=== PATIENT | female | born 1945 | race Caucasian/White ===

== ENCOUNTER 2017-12-29 15:57 | Inpatient (IN) | payer MEDICARE, BC ==
[2017-12-29] MEDS ORDERED: IPRATROPIUM-ALBUTEROL 3 ML NEB INHALATION STA (16:37)
--- NOTE | 2017-12-29 16:37 | ED ---
Skin/Abscess/FB HPI - General Chief complaint: Skin/Abscess/Foreign Body Stated complaint: Cellulitis Time Seen by Provider: 12/29/17 16:04 Source: EMS Mode of arrival: EMS Limitations: no limitations - History of Present Illness Initial comments: This is a 72-year-old female who presents to the ED with a chief complaint of sepsis with cellulitis of the left lower extremity which has been worsening over the last 3 weeks. The patient was transferred here from [facility] where she was given IV Vancomycin and Clindamycin. Chest x-rays, CBC, Troponin, BNP, BMP, and Lactic Acid were ordered during her stay at [facility]. Chest x-ray was unable to distinguish between a 5cm mass versus pneumonia. CBC revealed leukocytosis with elevated neutrophils. BNP was elevated at 189. BMP showed mild hyponatremeia. Lactic acid was elevated at 2.3. She had an albuterol nebulizer treatment. She has a significant history of congestive heart failure and COPD and reports having chronic lower extremity pitting edema. The patient is here for admission. - Related Data Home Medications Medication Instructions Recorded Confirmed Ipratropium-Albuterol Nebulize 3 ml IH RT-TID 12/29/17 12/29/17 [Duoneb 0.5 mg-3 mg/3 ml Soln] Previous Rx's Medication Instructions Recorded Furosemide [Lasix] 40 mg PO DAILY #30 tablet 06/11/15 Allergies Allergy/AdvReac Type Severity Reaction Status Date / Time Penicillins Allergy Unknown Verified 06/06/15 18:40 strawberry Allergy Unknown Verified 06/06/15 22:32 Review of Systems ROS Statement: Those systems with pertinent positive or pertinent negative responses have been documented in the HPI. ROS Other: All systems not noted in ROS Statement are negative. Past Medical History Past Medical History: Heart Failure, COPD Additional Past Medical History / Comment(s): 06-06-15 ADMITTED TO [facility] WITH COPD /CHF, OTHER HX HAND TREMORS(OCC). 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) Past Anesthesia/Blood Transfusion Reactions: No Reported Reaction Past Psychological History: No Psychological Hx Reported Smoking Status: Former smoker Past Alcohol Use History: Daily Past Drug Use History: None Reported - Past Family History Mother Family Medical History: Congestive Heart Failure (CHF), Coronary Artery Disease (CAD), Hyperlipidemia, Hypertension Additional Family Medical History / Comment(s): CABG Father Family Medical History: Cancer, Myocardial Infarction ([place]) General Exam Limitations: no limitations General appearance: alert, in no apparent distress Head exam: Present: atraumatic, normocephalic, normal inspection Eye exam: Present: normal appearance, PERRL, EOMI. Absent: scleral icterus, conjunctival injection, periorbital swelling Neck exam: Present: normal inspection. Absent: tenderness, meningismus, lymphadenopathy Respiratory exam: Present: respiratory distress, wheezes, accessory muscle use, other (labored breathing). Absent: normal lung sounds bilaterally Cardiovascular Exam: Present: normal rhythm, tachycardia, other (diminished heart sounds) GI/Abdominal exam: Present: normal bowel sounds Extremities exam: Present: other (Significant lower extremity pitting edema bilaterally. The left lower extremity is erythematous and significantly more edematous than the right and is indurated. Pedal pulses equal bilaterally) Back exam: Present: normal inspection Neurological exam: Present: alert, oriented X3, CN II-XII intact Psychiatric exam: Present: normal affect, normal mood Skin exam: Present: warm, dry, intact, normal color. Absent: rash Course Vital Signs 12/29/17 16:05 Temperature 98 F Pulse Rate 107 H Respiratory 16 Rate Blood Pressure 133/64 O2 Sat by Pulse 96 Oximetry Disposition Clinical Impression: COPD (chronic obstructive pulmonary disease), Lung mass, Left leg cellulitis, Sepsis Disposition: ADMITTED IP TO THIS HOSP Condition: Fair Referrals: Gabriel Rodriguez MD [Primary Care Provider] - 1-2 days
[2017-12-29] MEDS ORDERED: ACETAMINOPHEN TAB 325 MG TAB PO PRN (16:50)
[2017-12-29] MEDS ORDERED: NALOXONE 0.4 MG/ML 1 ML VIAL IV PRN (16:50)
[2017-12-29] MEDS ORDERED: VANCOMYCIN IV PER PHARMACY 1 EACH MISC MISCELLANE PRN (16:52)
[2017-12-29] MEDS ORDERED: TEMAZEPAM 15 MG CAP PO PRN (17:25)
[2017-12-29] MEDS ORDERED: HYDROmorphone 4 MG/ML 1 ML SYRINGE IVP PRN (17:25)
--- NOTE | 2017-12-29 17:33 | US ---
EXAMINATION TYPE: US venous doppler duplex LE LT DATE OF EXAM: 12/29/2017 5:12 PM COMPARISON: NONE CLINICAL HISTORY: Pain. Cellulitis left lower leg SIDE PERFORMED: Left TECHNIQUE: The lower extremity deep venous system is examined utilizing real time linear array sonog anabelle with graded compression, doppler sonography and color-flow sonography. VESSELS IMAGED: External Iliac Vein (EIV) Common Femoral Vein Deep Femoral Vein Greater Saphenous Vein * Femoral Vein Popliteal Vein Small Saphenous Vein * Proximal Calf Veins (* superficial vessels) Grayscale, color doppler, spectral doppler imaging performed of the deep veins of the lower extremity . There is normal flow, compressibility, vascular waveforms. IMPRESSION: Left Leg: No evidence of DVT
[2017-12-29] MEDS: INSULIN ASPART 100 UNIT/ML 1 ML 10 ML VIAL SQ SCH ×2 (17:48→20:07)
[2017-12-29] MEDS ORDERED: LEVOFLOXACIN 750MG-D5W PMX 750 MG in DEXTROSE/WATER 1 150ML.BAG IVPB ONE (18:00)
[2017-12-29] MEDS: methylPREDNISolone SOD SUCCI 125 MG/2 ML VIAL IV SCH ×2 (19:42→23:07)
[2017-12-29] MEDS ORDERED: IPRATROPIUM-ALBUTEROL 3 ML NEB INHALATION SCH (20:00)
[2017-12-29] MEDS: HYDROcodone/APAP 5-325MG 1 EACH TAB PO PRN (20:03)
[2017-12-29] MEDS: ALPRAZolam 0.25 MG TAB PO PRN (20:04)
[2017-12-29] MEDS: HEPARIN SODIUM,PORCINE 5,000 UNIT/ML 1 ML VIAL SQ SCH (20:04)
[2017-12-29 20:15] LABS: Glucose,Whole Blood 100 mg/dL (75-99)
[2017-12-29] MEDS: BUDESONIDE 1 MG/2 ML NEBU INHALATION SCH (20:52)
[2017-12-29] MEDS: FORMOTEROL FUMARATE 20 MCG/2 ML NEBU INHALATION SCH (20:53)
--- NOTE | 2017-12-29 21:38 | HP ---
HISTORY AND PHYSICAL DATE OF SERVICE: 12/29/17 CHIEF COMPLAINT: Shortness of breath and bilateral leg swelling. HISTORY: 72-year-old woman with past medical history of COPD, CHF, history of dermatitis, eczema, being followed by Dr. Mendiola in the outpatient setting, was complaining of shortness of breath for the last several years actually. The patient did not report any increase in the shortness of breath. The patient is extremely short of breath. The patient is a smoker and quit about 3 years ago. The patient is now complaining of redness and erythema of both legs and swelling also. The patient went to [facility] and subsequently was given antibiotics and transferred to [facility] Emergency Room as a direct admission at this time. There is no history of fever, rigors or chills. No headache, loss of consciousness or seizures at this time. PAST MEDICAL HISTORY: CHF, COPD, history of hand tremors, eczema, history of chronic respiratory failure. MEDICATIONS: Prior to admission include home medications are: 1. Prednisone 10 mg daily. 2. Pulmicort 0.5 mg b.i.d. 3. DuoNeb p.r.n. t.i.d. 4. Lasix 40 mg p.o. daily. ALLERGIES: PENICILLIN AND STRAWBERRIES. FAMILY HISTORY: History of CHF and CAD. Hypertension. Diabetes in the family. SOCIAL HISTORY: Previous history of smoking. Occasional alcohol intake. REVIEW OF SYSTEMS: ENT: No diminished vision, no diminished hearing. Cardiovascular System as mentioned earlier. RESPIRATORY: As mentioned earlier. GI no nausea or vomiting. no dysuria. Nervous system: No numbness, weakness. Allergy/Immunology: No asthma or hayfever. Musculoskeletal as mentioned earlier. Hematology/oncology: No history of anemia. Endocrine no history of diabetes or hypothyroidism. Constitutional: As mentioned earlier. Dermatology: Negative. Rheumatology: Negative. Psychiatric: As mentioned earlier. PHYSICAL EXAMINATION: The patient is alert and oriented x3. Pulse is 107. Blood pressure 130/84. Respirations 18. Temperature 98 degrees, pulse ox 98% on 2 L. HEENT: Conjunctivae normal. Oral mucosa moist. Neck is no jugular venous distention. No carotid bruit. No lymph node enlargement. Cardiovascular system: S1, S2 muffled. No S3, no S4. Respirations: Breath sounds diminished in the bases. A few scattered rhonchi and crackles. ABDOMEN: Soft, nontender. No mass palpable. Legs bilateral leg swelling and edema. Tenderness with some minimal discharge also present. NERVOUS SYSTEM: Higher functions as mentioned earlier, moves all 4 limbs, no focal motor or sensory deficits. Lymphatics: No lymph nodes palpable in the neck, axillae or groin. Skin no ulcer, rash or bleeding. LABS: At this time awaited. ASSESSMENT: 1. Chronic obstructive pulmonary disease acute exacerbation with acute purulent tracheobronchitis. 2. Acute bilateral leg cellulitis. 3. Chronic cor pulmonale. 4. Chronic hypoxic respiratory failure. 5. History of nicotine dependence. 6. History of eczema. 7. History of asthma. RECOMMENDATIONS AND DISCUSSION: In this 72-year-old woman who presented with multiple complex medical issues, we will monitor the patient closely. Continue the symptomatic treatment. Current management. We will initiate bronchodilators. Pulmonary consultation for infectious disease evaluation. Local treatment. Otherwise guarded prognosis because of multiple complex medical issues. Further recommendations to follow. Copy of dictation being forwarded to Dr. Mendiola who is the primary care physician. Home medications will be resumed. Prognosis guarded. MMODL / IJN: [id number] /
[2017-12-29] MEDS ORDERED: IPRATROPIUM-ALBUTEROL 3 ML NEB INHALATION PRN (22:44)
[2017-12-30] MEDS: methylPREDNISolone SOD SUCCI 125 MG/2 ML VIAL IV SCH ×3 (05:27→17:48)
[2017-12-30 06:55] LABS: Glucose,Whole Blood 186 mg/dL (75-99)
[2017-12-30] MEDS: INSULIN ASPART 100 UNIT/ML 1 ML 10 ML VIAL SQ SCH ×4 (07:40→21:55)
[2017-12-30] MEDS: PANTOPRAZOLE 40 MG TABLET PO SCH (08:28)
[2017-12-30] MEDS: HEPARIN SODIUM,PORCINE 5,000 UNIT/ML 1 ML VIAL SQ SCH ×2 (08:28→17:49)
[2017-12-30] MEDS ORDERED: VANCOMYCIN 1,750 MG in SODIUM CHLORIDE 0.9% 250 ML IVPB SCH (09:00)
[2017-12-30] MEDS: FORMOTEROL FUMARATE 20 MCG/2 ML NEBU INHALATION SCH ×2 (09:01→20:25)
[2017-12-30] MEDS: IPRATROPIUM-ALBUTEROL 3 ML NEB INHALATION SCH ×4 (09:01→20:25)
[2017-12-30] MEDS: BUDESONIDE 1 MG/2 ML NEBU INHALATION SCH ×2 (09:01→20:25)
[2017-12-30] MEDS ORDERED: HYDROmorphone 2 MG TAB PO PRN (10:07)
--- NOTE | 2017-12-30 10:28 | XR ---
EXAMINATION TYPE: XR chest 1V portable DATE OF EXAM: 12/30/2017 COMPARISON: 12/29/2017 HISTORY: Abnormal x-ray TECHNIQUE: Single frontal view of the chest is obtained. FINDINGS: Large mass within the right lung lower lobe. Atherosclerotic change aorta. Arthropathy of the shoulders. No overt failure or pneumothorax. Underlying COPD suggested. Evaluation left lung base limited due to technique. IMPRESSION: Large right-sided lung mass measuring 4.2 cm.
[2017-12-30 10:54] LABS: Basophils % (A) 0 %; Eosinophils % (A) 0 %; HCT 37.6 % (34.0-46.0); HGB 11.3 gm/dL (11.4-16.0); Hypochromasia Moderate; Lymphocytes # (A) 0.3 k/uL (1.0-4.8); Lymphocytes % (A) 2 %; MCH 27.4 pg (25.0-35.0); MCHC 30.1 g/dL (31.0-37.0); MCV 91.2 fL (80.0-100.0); Mean Platelet Volume 7.1; Monocytes # (A) 0.3 k/uL (0-1.0); Monocytes % (A) 2 %; Neutrophils # (A) 14.8 k/uL (1.3-7.7); Neutrophils % (A) 96 %; Platelet Count 235 k/uL (150-450); RBC 4.12 m/uL (3.80-5.40); WBC 15.4 k/uL (3.8-10.6)
[2017-12-30 11:10] LABS: Albumin 3.5 g/dL (3.5-5.0); Calcium 9.1 mg/dL (8.4-10.2); Potassium 3.9 mmol/L (3.5-5.1); Total Bilirubin 0.4 mg/dL (0.2-1.3); Total Protein 6.4 g/dL (6.3-8.2)
[2017-12-30] MEDS ORDERED: DRY MOUTH SPRAY 44.3 SPRAY/44.3 ML SPRAY MUCOUS MEM PRN (11:20)
[2017-12-30 11:48] LABS: Glucose,Whole Blood 156 mg/dL (75-99)
[2017-12-30 12:00] LABS: Hemoglobin A1C 5.7 % (4.0-6.0)
[2017-12-30] MEDS: MULTIVITAMINS, THERA 1 EACH TAB PO SCH (12:39)
--- NOTE | 2017-12-30 14:55 | CDI ---
Last Revision, October 2017 Documentation Clarification Form Date: 12/30/2017 2:46:00 PM From: Glendy Bowden RN Admit Date: 12/29/2017 4:54:00 PM Patient Name: Milagro Amaro Visit Number: [id number] ATTENTION: The Clinical Documentation Specialists (CDI) and [facility] Coding Staff appreciate your assistance in clarifying documentation. Please respond to the clarification below the line at the bottom and electronically sign. The CDI & [facility] Coding staff will review the response and follow-up if needed. Please note: Queries are made part of the Legal Health Record. If you have any questions, please contact the author of this message via ITS. Dr. Bean Arellano, History/Risk Factors: CHF, COPD, eczema, chronic respiratory failure Clinical Indicators: Patients labs on admission BUN/CR/GFR: 25/. Treatment: Monitor labs In order to capture the severity of condition, please clarify if the condition signifies: Acute kidney injury Acute on chronic renal failure CKD Stage 3 GFR 30-59 CKD Stage 4 GFR 15-29 Chronic renal failure/Chronic Kidney disease (CKD) please stage if known CKD Stage 2 GFR 60-89 CKD Stage 3 GFR 30-59 Other, please specify Unable to determine Please continue to document in your progress notes and discharge summary in order to capture severity of illness and risk of mortality. Include clinical findings that support your diagnosis. CKD Stage 3 GFR 30-59 MTDD
[2017-12-30] MEDS ORDERED: RX INFO: IV CONTRAST WAS GIVEN 1 EACH MISC MISCELLANE PRN (15:50)
--- NOTE | 2017-12-30 15:53 | P.CNPUL ---
History of Present Illness Consult date: 12/30/17 Reason for consult: dyspnea, cough Chief complaint: Shortness of breath History of present illness: This is a 72-year-old female who presented to the emergency department complaining of shortness of breath and leg swelling. The patient was seen by Dr. SOPHIA Samayoa in the office on 12/23/2017 with shortness of breath. The patient was advised admission to the hospital and further work up at that time, but refused and left the office against medical advice. She also refused Prednisone and further medications at the time. The patient's last PFT was 07.18 and showed very severe COPD with an FEV1 26% of predicted. The patient states she quit smoking about 3 years ago. She states she has lost some weight recently. She used to weigh 212 pounds and now she is down 288 pounds. She is complaining of bilateral leg swelling. She also complains of a cough with occasional phlegm. She denies fevers and chills. She takes Pulmicort twice a day and duo nebs 3-4 times a day at home. She states she has been on steroids for the last 3 years consistently. Review of Systems All systems: negative Past Medical History Past Medical History: Heart Failure, COPD Additional Past Medical History / Comment(s): 06-06-15 ADMITTED TO [facility] WITH COPD /CHF, OTHER HX HAND TREMORS(OCC). 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 Smoking Status: Former smoker Past Alcohol Use History: Daily Additional Past Alcohol Use History / Comment(s): pt states she hasnt smoked in 3 years. Past Drug Use History: None Reported - Past Family History Mother Family Medical History: Congestive Heart Failure (CHF), Coronary Artery Disease (CAD), Hyperlipidemia, Hypertension Additional Family Medical History / Comment(s): CABG Father Family Medical History: Cancer, Myocardial Infarction ([place]) Medications and Allergies Home Medications Medication Instructions Recorded Confirmed Type Furosemide [Lasix] 40 mg PO DAILY #30 tablet 06/11/15 12/29/17 Rx Budesonide [Pulmicort] 0.5 mg INHALATION RT-BID 12/29/17 12/29/17 History Ipratropium-Albuterol Nebulize 3 ml IH RT-TID 12/29/17 12/29/17 History [Duoneb 0.5 mg-3 mg/3 ml Soln] predniSONE 10 mg PO DAILY 12/29/17 12/29/17 History Allergies Allergy/AdvReac Type Severity Reaction Status Date / Time Penicillins Allergy Unknown Verified 12/29/17 16:51 strawberry Allergy Unknown Verified 12/29/17 16:51 Physical Exam Osteopathic Statement: *. No significant issues noted on an osteopathic structural exam other than those noted in the History and Physical/Consult. Vitals: Vital Signs Temp Pulse Pulse Resp BP BP Pulse Ox 12/30/17 14:57 98.3 F 107 H 18 129/60 90 L 12/30/17 11:35 104 H 12/30/17 11:25 104 H 12/30/17 09:20 102 H 12/30/17 09:12 98 12/30/17 09:03 98 12/30/17 08:00 98 16 12/30/17 07:00 97.7 F 98 16 122/65 91 L 12/29/17 21:46 97.5 F L 104 H 28 H 133/59 96 12/29/17 21:22 90 12/29/17 21:11 92 12/29/17 21:10 90 12/29/17 21:00 92 12/29/17 19:00 97.7 F 12/29/17 18:58 101 H 16 137/68 98 12/29/17 18:33 96 12/29/17 17:58 96 12/29/17 17:53 96 12/29/17 16:05 98 F 107 H 16 133/64 96 Intake and Output 12/30/17 12/30/17 12/30/17 06:59 14:59 22:59 Intake Total 490 Balance 490 Intake: Intake, IV Titration 250 Amount Vancomycin 1,750 mg In 250 Sodium Chloride 0.9% 250 ml @ 125 mls/hr IVPB Q24H [facility] Rx#:[id number] Oral 240 Other: Voiding Method Bedside Commode # Voids 3 1 # Bowel Movements 1 Weight 90.718 kg Patient Weight 12/31/17 06:59 Weight 90.718 kg Gen.: Patient is alert and oriented 3, conversational dyspnea Cardiac vascular: Regular rate and rhythm, S1/S2 Lungs: Diminished breath sounds bilaterally with scattered expiratory wheezing Abdomen: Soft nontender nondistended positive bowel sounds Extremities: 1+ pitting edema Results - Laboratory Findings CBC and BMP: 12/30/17 10:41 12/30/17 10:41 Abnormal lab findings: Abnormal Labs 12/29/17 12/30/17 12/30/17 20:06 06:53 10:41 WBC 15.4 H Hgb 11.3 L MCHC 30.1 L Neutrophils # 14.8 H Lymphocytes # 0.3 L Sodium Chloride BUN Creatinine Glucose POC Glucose (mg/dL) 100 H 186 H AST 12/30/17 12/30/17 10:41 11:32 WBC Hgb MCHC Neutrophils # Lymphocytes # Sodium 136 L Chloride 97 L BUN 25 H Creatinine 1.10 H Glucose 162 H POC Glucose (mg/dL) 156 H AST 49 H - Diagnostic Findings Chest x-ray: report reviewed, image reviewed Assessment and Plan Assessment: Acute on chronic hypoxic respiratory failure Acute exacerbation of COPD Acute exacerbation of severe persistent asthma Right lung mass Tracheobronchitis Bilateral lower extremity cellulitis Chronic cor pulmonale History of tobacco abuse Obstructive sleep apnea Obesity O2 to maintain saturation greater than or equal to 90% Bronchodilators Pulmicort, Perforomist Singulair CT of the chest to further assess lung mass Echocardiogram Antibiotics: Levaquin Solu-Medrol taper Sputum culture and cytology CPAP from home Incentive spirometry and pulmonary hygiene GI and DVT prophylaxis Thank you for this consultation. We will continue to follow along.
--- NOTE | 2017-12-30 16:42 | PN ---
PROGRESS NOTE DATE OF SERVICE: 12/30/2017 This 72-year-old woman who was admitted with COPD, acute exacerbation, acute purulent tracheobronchitis, also had bilateral leg cellulitis. The patient is on IV antibiotics. Patient is being closely monitored at this time. Infectious disease consultation is also being sought at this time. Past medical history reviewed. REVIEW OF SYSTEMS: CARDIOVASCULAR SYSTEM: No angina, palpitations. RESPIRATORY SYSTEM: As mentioned earlier. GI: As mentioned earlier. : No dysuria or retention. NERVOUS SYSTEM: No focal deficit. MUSCULOSKELETAL: As mentioned earlier. CURRENT MEDICATIONS: Current medications are reviewed and include: 1. Tylenol 650 q.6 p.r.n. 2. Shallowater 5 mg p.r.n. 3. DuoNeb q.i.d. and p.r.n. 4. Xanax 0.25 t.i.d. 5. Pulmicort 1 mg b.i.d. 6. Perforomist. 7. Heparin 5000 units subcutaneously b.i.d. 9. Levaquin 750 q.48 hours. 10.Solu-Medrol 60 IV q.6. 11.Singulair. 12.Narcan. 13.Protonix. 14.Restoril. 15.Vancomycin. PHYSICAL EXAMINATION: Patient is alert, oriented x3. Pulse is 107, blood pressure 128/60, respiration 18, temperature 98.3, pulse ox 92% on 3 L. The patient is extremely short of breath still. CARDIOVASCULAR SYSTEM: S1, S2 muffled. No S3. No S4. RESPIRATORY SYSTEM: Breath sounds diminished at the bases. Bilateral scattered rhonchi and focal crackles. CHEST: Emphysematous breathing efforts are markedly increased. ABDOMEN: Soft, obese, nontender. No mass palpable. LEGS: Bilateral leg edema and swelling and erythema. Tenderness also present. NERVOUS SYSTEM: No focal deficit. LABS: WBC 15.4, hemoglobin 11.3, sodium 136, potassium 3.9, glucose 162. ASSESSMENT: 1. Chronic obstructive pulmonary disease, acute exacerbation, with acute purulent tracheobronchitis. 2. Acute bilateral leg cellulitis. 3. Chronic cor pulmonale. 4. Chronic hypoxic respiratory failure. 5. History of nicotine dependence. 6. History of eczema. 7. Possible chronic kidney disease, stage II. 8. History of asthma. RECOMMENDATIONS AND DISCUSSION: In this 72-year-old woman who presented with multiple complex medical issues, at this time I recommend to continue the current medications, continue with symptomatic treatment, continue the antibiotics. I would recommend infectious disease and pulmonary consultations. Continue steroids. Continue the rest of the medications. Prognosis guarded because of multiple complex medical issues. See orders for further details. Patient still has significant COPD as well. Monitor fluid/electrolyte balance. Further recommendations to follow. JC / AGUSTINN: [id number] / MTDFlora
--- NOTE | 2017-12-30 16:50 | CT ---
"EXAMINATION TYPE: CT chest w con DATE OF EXAM: 12/30/2017 COMPARISON: 06/07/2015 HISTORY: SOB. CT DLP: 532.3 mGycm, Automated exposure control for dose reduction was used. CONTRAST: Performed injected with 80ml mL of Visipaque 320. TECHNIQUE: Axial images were obtained at 5 mm thick sections. Reconstructed images are reviewed on [employer] computer in the coronal plane. FINDINGS: Portion of the thyroid visualized is normal. There is a 0.4 cm nodular density within the right middle lobe. Series 4 image 28. There is a mass within the superior segment right lower lobe measuring 4.0 x 4.5 cm. This is new from 06/07/2015 comparison. This is microspiculated margins suspicious for neoplasm. There is an area of increased density within the lingula at the base. This could be atelectasis. Unde rlying mass is not excluded. There is a nodular density with additional increased density adjacent in the posterior lateral right lung base measuring 1.1 x 0.6 cm. Series 4 image 43. Underlying mass could be present at this level. This just inferior to the right lower lobe mass. There is a hypodense area within the subcarinal region measuring 2.2 x 2.9 cm in size suspicious for metastatic lymph node. Some mild increased density is adjacent to the right infrahilar region measur ing 1.3 cm suspicious for metastatic lymph node. The ascending aorta diameter at the level of the main pulmonary artery is 3.1 cm. The main pulmonary artery diameter at the bifurcation is 3.1 cm. Coronary artery calcification is present. Limited CT sections are obtained through the upper abdomen. Multiple gallstones are present. The righ t adrenal gland is enlarged 2.8 cm. This could be a metastatic lesion. IMPRESSIONS: 1. Spiculated mass right lower lobe. 2. Enlarged hypodense lymph node subcarinal region with smaller right infrahilar lymph nodes. Finding s are suspicious for metastatic lymph node nodes. 3. Enlarged right adrenal gland could be a metastatic lesion. A Webb message has been communicated to Bean Arellano MD via the [employer] | Critical Result s ystem on 12/30/2017 4:47 PM, Message ID [id number]."
[2017-12-30 16:58] LABS: Glucose,Whole Blood 133 mg/dL (75-99)
[2017-12-30] MEDS: ceFAZolin IN SWFI 2 GM/20 ML SYRINGE IVP SCH (17:49)
[2017-12-30] MEDS ORDERED: diphenhydrAMINE 50 MG/ML 1 ML VIAL ONE (17:50)
[2017-12-30] MEDS ORDERED: LEVOFLOXACIN 750MG-D5W PMX 750 MG in DEXTROSE/WATER 1 150ML.BAG IVPB SCH (18:00)
--- NOTE | 2017-12-30 20:51 | CONS ---
CONSULTATION DATE OF SERVICE: 12/30/2017. REASON FOR CONSULTATION: Left lower extremity cellulitis. HISTORY OF PRESENT ILLNESS: The patient is a 72-year-old female with past medical history significant for a known COPD and heart failure, presenting to the ER at [facility] yesterday with the chief complaints of increased swelling and redness to the left leg that has been going on for about 3 weeks, however, getting worse in the last 2 days. The patient has been complaining of pain in the left leg which is mostly likely dull aching pain for the last 3 days. Intensity about 4 to 5/10, and no radiation. Worse when she will bears any weight on it or walks on it. Some improvement when she keeps her legs elevated. The patient has been evaluated at [facility] where the patient was given dose of vancomycin, clindamycin. She did have elevated white count of 2.3, subsequently transferred to the [facility]. The patient did have lower extremity Dopplers that was negative for DVT. The patient did have a chest x- ray that shows right-sided lung mass 0.4 x 0.2 cm. However, the patient did not have significant cough or sputum production. Did have some difficulty in breathing, but no worsening and no high-grade fever. The patient has been started on Solu-Medrol and vancomycin. ID was consulted for further recommendations regarding antibiotic therapy. REVIEW OF SYSTEMS: Constitutional: Positive for weakness. No high-grade fever. Eyes no complaint. ENT no complaint. Respiratory as per HPI. Cardiovascular: No complaint. Genitourinary no complaint. Gastrointestinal: No complaint. Musculoskeletal no complaint. INTEGUMENTARY: As per HPI. PSYCHOLOGICAL: No complaint. Endocrine no complaint. Neurologic no complaint. PAST MEDICAL HISTORY: Significant for COPD, heart failure, Previous history of a tumor right eye, benign. PAST SURGICAL HISTORY: Tumor resection as a child. SOCIAL HISTORY: The patient did have significant smoking, quit about 3 days ago. No drinking or drug use. FAMILY HISTORY: Mother with history of congestive heart failure, coronary artery disease. Father with history of cancer and CT. ALLERGIES: PENICILLIN with a rash. No history of anaphylaxis. MEDICATIONS: Include the patient is currently on vancomycin, Restoril, Protonix, Narcan, Theragran, Singulair, Solu-Medrol, Levofloxacin, NovoLog, Dilaudid, Pulmicort, Tylenol. EXAMINATION: Her blood pressure is 129/60 with a pulse of 107, temperature is 98.3, she is 90 % on 3 L nasal cannula. General description is an elderly female up in the bed, up in no distress. No tachypnea or accessory muscles of respiration use. HEENT: Shows slight pallor. No scleral icterus. Oral mucosa membranes are dry. Neck trachea central. No thyromegaly. Lungs unlabored breathing, decreased breath sounds in the bases. No wheeze. Heart S1, S2. Regular rate and rhythm. ABDOMEN: Soft. No tenderness. Left leg with swelling and redness, slightly warm to touch. Some superficial ulceration. No drainage. Neurological: Patient is awake, alert, oriented x3. Mood and affect normal. LABS: Hemoglobin is 11, white count 15.4, with a BUN of 25, creatinine is 1.10. Sputum is currently pending. DIAGNOSTIC IMPRESSION AND PLAN: Patient with acute left lower extremity cellulitis with diffuse cellulitis likely streptococcal disease currently with no evidence of any purulence. This likely is an MRSA infection. The patient did have underlying congestive heart failure that is responsible for the swelling in the legs and subsequent cellulitis, the patient' s risk of cellulitis. She did have a history of PENICILLIN ALLERGY that will limit the number of antibiotics that could be safely used. However, there was no history of anaphylaxis. Cefazolin may be safe to use. The patient did have evidence of a mass of the lung could be related to possible malignancy. Clinically doubt pneumonia. PLAN: 1. We will go ahead and discontinue the vancomycin to prevent any nephrotoxicity and less risk of MRSA infection. 2. Will start p.o. cefazolin 2 g q.8 hours. 3. David the area of redness of the left leg. 4. Arun wrap was just above to below the knee. 5. We will follow up on the clinical condition and culture to further adjust medication if needed. Thank you for this consultation. Will follow this patient along with you. MMODL / IJN: [id number] / MTDFlora
[2017-12-30 20:59] LABS: Glucose,Whole Blood 175 mg/dL (75-99)
[2017-12-30] MEDS: MONTELUKAST 10 MG TAB PO SCH (21:58)
[2017-12-30] MEDS: LEVOFLOXACIN 750 MG TAB PO SCH (21:58)
[2017-12-31] MEDS: methylPREDNISolone SOD SUCCI 125 MG/2 ML VIAL IV SCH ×4 (00:07→17:43)
[2017-12-31] MEDS: HEPARIN SODIUM,PORCINE 5,000 UNIT/ML 1 ML VIAL SQ SCH ×3 (00:07→16:33)
[2017-12-31] MEDS: ceFAZolin IN SWFI 2 GM/20 ML SYRINGE IVP SCH ×3 (00:08→16:36)
[2017-12-31] MEDS: IPRATROPIUM-ALBUTEROL 3 ML NEB INHALATION SCH ×7 (00:38→23:38)
[2017-12-31 07:34] LABS: Glucose,Whole Blood 162 mg/dL (75-99)
[2017-12-31 07:46] LABS: Basophils % (A) 0 %; Eosinophils % (A) 0 %; HCT 37.8 % (34.0-46.0); HGB 11.6 gm/dL (11.4-16.0); Hypochromasia Moderate; Lymphocytes # (A) 0.4 k/uL (1.0-4.8); Lymphocytes % (A) 3 %; MCH 28.1 pg (25.0-35.0); MCHC 30.5 g/dL (31.0-37.0); Mean Platelet Volume 7.3; Monocytes # (A) 0.3 k/uL (0-1.0); Monocytes % (A) 2 %; Neutrophils # (A) 13.9 k/uL (1.3-7.7); Neutrophils % (A) 94 %; Platelet Count 213 k/uL (150-450); RBC 4.11 m/uL (3.80-5.40); RDW 15.3 % (11.5-15.5); WBC 14.7 k/uL (3.8-10.6)
[2017-12-31 08:09] LABS: Calcium 10.3 mg/dL (8.4-10.2); Potassium 4.3 mmol/L (3.5-5.1)
[2017-12-31] MEDS: PANTOPRAZOLE 40 MG TABLET PO SCH (08:09)
[2017-12-31] MEDS: INSULIN ASPART 100 UNIT/ML 1 ML 10 ML VIAL SQ SCH ×4 (08:09→22:06)
[2017-12-31] MEDS: BUDESONIDE 1 MG/2 ML NEBU INHALATION SCH ×2 (08:17→20:55)
[2017-12-31] MEDS: FORMOTEROL FUMARATE 20 MCG/2 ML NEBU INHALATION SCH ×2 (08:17→20:55)
--- NOTE | 2017-12-31 10:39 | P.PN ---
Subjective Progress Note Date: 12/31/17 Principal diagnosis: Acute exacerbation of COPD Patient seen and examined. Patient states her breathing is a little bit better today but she is still very short of breath with any exertion. She is complaining of cough productive of green sputum. The patient denies fevers and chills. She is made aware of her computed tomography scan results which shows a right lung mass. The patient states she is unsure if she wants a biopsy or any treatment. She states her and sister recently of cancer and she does not want to put this burden on her family. The patient is aware that if she doesn't have a biopsy with tissue diagnosis that she will not be able to undergo treatment. Objective - Vital Signs Vital signs: Vital Signs Temp 97.2 F L 12/31/17 07:00 Pulse 94 12/31/17 08:38 Resp 16 12/31/17 07:00 BP 125/78 12/31/17 07:00 Pulse Ox 96 12/31/17 07:00 Intake & Output 12/30/17 12/31/17 12/31/17 18:59 06:59 18:59 Intake Total 490 50 Balance 490 50 Weight 90.718 kg 90.718 kg Intake: Intake, IV Titration 250 50 Amount Vancomycin 1,750 mg In 250 Sodium Chloride 0.9% 250 ml @ 125 mls/hr IVPB Q24H SUNG Rx#:[id number] ceFAZolin 2 gm In Sodium 50 Chloride 0.9% 50 ml @ 100 mls/hr IVPB Q8HR SUNG Rx# :[id number] Oral 240 Other: Voiding Method Bedside Commode Bedside Commode # Voids 1 2 # Bowel Movements 1 1 - Exam Gen.: Patient is alert and oriented 3, conversational dyspnea Cardiac vascular: Regular rate and rhythm, S1/S2 Lungs: Diminished breath sounds bilaterally with scattered expiratory wheezing Abdomen: Soft nontender nondistended positive bowel sounds Extremities: 1+ pitting edema RLE, 3+ edema LLE - Labs CBC & Chem 7: 12/31/17 07:07 12/31/17 07:07 Labs: Abnormal Lab Results - Last 24 Hours (Table) 12/30/17 12/30/17 12/30/17 Range/Units 10:41 10:41 11:32 WBC 15.4 H (3.8-10.6) k/uL Hgb 11.3 L (11.4-16.0) gm/dL MCHC 30.1 L (31.0-37.0) g/dL Neutrophils # 14.8 H (1.3-7.7) k/uL Lymphocytes # 0.3 L (1.0-4.8) k/uL Sodium 136 L (137-145) mmol/L Chloride 97 L (98-107) mmol/L BUN 25 H (7-17) mg/dL Creatinine 1.10 H (0.52-1.04) mg/dL Glucose 162 H (74-99) mg/dL POC Glucose (mg/dL) 156 H (75-99) mg/dL Calcium (8.4-10.2) mg/dL AST 49 H (14-36) U/L 12/30/17 12/30/17 12/31/17 Range/Units 16:56 20:55 07:07 WBC (3.8-10.6) k/uL Hgb (11.4-16.0) gm/dL MCHC (31.0-37.0) g/dL Neutrophils # (1.3-7.7) k/uL Lymphocytes # (1.0-4.8) k/uL Sodium 136 L (137-145) mmol/L Chloride 97 L (98-107) mmol/L BUN 28 H (7-17) mg/dL Creatinine 1.11 H (0.52-1.04) mg/dL Glucose 161 H (74-99) mg/dL POC Glucose (mg/dL) 133 H 175 H (75-99) mg/dL Calcium 10.3 H (8.4-10.2) mg/dL AST (14-36) U/L 18 12/31/17 Range/Units 07:07 07:32 WBC 14.7 H (3.8-10.6) k/uL Hgb (11.4-16.0) gm/dL MCHC 30.5 L (31.0-37.0) g/dL Neutrophils # 13.9 H (1.3-7.7) k/uL Lymphocytes # 0.4 L (1.0-4.8) k/uL Sodium (137-145) mmol/L Chloride (98-107) mmol/L BUN (7-17) mg/dL Creatinine (0.52-1.04) mg/dL Glucose (74-99) mg/dL POC Glucose (mg/dL) 162 H (75-99) mg/dL Calcium (8.4-10.2) mg/dL AST (14-36) U/L Microbiology - Last 24 Hours (Table) 12/29/17 22:02 Blood Culture - Preliminary Blood No Growth after 24 hours 12/29/17 19:02 Gram Stain - Preliminary Leg - Left Wound Culture - Preliminary Beta Hemolytic Strep Group G 12/29/17 23:00 Gram Stain - Preliminary Sputum 12/29/17 20:05 Urine Culture - Preliminary Urine,Voided Assessment and Plan Assessment: Acute on chronic hypoxic respiratory failure Acute exacerbation of COPD Acute exacerbation of severe persistent asthma Right lung mass 4.0 x 4.5 cm Mediastinal lymphadenopathy concerning for metastatic disease Tracheobronchitis Bilateral lower extremity cellulitis Chronic cor pulmonale History of tobacco abuse Obstructive sleep apnea Obesity O2 to maintain saturation greater than or equal to 90% Bronchodilators Pulmicort, Perforomist Singulair CT of the chest to further assess lung mass Echocardiogram Antibiotics: Levaquin Solu-Medrol taper Sputum culture and cytology CPAP from home Incentive spirometry and pulmonary hygiene GI and DVT prophylaxis Patient is going to talk to her family and decide if she wants a biopsy. She is unsure she wants a biopsy or treatment at this time. She states she thinks she just wants to go on with her life and not have treatment. If she decides to have a biopsy, CT guided needle biopsy would be advised, can discuss with IR once the decision is made.
[2017-12-31] MEDS ORDERED: FUROSEMIDE 10 MG/ML 2 ML VIAL IV ONE (11:30)
[2017-12-31 12:44] LABS: Glucose,Whole Blood 154 mg/dL (75-99)
[2017-12-31] MEDS: MULTIVITAMINS, THERA 1 EACH TAB PO SCH (13:16)
--- NOTE | 2017-12-31 13:17 | ECHOF ---
Referral Reason:shortness of breath, pulmonary hypertension MEASUREMENTS -------- HEIGHT: 157.5 cm WEIGHT: 90.7 kg BP: 129/60 RVIDd: 2.8 cm (< 3.3) IVSd: 1.0 cm (0.6 - 1.1) LVIDd: 4.6 cm (3.9 - 5.3) LVPWd: 1.1 cm (0.6 - 1.1) IVSs: 1.7 cm LVIDs: 3.0 cm LVPWs: 1.4 cm LA Diam: 3.6 cm (2.7 - 3.8) LAESV Index (A-L): 26.65 ml/m Ao Diam: 2.9 cm (2.0 - 3.7) AV Cusp: 1.7 cm (1.5 - 2.6) EPSS: 0.4 cm MV E Ruy: 0.86 m/s MV DecT: 199 ms MV A Ruy: 1.44 m/s MV E/A Ratio: 0.60 AV maxP.14 mmHg AV meanP.53 mmHg MV EF SLOPE: 62.01 mm/s (70 - 150) MV EXCURSION: 1.29 cm (> 18.000) FINDINGS -------- Sinus rhythm. This was a technically adequate study. The left ventricular size is normal. There is borderline concentric left ventricular hypertrophy. Overall left ventricular systolic function is normal with, an EF between 55 - 60 %. The right ventricle is normal in size. Normal LA size by volume 22+/-6 ml/m2. The right atrium is normal in size. There is mild aortic valve sclerosis. Mild mitral annular calcification present. Mild mitral regurgitation is present. The tricuspid valve appears structurally normal. Mild tricuspid regurgitation present. The pulmonic valve was not well visualized. There is no pulmonic regurgitation present. The aortic root size is normal. Normal inferior vena cava with normal inspiratory collapse consistent with estimated right atrial pre ssure of 5 mmHg. There is a trivial pericardial effusion present. CONCLUSIONS -------- 1. Sinus rhythm. 2. This was a technically adequate study. 3. The left ventricular size is normal. 4. There is borderline concentric left ventricular hypertrophy. 5. Overall left ventricular systolic function is normal with, an EF between 55 - 60 %. 6. Normal LA size by volume 22+/-6 ml/m2. 7. There is mild aortic valve sclerosis. 8. Mild mitral annular calcification present. 9. Mild mitral regurgitation is present. 10. The tricuspid valve appears structurally normal. 11. Mild tricuspid regurgitation present. 12. The pulmonic valve was not well visualized. 13. There is no pulmonic regurgitation present. 14. The aortic root size is normal. 15. Normal inferior vena cava with normal inspiratory collapse consistent with estimated right atrial pressure of 5 mmHg. 16. There is a trivial pericardial effusion present. WASHER HAND: MARGRET Bynum
--- NOTE | 2017-12-31 14:40 | PN ---
PROGRESS NOTE DATE OF SERVICE: 12/31/2017 REASON FOR FOLLOWUP: Left leg cellulitis. INTERVAL HISTORY: The patient is afebrile. She is breathing comfortably. Denies having any chest pain. Did have some cough, no worsening though. No abdominal pain. Did have slight oozing from the left leg. PHYSICAL EXAMINATION: On examination, blood pressure 125/78 with a pulse of 92, temperature 97.2. She is 96% on 4 L nasal cannula. General description is an elderly female up in the chair in no distress. RESPIRATORY SYSTEM: Unlabored breathing with decreased breath sounds at the bases, no wheeze. HEART: S1, S2. Regular rate and rhythm. ABDOMEN: Soft, no tenderness. Left leg swelling . Redness slightly decreased in intensity. Some serous drainage. No foul smelling. LABS: Hemoglobin 11.6, white count 14.7 with a BUN of 28, creatinine is 1.11. Wound culture with group G strep. Blood culture has been negative. DIAGNOSTIC IMPRESSION AND PLAN: Patient with left leg cellulitis with diffuse swelling and redness likely streptococcal disease with culture showed the same organism. Plan at this time is to give the patient cefazolin 2 grams q.8. Arun wrap tot he leg to keep the swelling down. Continue with supportive care. MMODL / IJN: [id number] /
[2017-12-31 17:19] LABS: Glucose,Whole Blood 198 mg/dL (75-99)
--- NOTE | 2017-12-31 18:40 | PN ---
PROGRESS NOTE DATE OF SERVICE: 12/31/2017 This 72-year-old woman who was admitted with COPD, acute exacerbation, as well as bilateral leg swelling also had a lung tumor. CT scan showed a significant lesion on the right side. The patient has been closely monitored. The patient is not quite sure how to proceed. Dr. Rosa and Dr. Maldonado are following the patient closely. The patient is still complaining of cough and productive sputum. Past medical history reviewed. REVIEW OF SYSTEMS: CARDIOVASCULAR SYSTEM: As mentioned earlier. RESPIRATORY SYSTEM: As mentioned earlier. GI: No nausea, vomiting. : No dysuria or retention. NERVOUS SYSTEM: No numbness, weakness. CURRENT MEDICATIONS: 1. Tylenol 650 q.6 p.r.n. 2. [place]. 3. Xanax 0.25 t.i.d. 4. Pulmicort 1 b.i.d. 5. Kefzol 2 grams IV q.8. 6. Perforomist. 7. Heparin 5000 units subcutaneously q.8. 9. Levaquin. 10.Solu-Medrol 60 IV q.6. 11.Multivitamins. 12.Narcan. 13.Protonix. 14.Singulair. 15.Restoril. PHYSICAL EXAMINATION: Patient is alert, oriented x3. Pulse 94, blood pressure 142/60, respiration 16, temperature 97.8, pulse ox 96% on 4 L. HEENT: Conjunctivae normal. Oral mucosa moist. NECK: No jugular venous distention. No carotid bruit. No lymph node enlargement. CARDIOVASCULAR SYSTEM: S1, S2 muffled. No S3. No S4. RESPIRATORY SYSTEM: Breath sounds diminished at the bases. A few scattered rhonchi and crackles. Expiratory wheezing also. ABDOMEN: Soft, nontender. No mass palpable. LEGS: Bilateral leg cellulitis, left worse than right. NERVOUS SYSTEM: Higher functions as mentioned earlier. Moves all 4 limbs. No focal motor or sensory deficit. LYMPHATICS: No lymph node palpable in neck, axillae or groin. SKIN: No ulcer, rash, bleeding. LABS: WBC 14.7. Hemoglobin is 11.6. INR is 1.1. ASSESSMENT: 1. Chronic obstructive pulmonary disease, acute exacerbation, with acute hypoxic respiratory failure, acute on chronic. 2. Right lung cancer possibly. 3. Acute bilateral leg cellulitis, left more than the right. 4. Left leg swelling with no evidence of deep venous thrombosis. 5. Chronic cor pulmonale. 6. Chronic hypoxic respiratory failure. 7. History of nicotine dependence. 8. History of eczema. 9. Possible chronic kidney disease, stage III. 10.History of asthma. RECOMMENDATIONS AND DISCUSSION: I recommend to continue current medication, continue with continue with symptomatic treatment. Continue with steroids. Continue with bronchodilators. Closely follow with Dr. Maldonado. Guarded prognosis because of multiple complex medical issues. Further recommendations to follow. Otherwise, influenza is negative. Biopsy will be discussed with the patient. The patient is not very keen on pursuing it, but she will discuss it with the family and decide. Overall prognosis guarded. Continue with antibiotics. Further recommendations to follow. MMODL / IJN: [id number] / DILLON
[2017-12-31 20:46] LABS: Glucose,Whole Blood 260 mg/dL (75-99)
[2017-12-31] MEDS: MONTELUKAST 10 MG TAB PO SCH (22:06)
[2018-01-01] MEDS: HEPARIN SODIUM,PORCINE 5,000 UNIT/ML 1 ML VIAL SQ SCH ×4 (00:05→23:45)
[2018-01-01] MEDS: methylPREDNISolone SOD SUCCI 125 MG/2 ML VIAL IV SCH ×5 (00:06→23:45)
[2018-01-01] MEDS: ceFAZolin IN SWFI 2 GM/20 ML SYRINGE IVP SCH ×4 (00:12→23:45)
[2018-01-01] MEDS: IPRATROPIUM-ALBUTEROL 3 ML NEB INHALATION SCH ×6 (03:15→23:29)
[2018-01-01 07:14] LABS: Glucose,Whole Blood 193 mg/dL (75-99)
[2018-01-01 07:49] LABS: Basophils % (A) 0 %; Eosinophils % (A) 0 %; HCT 34.5 % (34.0-46.0); HGB 10.5 gm/dL (11.4-16.0); Hypochromasia Slight; Lymphocytes # (A) 0.4 k/uL (1.0-4.8); Lymphocytes % (A) 3 %; MCH 27.4 pg (25.0-35.0); MCHC 30.4 g/dL (31.0-37.0); MCV 90.1 fL (80.0-100.0); Monocytes # (A) 0.4 k/uL (0-1.0); Monocytes % (A) 3 %; Neutrophils % (A) 92 %; Platelet Count 221 k/uL (150-450); RBC 3.83 m/uL (3.80-5.40); WBC 10.8 k/uL (3.8-10.6)
[2018-01-01 07:52] LABS: Anion Gap 9 mmol/L; Blood Urea Nitrogen 30 mg/dL (7-17); Calcium 10.1 mg/dL (8.4-10.2); Carbon Dioxide 32 mmol/L (22-30); Chloride 100 mmol/L (98-107); Glucose 174 mg/dL (74-99); Potassium 4.2 mmol/L (3.5-5.1); Sodium 141 mmol/L (137-145)
[2018-01-01] MEDS: FORMOTEROL FUMARATE 20 MCG/2 ML NEBU INHALATION SCH ×2 (08:26→20:32)
[2018-01-01] MEDS: BUDESONIDE 1 MG/2 ML NEBU INHALATION SCH ×2 (08:26→20:31)
[2018-01-01] MEDS: INSULIN ASPART 100 UNIT/ML 1 ML 10 ML VIAL SQ SCH ×4 (09:04→20:13)
[2018-01-01] MEDS: PANTOPRAZOLE 40 MG TABLET PO SCH (09:04)
[2018-01-01 11:39] LABS: Glucose,Whole Blood 216 mg/dL (75-99)
[2018-01-01] MEDS: MULTIVITAMINS, THERA 1 EACH TAB PO SCH (12:44)
--- NOTE | 2018-01-01 15:20 | PN ---
PROGRESS NOTE DATE OF SERVICE: January 01, 2018. She is less short of breath and doing significantly better overall from a pulmonary perspective. On physical examination, her respiratory rate is 18, pulse rate 90, temperature is normal, O2 saturation on 2 L by nasal cannula is 92%. HEENT is unremarkable. Chest reveals prolonged expiration. No wheeze today. Cardiovascular system revealed an S1, S2. Abdomen is soft. There is trace edema. IMPRESSION: At this time is: 1. Cellulitis. 2. Chronic obstructive pulmonary disease with acute exacerbation. 3. Lung mass consistent with lung cancer in the right lower lobe for which the patient is unclear whether she would want further workup. She is a poor candidate for treatment because of her lung function which is extremely poor. In 2015, her FEV1 was 0.83 L post-bronchodilator. Continue on the current medications which were reviewed. MMODL / IJN: [id number] /
[2018-01-01 16:27] LABS: Glucose,Whole Blood 227 mg/dL (75-99)
--- NOTE | 2018-01-01 18:53 | PN ---
PROGRESS NOTE DATE OF SERVICE: 01/01/2018 This 72 -year-old woman was admitted to the hospital with COPD exacerbation also had possible lung cancer in the right lung. Patient also with cellulitis, left more than the right. No chest pain. No palpitations. Broad-spectrum IV antibiotics. No fever and no cough. EXAM: On exam alert, oriented, times three. Pulse 101, blood pressure 129/60, respiration 18, temperature 97.4, pulse ox 94% on 4 L. HEENT: Conjunctivae normal. Neck is no jugular venous distention. Cardiovascular: S1, S2 muffled. Respirations: Breath sounds diminished in the bases. A few scattered rhonchi and crackles. ABDOMEN: Soft, nontender. Legs, left more than right. Central nervous system : No focal deficits. LAB STUDIES: WBC 10.8, Accu-Cheks are noted. ASSESSMENT: 1. Chronic obstructive pulmonary disease acute exacerbation with acute hypoxic respiratory failure, acute on chronic. 2. Right lung cancer possibly. 3. Acute bilateral leg cellulitis, left more than the right. 4. Left leg swelling with no evidence of DVT. 5. Chronic cor pulmonale. 6. History of chronic hypoxic respiratory failure. 7. History of nicotine dependence. 9. Possible chronic kidney stage 3. 10.History of asthma. RECOMMENDATIONS AND DISCUSSION: I recommend to continue current medications, management and symptomatic treatment. Otherwise, at this time, we will monitor the patient closely. Continue with current medications. Continue with symptomatic treatment. I would follow the patient closely with pulmonary. The patient is still contemplating the need for biopsy for the lung mass. The prognosis is extremely guarded because of the severe significant COPD. MMODL / IJN: [id number] / DILLON
[2018-01-01] MEDS: LEVOFLOXACIN 750 MG TAB PO SCH (20:10)
[2018-01-01 20:11] LABS: Glucose,Whole Blood 306 mg/dL (75-99)
[2018-01-01] MEDS: MONTELUKAST 10 MG TAB PO SCH (20:11)
[2018-01-02] MEDS: ALPRAZolam 0.25 MG TAB PO PRN ×2 (01:38→21:33)
[2018-01-02] MEDS: IPRATROPIUM-ALBUTEROL 3 ML NEB INHALATION SCH ×5 (03:14→21:05)
[2018-01-02] MEDS: methylPREDNISolone SOD SUCCI 125 MG/2 ML VIAL IV SCH (06:02)
[2018-01-02 07:21] LABS: Glucose,Whole Blood 164 mg/dL (75-99)
[2018-01-02 07:28] LABS: Basophils % (A) 0 %; Eosinophils % (A) 0 %; HCT 34.2 % (34.0-46.0); HGB 10.3 gm/dL (11.4-16.0); Hypochromasia Moderate; Lymphocytes # (A) 0.4 k/uL (1.0-4.8); Lymphocytes % (A) 4 %; MCH 27.3 pg (25.0-35.0); MCHC 30.1 g/dL (31.0-37.0); MCV 90.8 fL (80.0-100.0); Mean Platelet Volume 7.4; Monocytes # (A) 0.3 k/uL (0-1.0); Monocytes % (A) 4 %; Neutrophils # (A) 7.5 k/uL (1.3-7.7); Neutrophils % (A) 91 %; Platelet Count 227 k/uL (150-450); RBC 3.76 m/uL (3.80-5.40); WBC 8.2 k/uL (3.8-10.6)
[2018-01-02] MEDS: BUDESONIDE 1 MG/2 ML NEBU INHALATION SCH ×2 (07:29→21:06)
[2018-01-02] MEDS: FORMOTEROL FUMARATE 20 MCG/2 ML NEBU INHALATION SCH ×2 (07:29→21:05)
[2018-01-02 07:38] LABS: Anion Gap 7 mmol/L; Blood Urea Nitrogen 30 mg/dL (7-17); Calcium 10.1 mg/dL (8.4-10.2); Carbon Dioxide 33 mmol/L (22-30); Chloride 102 mmol/L (98-107); Glucose 149 mg/dL (74-99); Potassium 4.6 mmol/L (3.5-5.1); Sodium 142 mmol/L (137-145)
[2018-01-02] MEDS: PANTOPRAZOLE 40 MG TABLET PO SCH (08:07)
[2018-01-02] MEDS: HEPARIN SODIUM,PORCINE 5,000 UNIT/ML 1 ML VIAL SQ SCH ×3 (08:07→23:36)
[2018-01-02] MEDS: ceFAZolin IN SWFI 2 GM/20 ML SYRINGE IVP SCH ×3 (08:08→23:45)
[2018-01-02] MEDS: INSULIN ASPART 100 UNIT/ML 1 ML 10 ML VIAL SQ SCH ×4 (08:08→21:33)
[2018-01-02 11:57] LABS: Glucose,Whole Blood 238 mg/dL (75-99)
[2018-01-02] MEDS: MULTIVITAMINS, THERA 1 EACH TAB PO SCH (13:02)
--- NOTE | 2018-01-02 15:36 | PN ---
PROGRESS NOTE DATE OF SERVICE: 01/02/2018. She has been hemodynamically stable. She is less short of breath. PHYSICAL EXAMINATION: Respiratory rate is 18, pulse rate 84. She is afebrile, O2 saturation on 3 L by nasal cannula is 93%. Blood pressure 138/70. HEENT is unremarkable. Chest reveals decreased breath sounds with prolonged expiration. No clear wheeze. Cardiovascular system reveals an S1, S2. Abdomen is soft. There is no edema. LABS AND MEDICATIONS: Reviewed. IMPRESSION: At this time, 1. Cellulitis. 2. Lung mass in the right lower lobe for which the patient is unsure on what she would want as far as treatment goes. She was enquiring regarding modalities of treatment versus observation. For this reason, we will have Radiation Oncology as well as Medical Oncology further evaluate the patient. 3. Chronic obstructive pulmonary disease with exacerbation. Continue on the current medications which were reviewed. She will require a steroid taper that can be done as an outpatient. Previously, patient has been noncompliant in the past and actually had refused being hospitalized a week ago when I saw her in the office. For this reason, it is also prudent that she have an oncologic evaluation prior to her discharge, as it is unclear whether she will follow up in the future. Depending on how she does we shall make further changes to her care. MMODL / IJN: [id number] /
[2018-01-02] MEDS ORDERED: IOHEXOL 350 MG/ML 25 ML BOTTLE (ORAL USE) PO PRN (16:26)
[2018-01-02 17:11] LABS: Glucose,Whole Blood 123 mg/dL (75-99)
--- NOTE | 2018-01-02 18:06 | PN ---
PROGRESS NOTE DATE OF SERVICE: 01/02/2018 This 72-year-old woman is admitted with COPD exacerbation, also had right-sided lung malignancy also. The patient is contemplating about the biopsy report at this time. Patient also has significant leg cellulitis. Also as mentioned by pulmonology doctor, Dr. Norman Samayoa, the patient has history of noncompliance as well. No chest pain. No palpitations. No fever. PHYSICAL EXAMINATION: On exam, the pulse is 92, blood pressure 130/77, respiration 16, temperature 97.4, pulse ox 97% on 4 L. HEENT is conjunctivae normal. Neck is no jugular venous distention. Cardiovascular: S1, S2 muffled. Respiratory: Breath sounds diminished in the bases. A few scattered rhonchi and crackles. Abdomen is soft, nontender. Legs are no edema. No swelling. Central nervous system: No focal deficits. LABS: WBC 8.1, hemoglobin 10.3. ASSESSMENT: 1. Chronic obstructive pulmonary disease exacerbation with acute hypoxic respiratory failure, acute on chronic, present on admission. 2. Right lung cancer possibly. 3. Acute bilateral leg cellulitis, left more than the right. 4. Left leg swelling. No evidence of DVT. 5. Chronic cor pulmonale. 6. History of chronic hypoxic respiratory failure. 7. History of nicotine dependence. 8. Possible chronic kidney disease stage 3. 9. History of asthma. RECOMMENDATIONS AND DISCUSSION: Recommend to continue current medications. Monitoring. Symptomatic treatment. also recommend abdominal and pelvis CAT scan, also complete workup. Otherwise we will follow the patient closely and see orders for details. MMODL / IJN: [id number] /
[2018-01-02] MEDS: methylPREDNISolone SOD SUCCI 40 MG/ML 1 ML VIAL IV SCH ×2 (18:07→23:37)
[2018-01-02] MEDS: HYDROcodone/APAP 5-325MG 1 EACH TAB PO PRN (19:30)
[2018-01-02 21:09] LABS: Glucose,Whole Blood 224 mg/dL (75-99)
[2018-01-02] MEDS: MONTELUKAST 10 MG TAB PO SCH (21:33)
--- NOTE | 2018-01-02 23:33 | PN ---
PROGRESS NOTE DATE OF SERVICE: 01/02/18 REASON FOR FOLLOWUP: Left leg cellulitis. INTERVAL HISTORY: The patient is afebrile. She is breathing more comfortably. Denies having any chest pain. Occasional cough. No abdominal pain and no pain in her left leg area. PHYSICAL EXAMINATION: Blood pressure is 116/72 with a pulse of 108 temperature 97.3. She is 94% on 3 L nasal cannula. General description is an elderly female up in the chair in no distress. Respiratory system: Unlabored breathing with decreased breath sounds at the bases. No wheeze. Heart S1, S2. Regular rate and rhythm. Abdomen soft, no tenderness. Left flank wall swelling and redness improved. O drainage. LABS: BUN 8. Hemoglobin is 12.8, white count 8.2 with a BUN of 30, creatinine 0.88. DIAGNOSTIC IMPRESSION AND PLAN: Patient with left leg cellulitis. Culture positive with Group B strep MSSA. The patient is currently on cefazolin 2 g. Will continue along with Arun wrap to keep the swelling down. Hopefully finish therapy with oral antibiotics. Continue supportive care. MMODL / IJN: [id number] /
[2018-01-03] MEDS: IPRATROPIUM-ALBUTEROL 3 ML NEB INHALATION SCH ×6 (00:28→19:44)
[2018-01-03 07:26] LABS: Basophils % (A) 0 %; Eosinophils % (A) 0 %; HCT 37.9 % (34.0-46.0); HGB 11.2 gm/dL (11.4-16.0); Hypochromasia Marked; Lymphocytes # (A) 0.4 k/uL (1.0-4.8); Lymphocytes % (A) 4 %; MCH 28.1 pg (25.0-35.0); MCHC 29.7 g/dL (31.0-37.0); MCV 94.8 fL (80.0-100.0); Mean Platelet Volume 7.1; Monocytes # (A) 0.4 k/uL (0-1.0); Monocytes % (A) 4 %; Neutrophils # (A) 8.6 k/uL (1.3-7.7); Neutrophils % (A) 91 %; Platelet Count 231 k/uL (150-450); RDW 15.2 % (11.5-15.5); WBC 9.5 k/uL (3.8-10.6)
[2018-01-03 07:30] LABS: Glucose,Whole Blood 149 mg/dL (75-99)
[2018-01-03 07:52] LABS: Anion Gap 6 mmol/L; Blood Urea Nitrogen 30 mg/dL (7-17); Calcium 10.4 mg/dL (8.4-10.2); Carbon Dioxide 35 mmol/L (22-30); Chloride 103 mmol/L (98-107); Glucose 160 mg/dL (74-99); Potassium 5.6 mmol/L (3.5-5.1); Sodium 144 mmol/L (137-145)
[2018-01-03] MEDS: INSULIN ASPART 100 UNIT/ML 1 ML 10 ML VIAL SQ SCH ×4 (08:08→21:12)
[2018-01-03] MEDS: ceFAZolin IN SWFI 2 GM/20 ML SYRINGE IVP SCH ×3 (08:09→23:28)
[2018-01-03] MEDS: PANTOPRAZOLE 40 MG TABLET PO SCH (08:11)
[2018-01-03] MEDS: MULTIVITAMINS, THERA 1 EACH TAB PO SCH (08:12)
[2018-01-03] MEDS: methylPREDNISolone SOD SUCCI 40 MG/ML 1 ML VIAL IV SCH (08:12)
[2018-01-03] MEDS: HEPARIN SODIUM,PORCINE 5,000 UNIT/ML 1 ML VIAL SQ SCH ×3 (08:12→23:28)
[2018-01-03] MEDS: BUDESONIDE 1 MG/2 ML NEBU INHALATION SCH ×2 (08:14→19:42)
[2018-01-03] MEDS: FORMOTEROL FUMARATE 20 MCG/2 ML NEBU INHALATION SCH ×2 (08:14→19:42)
--- NOTE | 2018-01-03 10:51 | P.PN ---
Subjective Progress Note Date: 01/03/18 Principal diagnosis: Acute exacerbation of COPD Patient seen and examined. Patient states she does not want a tissue biopsy. She states she does not want any chemotherapy or radiation therapy. She states "we all have a wish." She states she knows that she will eventually from this. She states "we all have to from something." Objective - Vital Signs Vital signs: Vital Signs Temp 97.5 F L 01/03/18 07:00 Pulse 92 01/03/18 08:39 Resp 18 01/03/18 08:00 BP 156/75 01/03/18 07:00 Pulse Ox 93 L 01/03/18 08:18 Intake & Output 01/02/18 01/03/18 01/03/18 18:59 06:59 18:59 Intake Total 1480 Balance 1480 Intake: Oral 1480 Other: Voiding Method Bedside Commode Bedside Commode Bedside Commode # Voids 3 1 # Bowel Movements 1 - Exam Gen.: Patient is alert and oriented 3, conversational dyspnea Cardiac vascular: Regular rate and rhythm, S1/S2 Lungs: Diminished breath sounds bilaterally with scattered expiratory wheezing Abdomen: Soft nontender nondistended positive bowel sounds Extremities: 1+ pitting edema RLE, 3+ edema LLE - Labs CBC & Chem 7: 01/03/18 06:46 01/03/18 06:46 Labs: Abnormal Lab Results - Last 24 Hours (Table) 01/02/18 01/02/18 01/02/18 Range/Units 11:52 17:05 21:07 Hgb (11.4-16.0) gm/dL MCHC (31.0-37.0) g/dL Neutrophils # (1.3-7.7) k/uL Lymphocytes # (1.0-4.8) k/uL Potassium (3.5-5.1) mmol/L Carbon Dioxide (22-30) mmol/L BUN (7-17) mg/dL Glucose (74-99) mg/dL POC Glucose (mg/dL) 238 H 123 H 224 H (75-99) mg/dL Calcium (8.4-10.2) mg/dL 01/03/18 01/03/18 01/03/18 Range/Units 06:46 06:46 06:56 Hgb 11.2 L (11.4-16.0) gm/dL MCHC 29.7 L (31.0-37.0) g/dL Neutrophils # 8.6 H (1.3-7.7) k/uL Lymphocytes # 0.4 L (1.0-4.8) k/uL Potassium 5.6 H (3.5-5.1) mmol/L Carbon Dioxide 35 H (22-30) mmol/L BUN 30 H (7-17) mg/dL Glucose 160 H (74-99) mg/dL POC Glucose (mg/dL) 149 H (75-99) mg/dL Calcium 10.4 H (8.4-10.2) mg/dL Microbiology - Last 24 Hours (Table) 12/29/17 22:02 Blood Culture - Preliminary Blood No Growth after 96 hours 12/29/17 23:00 Gram Stain - Preliminary Sputum Sputum Culture - Preliminary Staphylococcus aureus Mariah albicans Assessment and Plan Assessment: Acute on chronic hypoxic respiratory failure Acute exacerbation of COPD Acute exacerbation of severe persistent asthma Right lung mass 4.0 x 4.5 cm Mediastinal lymphadenopathy concerning for metastatic disease Tracheobronchitis Bilateral lower extremity cellulitis Chronic cor pulmonale History of tobacco abuse Obstructive sleep apnea Obesity O2 to maintain saturation greater than or equal to 90% Bronchodilators Pulmicort, Perforomist Singulair CT of the chest to further assess lung mass Echocardiogram Antibiotics: Levaquin Solu-Medrol - change to PO Prednisone today Sputum culture and cytology CPAP from home Incentive spirometry and pulmonary hygiene GI and DVT prophylaxis Patient is refusing biposy and treatment for cancer. Consult psychiatry to ensure that depression isn't the underlying reason for these decisions.
[2018-01-03 11:42] LABS: Glucose,Whole Blood 170 mg/dL (75-99)
--- NOTE | 2018-01-03 17:00 | P.CONS ---
History of Present Illness - Reason for Consult Consult date: 01/03/18 lung mass Requesting physician: Faraz Samayoa - Chief Complaint lung mass - History of Present Illness Ms. Amaro is a very pleasant female with a history of COPD who became O2 dependent about 3 years ago. She came to the hospital for progressive LLE cellulitis and on work up for her complex conditions she was found to have a RLL mass, medistinal lymphadenopathy and an enlarged adrenal gland. She was offered a biopsy but, is adamant that she does not want a biopsy. She also has a left breast mass that she states has been there for nearly "20 years", it was caused by a horse bite, she denies any changes in the area. Pt denied night sweats, fevers, frequent illness/URI, unintentional wt. loss, changes in appetite, difficulty swallowing, she has a cough that is productive in the AM for a small amount of thick yellowish sputum, never had hemoptysis, no pleuritic chest pain or pain with inspiration, progressive activity intolerance, nausea, vomiting, changes in bowel or bladder habits, no new pain to report, her LLE is feeling a bit better with treatment. Review of Systems 10 point ROS as stated in HPI Past Medical History Past Medical History: Heart Failure, COPD Additional Past Medical History / Comment(s): 06-06-15 ADMITTED TO [facility] WITH COPD /CHF, OTHER HX HAND TREMORS(OCC). 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 Smoking Status: Former smoker Past Alcohol Use History: Daily Additional Past Alcohol Use History / Comment(s): pt states she hasnt smoked in 3 years. Past Drug Use History: None Reported - Past Family History Mother Family Medical History: Congestive Heart Failure (CHF), Coronary Artery Disease (CAD), Hyperlipidemia, Hypertension Additional Family Medical History / Comment(s): CABG Father Family Medical History: Cancer, Myocardial Infarction (NH) Medications and Allergies Home Medications Medication Instructions Recorded Confirmed Type Furosemide [Lasix] 40 mg PO DAILY #30 tablet 06/11/15 12/29/17 Rx Budesonide [Pulmicort] 0.5 mg INHALATION RT-BID 12/29/17 12/29/17 History Ipratropium-Albuterol Nebulize 3 ml IH RT-TID 12/29/17 12/29/17 History [Duoneb 0.5 mg-3 mg/3 ml Soln] predniSONE 10 mg PO DIRECTED #30 tab 01/03/18 Rx predniSONE 10 mg PO DAILY #0 01/03/18 12/29/17 Rx Allergies Allergy/AdvReac Type Severity Reaction Status Date / Time Penicillins Allergy Unknown Verified 12/29/17 16:51 strawberry Allergy Unknown Verified 12/29/17 16:51 Physical Exam Vitals: Vital Signs Temp Pulse Pulse Resp BP Pulse Ox 01/03/18 15:12 94 18 01/03/18 15:05 88 01/03/18 15:00 97 F L 91 18 146/71 93 L 01/03/18 14:55 92 01/03/18 11:50 88 01/03/18 11:34 88 01/03/18 08:39 92 01/03/18 08:27 88 01/03/18 08:26 88 01/03/18 08:18 88 93 L 01/03/18 08:00 94 18 01/03/18 07:00 97.5 F L 94 18 156/75 93 L 01/02/18 21:57 97.3 F L 108 H 20 116/72 94 L 01/02/18 21:29 88 01/02/18 21:19 88 01/02/18 21:17 84 01/02/18 21:08 80 01/02/18 16:56 82 01/02/18 16:40 82 Intake and Output 01/03/18 01/03/18 01/03/18 06:59 14:59 22:59 Intake Total 520 Balance 520 Intake: Oral 520 Other: Voiding Method Bedside Commode Bedside Commode Bedside Commode # Voids 1 Weight 78.5 kg Patient Weight 01/04/18 06:59 Weight 78.5 kg - Constitutional General appearance: cooperative, mild distress, obese - EENT scant thrush on tongue Eyes: EOMI, PERRLA, normal appearance - Neck Neck: no lymphadenopathy - Respiratory Respiratory: bilateral: diminished, rhonchi (scattered), prolonged inspiration - Cardiovascular Rhythm: regular Heart sounds: normal: S1, S2 leg Peripheral Edema: right: 1+, bilateral: 2+ (wrapped in marilynn bandage) - Gastrointestinal General gastrointestinal: no absent bowel sounds, no decreased bowel sounds, no distended, no hepatomegaly, no hyperactive bowel sounds, normal bowel sounds, no organomegaly, no rigid, no scaphoid, soft, no splenomegaly, no tenderness, no umbilical hernia, no ventral hernia - Integumentary ayo complexion - Neurologic Neurologic: CNII-XII intact - Musculoskeletal Musculoskeletal: generalized weakness - Psychiatric Psychiatric: A&O x's 3, appropriate affect, intact judgment & insight Left breast mass at 12 O'clock/areolar, smooth consistency, no visible skin changes Results CBC & Chem 7: 01/03/18 06:46 01/03/18 06:46 Labs: Abnormal Lab Results - Last 24 Hours (Table) 01/02/18 01/02/18 01/03/18 Range/Units 17:05 21:07 06:46 Hgb (11.4-16.0) gm/dL MCHC (31.0-37.0) g/dL Neutrophils # (1.3-7.7) k/uL Lymphocytes # (1.0-4.8) k/uL Potassium 5.6 H (3.5-5.1) mmol/L Carbon Dioxide 35 H (22-30) mmol/L BUN 30 H (7-17) mg/dL Glucose 160 H (74-99) mg/dL POC Glucose (mg/dL) 123 H 224 H (75-99) mg/dL Calcium 10.4 H (8.4-10.2) mg/dL 01/03/18 01/03/18 01/03/18 Range/Units 06:46 06:56 11:38 Hgb 11.2 L (11.4-16.0) gm/dL MCHC 29.7 L (31.0-37.0) g/dL Neutrophils # 8.6 H (1.3-7.7) k/uL Lymphocytes # 0.4 L (1.0-4.8) k/uL Potassium (3.5-5.1) mmol/L Carbon Dioxide (22-30) mmol/L BUN (7-17) mg/dL Glucose (74-99) mg/dL POC Glucose (mg/dL) 149 H 170 H (75-99) mg/dL Calcium (8.4-10.2) mg/dL Microbiology - Last 24 Hours (Table) 12/29/17 22:02 Blood Culture - Preliminary Blood No Growth after [address] scan - chest: report reviewed Venous US: report reviewed Assessment and Plan (1) Lung mass Narrative/Plan: Pt is currently refusing biopsy of lung mass. Explained the size of the mass is concerning and pt clarified that she is not interested in biopsy. I discussed case with Dr. Conroy and he recommended the possibility of a PET to evaluate activity of all the concerning areas on CT. I am also going to investigate the possibility of liquid biopsy if pt is not interested in biopsy. If a biomarker is identified it could provide pt with a great alternative to chemotherapy. Will see pt in AM and try to discuss with her Crank Hand and Attending. Current Visit: Yes Status: Acute Priority: High Code(s): R91.8 - OTHER NONSPECIFIC ABNORMAL FINDING OF LUNG FIELD SNOMED Code(s): 252788914 (2) Left breast mass Narrative/Plan: Pt has had this mass for 20+ years and denies any acute changes. No further work up at this time. Agree with ongoing monitoring, clinical breast exams Current Visit: No Status: Chronic Priority: Medium Code(s): N63 - UNSPECIFIED LUMP IN BREAST * DO NOT USE * SNOMED Code(s): 30396904
[2018-01-03 17:17] LABS: Glucose,Whole Blood 173 mg/dL (75-99)
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
[2018-01-03 20:21] LABS: Glucose,Whole Blood 184 mg/dL (75-99)
[2018-01-03] MEDS: LEVOFLOXACIN 750 MG TAB PO SCH (21:12)
[2018-01-03] MEDS: MONTELUKAST 10 MG TAB PO SCH (21:49)
--- NOTE | 2018-01-03 22:54 | PN ---
PROGRESS NOTE DATE OF SERVICE: 01/03/2018. INTERVAL HISTORY: This 72-year-old woman was admitted with COPD exacerbation, also suspected to have right lung cancer. Currently Pulmonary and Hematology/Oncology are evaluating the patient at this time. The patient is currently refusing biopsy and treatment of the lung cancer. Continuing to monitor. See Pulmonary notes for further details. No chest pain, no palpitations. EXAM: Alert and oriented x3. Pulse 91, blood pressure 140/70, respiration 18, temperature 97 degrees, pulse ox 94% on 3 L HEENT: Conjunctivae normal. CARDIOVASCULAR: S1 and S2 muffled. LUNGS: Breath sounds diminished at the bases. Few scattered rhonchi and crackles. ABDOMEN: Soft, nontender. LEGS: Left leg infection, cellulitis present. NERVOUS SYSTEM: No focal deficits. LABS: WBC 9.5, potassium 5.6. ASSESSMENT: 1. Chronic obstructive pulmonary disease acute exacerbation with acute hypoxic respiratory failure, acute on chronic, present on admission. 2. Right lung cancer possibly. 3. Acute bilateral leg cellulitis, left more than the right. 4. Hyperkalemia. 5. No evidence of deep venous thrombosis on the ultrasound. 6. Chronic cor pulmonale. 7. History of chronic hypoxic respiratory failure. 8. History nicotine dependence. 9. Chronic kidney disease stage 3. 10.History of asthma. RECOMMENDATIONS: Recommend to continue current management and symptomatic treatment. Otherwise continue the bronchodilators and continue the antibiotics. Closely follow with Infectious Disease and Pulmonary. Otherwise, Psychiatry has been consulted for evaluation of depression. Continue to monitor. Further recommendations to follow. MMODL / IJN: [id number] /
[2018-01-04] MEDS: IPRATROPIUM-ALBUTEROL 3 ML NEB INHALATION SCH ×7 (00:42→23:53)
[2018-01-04] MEDS: HYDROcodone/APAP 5-325MG 1 EACH TAB PO PRN ×2 (02:57→23:34)
--- NOTE | 2018-01-04 05:00 | PN ---
PROGRESS NOTE DATE OF SERVICE: 01/03/2018 REASON FOR FOLLOWUP: Left leg cellulitis. INTERVAL HISTORY: The patient is afebrile. Breathing comfortably. Denies significant chest pain. Occasional cough. No abdominal pain or any worsening of pain in the left leg area. PHYSICAL EXAMINATION: On examination, blood pressure 146/71 with a pulse of 88, temperature of 97. She is 93% on 3 L nasal cannula. General description is an elderly female up in the chair in no distress. RESPIRATORY SYSTEM: Unlabored breathing with decreased breath sounds, no wheeze. HEART: S1, S2. Regular rate and rhythm. ABDOMEN: Soft, no tenderness. Left leg she has some swelling though redness has improved, no drainage. LABS: Hemoglobin is 11.2 with a white count of 9.5. BUN of 30, creatinine 0.95. DIAGNOSTIC IMPRESSION AND PLAN: Patient with left lower extremity cellulitis. Culture positive for group B strep and MSSA with MSSA positive in the sputum. The patient at this time will continue with cefazolin, however,RN has been advised for proper application of the Arun wrap. Continue with supportive care. MMODL / IJN: [id number] / DILLON
[2018-01-04 07:22] LABS: Glucose,Whole Blood 98 mg/dL (75-99)
[2018-01-04] MEDS: BUDESONIDE 1 MG/2 ML NEBU INHALATION SCH ×2 (07:24→19:25)
[2018-01-04] MEDS: FORMOTEROL FUMARATE 20 MCG/2 ML NEBU INHALATION SCH ×2 (07:24→19:25)
[2018-01-04] MEDS: ceFAZolin IN SWFI 2 GM/20 ML SYRINGE IVP SCH ×3 (08:37→23:34)
[2018-01-04 09:38] LABS: Basophils % (A) 0 %; Eosinophils % (A) 0 %; HCT 37.8 % (34.0-46.0); HGB 10.9 gm/dL (11.4-16.0); Hypochromasia Marked; Lymphocytes # (A) 0.8 k/uL (1.0-4.8); Lymphocytes % (A) 8 %; MCHC 28.7 g/dL (31.0-37.0); MCV 94.2 fL (80.0-100.0); Mean Platelet Volume 7.4; Monocytes # (A) 0.7 k/uL (0-1.0); Monocytes % (A) 7 %; Neutrophils # (A) 9.4 k/uL (1.3-7.7); Neutrophils % (A) 84 %; Platelet Count 207 k/uL (150-450); RBC 4.02 m/uL (3.80-5.40); RDW 15.2 % (11.5-15.5); WBC 11.1 k/uL (3.8-10.6)
[2018-01-04 10:04] LABS: Anion Gap 6 mmol/L; Blood Urea Nitrogen 32 mg/dL (7-17); Calcium 9.7 mg/dL (8.4-10.2); Carbon Dioxide 35 mmol/L (22-30); Chloride 100 mmol/L (98-107); Glucose 127 mg/dL (74-99); Potassium 4.8 mmol/L (3.5-5.1); Sodium 141 mmol/L (137-145)
[2018-01-04] MEDS: predniSONE 20 MG TAB PO SCH (10:07)
[2018-01-04] MEDS: HEPARIN SODIUM,PORCINE 5,000 UNIT/ML 1 ML VIAL SQ SCH ×3 (10:08→23:34)
[2018-01-04] MEDS: PANTOPRAZOLE 40 MG TABLET PO SCH (10:08)
[2018-01-04] MEDS: INSULIN ASPART 100 UNIT/ML 1 ML 10 ML VIAL SQ SCH ×4 (10:10→21:38)
--- NOTE | 2018-01-04 10:27 | P.PN ---
Subjective Progress Note Date: 01/04/18 Principal diagnosis: Acute exacerbation of COPD Patient is seen and examined today on rounds. Patient states she is sure of her refusal to have any biopsy or further workup in regards to the lung mass at this time. Patient states she would like to go home. She was seen by psychiatry yesterday for evaluation of depression please refer to those notes. Upon examination she is resting up in bed on 3-4 L of supplemental oxygen via nasal cannula. The patient utilizes 3 L at all times at home. She continues to have shortness of breath with exertion however states this is her baseline. Continues to have a chronic cough Objective - Vital Signs Vital signs: Vital Signs Temp 97.4 F L 01/04/18 08:34 Pulse 94 01/04/18 08:34 Resp 17 01/04/18 08:34 BP 122/58 01/04/18 08:34 Pulse Ox 95 01/04/18 08:34 Intake & Output 01/03/18 01/04/18 01/04/18 18:59 06:59 18:59 Intake Total 520 340 Balance 520 340 Weight 78.5 kg 78.5 kg Intake: Oral 520 340 Other: Voiding Method Bedside Commode Bedside Commode Bedside Commode # Voids 1 - Exam Gen.: Patient is alert and oriented 3, conversational dyspnea Cardiac vascular: Regular rate and rhythm, S1/S2 Lungs: Diminished breath sounds bilaterally with scattered expiratory wheezing Abdomen: Soft nontender nondistended positive bowel sounds Extremities: 1+ pitting edema RLE, 3+ edema LLE - Labs CBC & Chem 7: 01/04/18 08:26 01/04/18 08:26 Labs: Abnormal Lab Results - Last 24 Hours (Table) 01/03/18 01/03/18 01/03/18 Range/Units 11:38 17:13 20:16 WBC (3.8-10.6) k/uL Hgb (11.4-16.0) gm/dL MCHC (31.0-37.0) g/dL Neutrophils # (1.3-7.7) k/uL Lymphocytes # (1.0-4.8) k/uL Carbon Dioxide (22-30) mmol/L BUN (7-17) mg/dL Glucose (74-99) mg/dL POC Glucose (mg/dL) 170 H 173 H 184 H (75-99) mg/dL 01/04/18 01/04/18 Range/Units 08:26 08:26 WBC 11.1 H (3.8-10.6) k/uL Hgb 10.9 L (11.4-16.0) gm/dL MCHC 28.7 L (31.0-37.0) g/dL Neutrophils # 9.4 H (1.3-7.7) k/uL Lymphocytes # 0.8 L (1.0-4.8) k/uL Carbon Dioxide 35 H (22-30) mmol/L BUN 32 H (7-17) mg/dL Glucose 127 H (74-99) mg/dL POC Glucose (mg/dL) (75-99) mg/dL Microbiology - Last 24 Hours (Table) 12/29/17 22:02 Blood Culture - Preliminary Blood No Growth after 120 hours Assessment and Plan Assessment: Acute on chronic hypoxic respiratory failure Acute exacerbation of COPD Acute exacerbation of severe persistent asthma Right lung mass 4.0 x 4.5 cm Mediastinal lymphadenopathy concerning for metastatic disease Tracheobronchitis Bilateral lower extremity cellulitis Chronic cor pulmonale History of tobacco abuse Obstructive sleep apnea Obesity O2 to maintain saturation greater than or equal to 90% Bronchodilators Pulmicort, Perforomist Singulair Echocardiogram Antibiotics: Levaquin Prednisone Sputum culture and cytology CPAP from home Incentive spirometry and pulmonary hygiene GI and DVT prophylaxis Patient is refusing biposy and treatment for cancer. Consult psychiatry for evaluation of depression completed and they have signed off I performed an examination of the patient and discussed their management with the nurse practitioner. I have reviewed the nurse practitioner's note and agree with the documented findings and plan of care.
[2018-01-04 11:23] LABS: Glucose,Whole Blood 90 mg/dL (75-99)
[2018-01-04] MEDS: MULTIVITAMINS, THERA 1 EACH TAB PO SCH (13:02)
--- NOTE | 2018-01-04 13:07 | PN ---
PROGRESS NOTE DATE OF SERVICE: 01/04/2018 REASON FOR FOLLOWUP: Left leg cellulitis. INTERVAL HISTORY: The patient is afebrile. She is breathing comfortably. Denies any significant chest pain. Occasional cough. No abdominal pain. No nausea or vomiting. No diarrhea. PHYSICAL EXAMINATION: On examination, blood pressure 122/58 with a pulse of 94, temperature 97.4. She is 95% on room air. General description is an elderly female up in the chair in no distress. RESPIRATORY SYSTEM: Unlabored breathing, decreased breath sounds at bases, no wheeze. HEART: S1, S2. Regular rate and rhythm. ABDOMEN: Soft, no tenderness. Left leg swelling and redness has decreased, no drainage. LABS: White count 11.1, BUN of 32, creatinine 1.0. DIAGNOSTIC IMPRESSION AND PLAN: Patient with a left leg venous status ulcer and cellulitis. Culture positive for MSSA and streptococcus. Plan is to continue patient on cefazolin and switch over to Keflex on discharge. Continue supportive care. MMODL / IJN: [id number] /
[2018-01-04 17:29] LABS: Glucose,Whole Blood 171 mg/dL (75-99)
[2018-01-04 20:28] LABS: Glucose,Whole Blood 192 mg/dL (75-99)
[2018-01-04] MEDS: MONTELUKAST 10 MG TAB PO SCH (21:38)
[2018-01-05] MEDS: IPRATROPIUM-ALBUTEROL 3 ML NEB INHALATION SCH ×2 (03:57→09:26)
[2018-01-05 07:01] LABS: Glucose,Whole Blood 83 mg/dL (75-99)
[2018-01-05] MEDS: ceFAZolin IN SWFI 2 GM/20 ML SYRINGE IVP SCH (07:43)
[2018-01-05 08:27] VITALS: BP 160/71; RESP 16; TEMP 97.1
[2018-01-05] MEDS: HEPARIN SODIUM,PORCINE 5,000 UNIT/ML 1 ML VIAL SQ SCH (09:10)
[2018-01-05] MEDS: predniSONE 20 MG TAB PO SCH (09:11)
[2018-01-05] MEDS: PANTOPRAZOLE 40 MG TABLET PO SCH (09:11)
[2018-01-05] MEDS: INSULIN ASPART 100 UNIT/ML 1 ML 10 ML VIAL SQ SCH (09:18)
[2018-01-05] MEDS: FORMOTEROL FUMARATE 20 MCG/2 ML NEBU INHALATION SCH (09:26)
[2018-01-05] MEDS: BUDESONIDE 1 MG/2 ML NEBU INHALATION SCH (09:26)
--- NOTE | 2018-01-05 10:12 | P.PN ---
Subjective Progress Note Date: 01/05/18 Principal diagnosis: Acute exacerbation of COPD Patient is seen and examined today on rounds. Patient states that she is frustrated and she was also go home yesterday, and is wondering what the holdup this. We did check with her nurse, they are trying to establish home care where she lives continue other discharge planning, to ensure a safe successful discharge. This was explained patient. Patient states she is sure of her refusal to have any biopsy or further workup in regards to the lung mass at this time. Upon examination she is resting up in bed on 3-4 L of supplemental oxygen via nasal cannula. The patient utilizes 3 L at all times at home. She continues to have shortness of breath with exertion however states this is her baseline. Continues to have a chronic cough, afebrile no further complaints. Objective - Vital Signs Vital signs: Vital Signs Temp 97.1 F L 01/05/18 08:25 Pulse 100 01/05/18 09:59 Resp 16 01/05/18 08:25 BP 160/71 01/05/18 08:25 Pulse Ox 94 L 01/05/18 08:25 Intake & Output 01/04/18 01/05/18 01/05/18 18:59 06:59 18:59 Intake Total 400 300 Balance 400 300 Weight 78.5 kg 78.5 kg Intake: Oral 400 300 Other: Voiding Method Bedside Commode Bedside Commode Bedside Commode # Voids 1 2 - Exam Gen.: Patient is alert and oriented 3, conversational dyspnea Cardiac vascular: Regular rate and rhythm, S1/S2 Lungs: Diminished breath sounds bilaterally with scattered expiratory wheezing Abdomen: Soft nontender nondistended positive bowel sounds Extremities: 1+ pitting edema RLE, 3+ edema LLE - Labs CBC & Chem 7: 01/04/18 08:26 01/04/18 08:26 Labs: Abnormal Lab Results - Last 24 Hours (Table) 01/04/18 01/04/18 01/04/18 Range/Units 08:26 08:26 17:27 WBC 11.1 H (3.8-10.6) k/uL Hgb 10.9 L (11.4-16.0) gm/dL MCHC 28.7 L (31.0-37.0) g/dL Neutrophils # 9.4 H (1.3-7.7) k/uL Lymphocytes # 0.8 L (1.0-4.8) k/uL Carbon Dioxide 35 H (22-30) mmol/L BUN 32 H (7-17) mg/dL Glucose 127 H (74-99) mg/dL POC Glucose (mg/dL) 171 H (75-99) mg/dL 01/04/18 Range/Units 20:26 WBC (3.8-10.6) k/uL Hgb (11.4-16.0) gm/dL MCHC (31.0-37.0) g/dL Neutrophils # (1.3-7.7) k/uL Lymphocytes # (1.0-4.8) k/uL Carbon Dioxide (22-30) mmol/L BUN (7-17) mg/dL Glucose (74-99) mg/dL POC Glucose (mg/dL) 192 H (75-99) mg/dL Microbiology - Last 24 Hours (Table) 12/29/17 23:00 Gram Stain - Final Sputum Sputum Culture - Final Staphylococcus aureus Aspergillus niger Mariah albicans 12/29/17 22:02 Blood Culture - Final Blood No Growth after 144 hours Assessment and Plan Assessment: Acute on chronic hypoxic respiratory failure Acute exacerbation of COPD Acute exacerbation of severe persistent asthma Right lung mass 4.0 x 4.5 cm Mediastinal lymphadenopathy concerning for metastatic disease Tracheobronchitis Bilateral lower extremity cellulitis Chronic cor pulmonale History of tobacco abuse Obstructive sleep apnea Obesity O2 to maintain saturation greater than or equal to 90% Bronchodilators Pulmicort, Perforomist Singulair Echocardiogram Antibiotics: Levaquin Prednisone Sputum culture and cytology CPAP from home Incentive spirometry and pulmonary hygiene GI and DVT prophylaxis Patient is refusing biposy and treatment for cancer. Consult psychiatry for evaluation of depression completed and they have signed off I performed an examination of the patient and discussed their management with the nurse practitioner. I have reviewed the nurse practitioner's note and agree with the documented findings and plan of care.
[2018-01-05 10:25] VITALS: PULSE 80
[2018-01-05 10:34] VITALS: BMI 31.6
--- NOTE | 2018-01-05 13:06 | P.PN ---
Subjective Progress Note Date: 01/05/18 Principal diagnosis: cellulitis, Rt lung mass Pt seen today in follow up, she states her LLE is less painful and less swollen , she is able to ambulate if she weight bears on the ball of the foot, she denies any respiratory symptoms. Objective - Vital Signs Vital signs: Vital Signs Temp 97.1 F L 01/05/18 08:25 Pulse 80 01/05/18 10:18 Resp 16 01/05/18 10:18 BP 160/71 01/05/18 08:25 Pulse Ox 94 L 01/05/18 08:25 Intake & Output 01/04/18 01/05/18 01/05/18 18:59 06:59 18:59 Intake Total 400 300 Balance 400 300 Weight 78.5 kg 78.5 kg 78.5 kg Intake: Oral 400 300 Other: Voiding Method Bedside Commode Bedside Commode Bedside Commode # Voids 1 2 - Exam Pt sitting in chair, NAD, respirations are shallow but no acute distress, feet are swollen and legs are wrapped - Constitutional General appearance: Present: no acute distress, obese - Labs CBC & Chem 7: 01/04/18 08:26 01/04/18 08:26 Labs: Abnormal Lab Results - Last 24 Hours (Table) 01/04/18 01/04/18 Range/Units 17:27 20:26 POC Glucose (mg/dL) 171 H 192 H (75-99) mg/dL Microbiology - Last 24 Hours (Table) 12/29/17 23:00 Gram Stain - Final Sputum Sputum Culture - Final Staphylococcus aureus Aspergillus niger Mariah albicans 12/29/17 22:02 Blood Culture - Final Blood No Growth after 144 hours Assessment and Plan (1) Lung mass Status: Acute Priority: High Code(s): R91.8 - OTHER NONSPECIFIC ABNORMAL FINDING OF LUNG FIELD SNOMED Code(s): 873974972 (2) Left breast mass Status: Chronic Priority: Medium Code(s): N63 - UNSPECIFIED LUMP IN BREAST * DO NOT USE * SNOMED Code(s): 67642564 Plan: Case was discussed with Pulmonary OPERATIONS LOGISTICS ANALYST. I reviewed with the pt the concerning findings on her scans, concern for cancer. Pt does not want a biopsy. We discussed what a PET scan is and what it would tell us about the abnormalities on CT, she was not interested in "another scan". I told her that I had spoke with representatives from an organization that performs "liquid tumor biopsy" on peripheral blood and she states that she does not feel like "running around to a bunch of appointments". We discussed the concern for malignancy and what she would do if it was cancer , she states that she "has to of something". Pt took office contact info and will call us if she is interested in pursuing liquid biopsy.
--- NOTE | 2018-01-10 09:34 | CDI ---
Last Revision, October 2017 Documentation Clarification Form Date: 01/10/2018 9:24:00 AM From: Angeles Obrien Rupinder Chase, [employer]phalt Raker between 8:30 am & 5 pm Chastity Admit Date: 12/29/2017 4:54:00 PM Patient Name: Milagro Amaro Visit Number: [id number] Discharge Date: 01/05/18 ATTENTION: The Clinical Documentation Specialists (CDI) and [facility] Coding Staff appreciate your assistance in clarifying documentation. Please respond to the clarification below the line at the bottom and electronically sign. The CDI & [facility] Coding staff will review the response and follow-up if needed. Please note: Queries are made part of the Legal Health Record. If you have any questions, please contact the author of this message via ITS. Dr. Bean Arellano Patient has history of heart failure. Per 12/30 consult "The patient did have underlying congestive heart failure that is responsible for the swelling in the legs and subsequent cellulitis. She takes Lasix 40 mg/daily at home. She received 20mg IV once on 12/31, home Lasix was on hold. Echocardiogram Results: Left ventricular systolic function is normal with an EF between 55-60%. Chest X Ray: No overt failure. In your professional opinion, can you please clarify the acuity and type of CHF if known? Systolic Heart Failure: Acute Chronic Acute on Chronic Diastolic Heart Failure: Acute Chronic Acute on Chronic Systolic & Diastolic Heart Failure: Acute Chronic Acute on Chronic Heart Failure Unable to Determine Other, please specify Please continue to document in your progress notes and discharge summary in order to capture severity of illness and risk of mortality. Include clinical findings that support your diagnosis. Diastolic Heart Failure: Chronic MTDD
--- NOTE | 2018-01-21 22:27 | P.PN ---
Subjective Progress Note Date: 01/04/18 Principal diagnosis: COPD exacerbation and lung mass Patient is a 72-year-old male with known history of COPD and other multiple medical problems was admitted to the hospital for acute COPD exacerbation. Patient was also found have a breast lump and also suspected lung mass. Otherwise patient is refusing to get biopsy. Currently patient denied any worsening pain or shortness of breath. Pulmonary and oncology is following. No other acute overnight issues. All other review of systems negative except as above Current medications reviewed. Objective - Vital Signs Vital signs: Vital Signs Temp 97.6 F 01/04/18 15:00 Pulse 96 01/04/18 19:48 Resp 18 01/04/18 16:00 BP 168/73 01/04/18 15:00 Pulse Ox 92 L 01/04/18 19:27 Intake & Output 01/04/18 01/04/18 01/05/18 06:59 18:59 06:59 Intake Total 340 400 Balance 340 400 Weight 78.5 kg 78.5 kg Intake: Oral 340 400 Other: Voiding Method Bedside Commode Bedside Commode # Voids 1 1 - Exam PHYSICAL EXAMINATION: Patient is lying in the bed comfortably, no acute distress, awake alert and oriented.. HEENT: Normocephalic. Neck is supple. Pupils reactive. Nostrils clear. Oral cavity is moist. Ears reveal no drainage. Neck reveals no JVD, carotid bruits, or thyromegaly. CHEST EXAMINATION: Trachea is central. Symmetrical expansion. Basilar rhonchi and crackles. Wheezing improved. CARDIAC: Normal S1, S2 with no gallops. No murmurs ABDOMEN: Soft. Bowel sounds normal. No organomegaly. No abdominal bruits. Extremities: reveal no edema. No clubbing or cyanosis Neurologically awake, alert, oriented x3 with well-coordinated movements. No focal deficits noted Skin: No rash or skin lesions. Psychiatric: Coperative. Nonsuicidal Musculoskeletal: No joint swelling or deformity. Normal range of motion. - Labs CBC & Chem 7: 01/04/18 08:26 01/04/18 08:26 Labs: Abnormal Lab Results - Last 24 Hours (Table) 01/04/18 01/04/18 01/04/18 Range/Units 08:26 08:26 17:27 WBC 11.1 H (3.8-10.6) k/uL Hgb 10.9 L (11.4-16.0) gm/dL MCHC 28.7 L (31.0-37.0) g/dL Neutrophils # 9.4 H (1.3-7.7) k/uL Lymphocytes # 0.8 L (1.0-4.8) k/uL Carbon Dioxide 35 H (22-30) mmol/L BUN 32 H (7-17) mg/dL Glucose 127 H (74-99) mg/dL POC Glucose (mg/dL) 171 H (75-99) mg/dL 01/04/18 Range/Units 20:26 WBC (3.8-10.6) k/uL Hgb (11.4-16.0) gm/dL MCHC (31.0-37.0) g/dL Neutrophils # (1.3-7.7) k/uL Lymphocytes # (1.0-4.8) k/uL Carbon Dioxide (22-30) mmol/L BUN (7-17) mg/dL Glucose (74-99) mg/dL POC Glucose (mg/dL) 192 H (75-99) mg/dL Microbiology - Last 24 Hours (Table) 12/29/17 22:02 Blood Culture - Preliminary Blood No Growth after 120 hours Assessment and Plan Assessment: Acute COPD exacerbation Acute on chronic hypoxic respiratory failure Possible right lung cancer Bilateral lower extremity cellulitis left more than right neck line Hyperkalemia Chronic cor pulmonale CK D stage III Plan: Patient be continued on IV steroids and breathing treatments and antibiotics. Pulmonary and oncology is following. Patient is refusing to get lung biopsy. We'll continue the current management and further recommendations based on the clinical course. Prognosis is guarded. Time with Patient: Greater than 30
--- NOTE | 2018-01-21 22:29 | P.DS ---
Providers Date of admission: 12/29/17 16:54 Expected date of discharge: 01/05/18 Attending physician: Bean Arellano Consults: 12/29/17 17:27 Consult Physician Routine Consulting Provider: Kelly Rosa Consult Reason/Comments: cellulitis Do you want consulting provider notified?: Yes 12/30/17 10:04 Consult Physician Routine Consulting Provider: Faraz Samayoa Consult Reason/Comments: Known to physician, COPD exacerbation Do you want consulting provider notified?: Yes 01/02/18 14:52 Consult Physician Routine Consulting Provider: Mk Celaya Consult Reason/Comments: lung cancer Do you want consulting provider notified?: Yes 01/02/18 14:53 Consult Physician Routine Consulting Provider: Jorge Luis Conroy Consult Reason/Comments: lung cancer Do you want consulting provider notified?: Yes 01/03/18 10:50 Consult Physician Routine Consulting Provider: Veronica Walter Consult Reason/Comments: depression, lung cancer, refusing treatment Do you want consulting provider notified?: Already Contacted Primary care physician: Gabriel Rodriguez Hospital Course: Discharge diagnosis Acute COPD exacerbation Acute on chronic hypoxic respiratory failure Possible right lung cancer Bilateral lower extremity cellulitis left more than right neck line Hyperkalemia Chronic cor pulmonale CK D stage III Hospital course Patient is a 72-year-old male with known history of COPD and other multiple medical problems was admitted to the hospital for acute COPD exacerbation. Patient was also found have a breast lump and also suspected lung mass. Otherwise patient is refusing to get biopsy. Currently patient denied any worsening pain or shortness of breath. Pulmonary and oncology is following. No other acute overnight issues. Patient be continued on IV steroids and breathing treatments and antibiotics. Pulmonary and oncology is following. Patient is refusing to get lung biopsy. We'll continue the current management and further recommendations based on the clinical course. Prognosis is poor. Discharge physical examination was done. Patient will be discharged home with home health care. Patient Condition at Discharge: Fair Plan - Discharge Summary Discharge Rx Participant: Yes New Discharge Prescriptions: New Cephalexin [Keflex] 500 mg PO Q8HR 7 Days #21 cap Continue Furosemide [Lasix] 40 mg PO DAILY #30 tablet Ipratropium-Albuterol Nebulize [Duoneb 0.5 mg-3 mg/3 ml Soln] 3 ml IH RT-TID Budesonide [Pulmicort] 0.5 mg INHALATION RT-BID predniSONE 10 mg PO DAILY #0 No Action predniSONE See Taper PO DIRECTED Discharge Medication List Furosemide [Lasix] 40 mg PO DAILY #30 tablet 06/11/15 [Rx] Budesonide [Pulmicort] 0.5 mg INHALATION RT-BID 12/29/17 [History] Ipratropium-Albuterol Nebulize [Duoneb 0.5 mg-3 mg/3 ml Soln] 3 ml IH RT-TID 06/08 [History] predniSONE 10 mg PO DAILY #0 01/03/18 [Rx] Cephalexin [Keflex] 500 mg PO Q8HR 7 Days #21 cap 01/04/18 [Rx] predniSONE See Taper PO DIRECTED 01/10/18 [History] Follow up Appointment(s)/Referral(s): [facility], Psychiatry [Other] - 1 Week Gabriel Rodriguez MD [Primary Care Provider] - 01/11/18 3:00 pm [facility], [NON-STAFF] - 1 Week Faraz Samayoa MD [STAFF PHYSICIAN] - 01/13/18 2:30 pm Patient Instructions/Handouts: Cephalexin (By mouth), Prednisone (By mouth), How to Use an Incentive Spirometer (DC), Cellulitis (DC), COPD (Chronic Obstructive Pulmonary Disease) (DC) Activity/Diet/Wound Care/Special Instructions: [facility] - Will deliver to bedside - [phone] IS q1H x 10 [place] Discharge Disposition: HOME WITH HOME HEALTH SERVICES
== END 2018-01-05 11:53 | disposition home health service (06) | DRG 190 ==
LOC: EC 15:57 → 5MS5E 16:54
PROVIDERS: ADMIT Hospitalist; ATTEND Hospitalist
DX: J44.0 Chronic obstructive pulmonary disease with (acute) lower respiratory infection (principal); J96.21 Acute and chronic respiratory failure with hypoxia; E87.5 Hyperkalemia; I27.81 Cor pulmonale (chronic); J45.51 Severe persistent asthma with (acute) exacerbation; I50.32 Chronic diastolic (congestive) heart failure; L03.115 Cellulitis of right lower limb; L03.116 Cellulitis of left lower limb; C34.31 Malignant neoplasm of lower lobe, right bronchus or lung; Z99.81 Dependence on supplemental oxygen; J20.9 Acute bronchitis, unspecified; N18.3 Chronic kidney disease, stage 3 (moderate); I13.10 Hypertensive heart and chronic kidney disease without heart failure, with stage 1 through stage 4 chronic kidney disease, or unspecified chronic kidney disease; N63.0 Unspecified lump in unspecified breast; J44.1 Chronic obstructive pulmonary disease with (acute) exacerbation; B95.1 Streptococcus, group B, as the cause of diseases classified elsewhere; R59.0 Localized enlarged lymph nodes; F32.9 Major depressive disorder, single episode, unspecified; G47.33 Obstructive sleep apnea (adult) (pediatric); R25.1 Tremor, unspecified; E66.9 Obesity, unspecified; Z68.31 Body mass index [BMI] 31.0-31.9, adult; L30.9 Dermatitis, unspecified; Z87.891 Personal history of nicotine dependence; Z88.0 Allergy status to penicillin; Z91.018 Allergy to other foods; Z91.19 Patient's noncompliance with other medical treatment and regimen
CPT/HCPCS: 71045; 71260; 80048; 80053; 83036; 85025; 87040; 87070; 87077; 87086; 87186; 87205; 87502; 93306; 94640; 94760; 96365; 99285

== ENCOUNTER 2018-01-10 01:57 | Inpatient (IN) | payer MEDICARE, BC ==
--- NOTE | 2018-01-10 02:15 | ED ---
SOB HPI - General Chief Complaint: Shortness of Breath Stated Complaint: Respiratory distress Time Seen by Provider: 01/10/18 02:13 Source: EMS Mode of arrival: EMS Limitations: physical limitation (Patient is intubated) - History of Present Illness Initial Comments: This patient is 72-year-old woman with history of underlying COPD and reported to have breast cancer. She was brought to the outside hospital [facility], where she was apparently in respiratory failure, and they intubated the patient. She reportedly has had previous treatment here and was transferred for hospitalization here. The patient is intubated and not able to give any history. The transfer paperwork is reviewed. MD Complaint: shortness of breath -: hour(s) Severity: severe Improves With: nothing Worsens With: nothing Known History Of: COPD Treatments Prior to Arrival: oxygen, intubation - Related Data Home Medications Medication Instructions Recorded Confirmed Budesonide [Pulmicort] 0.5 mg INHALATION RT-BID 12/29/17 01/10/18 Ipratropium-Albuterol Nebulize 3 ml IH RT-TID 12/29/17 01/10/18 [Duoneb 0.5 mg-3 mg/3 ml Soln] predniSONE See Taper PO DIRECTED 01/10/18 01/10/18 Previous Rx's Medication Instructions Recorded Furosemide [Lasix] 40 mg PO DAILY #30 tablet 06/11/15 predniSONE 10 mg PO DAILY #0 01/03/18 Cephalexin [Keflex] 500 mg PO Q8HR 7 Days #21 cap 01/04/18 Allergies Allergy/AdvReac Type Severity Reaction Status Date / Time Penicillins Allergy Unknown Verified 01/10/18 07:47 strawberry Allergy Unknown Verified 01/10/18 07:47 Review of Systems ROS Statement: Those systems with pertinent positive or pertinent negative responses have been documented in the HPI. ROS Other: All systems not noted in ROS Statement are negative. Limitations: ROS unobtainable due to patients medical condition (Patient intubated) Past Medical History Past Medical History: Heart Failure, COPD Additional Past Medical History / Comment(s): 06-06-15 ADMITTED TO [facility] WITH COPD /CHF, OTHER HX HAND TREMORS(OCC). 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) Past Anesthesia/Blood Transfusion Reactions: No Reported Reaction Past Psychological History: No Psychological Hx Reported Smoking Status: Former smoker Past Alcohol Use History: Daily Past Drug Use History: None Reported - Past Family History Mother Family Medical History: Congestive Heart Failure (CHF), Coronary Artery Disease (CAD), Hyperlipidemia, Hypertension Additional Family Medical History / Comment(s): CABG Father Family Medical History: Cancer, Myocardial Infarction ([place]) General Exam Limitations: physical limitation General appearance: other (Patient is intubated and sedated.) Head exam: Present: atraumatic, normocephalic Eye exam: Present: PERRL. Absent: scleral icterus, conjunctival injection ENT exam: Present: other (Orotracheal tube present) Neck exam: Present: normal inspection. Absent: tenderness Respiratory exam: Present: wheezes, rhonchi, other (Patient is intubated. Auscultation reveals there is an expiratory wheeze and a few scattered rhonchi.) Cardiovascular Exam: Present: tachycardia, normal heart sounds. Absent: systolic murmur, diastolic murmur, rubs, gallop GI/Abdominal exam: Present: soft. Absent: distended, tenderness, guarding, mass Extremities exam: Present: normal inspection, normal capillary refill. Absent: pedal edema Back exam: Present: normal inspection Neurological exam: Present: reflexes normal, other (Patient is sedated and intubated unable to cooperate with the neurologic exam) Skin exam: Present: warm, dry, intact, normal color. Absent: rash Course Vital Signs 01/10/18 01/10/18 01/10/18 02:01 02:28 03:01 Temperature 99.9 F H Pulse Rate 107 H 104 H 100 Respiratory 21 Rate Blood Pressure 80/50 112/55 100/56 O2 Sat by Pulse 95 96 97 Oximetry 01/10/18 01/10/18 01/10/18 03:35 04:05 04:35 Temperature Pulse Rate 98 94 92 Respiratory Rate Blood Pressure 99/54 99/56 108/55 O2 Sat by Pulse 96 96 96 Oximetry 01/10/18 01/10/18 01/10/18 05:05 05:35 06:15 Temperature 97.6 F Pulse Rate 88 84 82 Respiratory 24 Rate Blood Pressure 98/52 104/58 108/64 O2 Sat by Pulse 96 95 98 Oximetry Medical Decision Making - Medical Decision Making Patient is 72-year-old woman with history of COPD transferred here from outside hospital for respiratory failure. She arrived intubated. The transfer records are reviewed. The patient does have leukocytosis, but the lactic acid there was negative. Here the flu swab is positive. Given the noted history of cancer the d-dimer is checked, found to be elevated at 3.39 and she had computed tomography scan that does not reveal pulmonary embolism. There does appear to be a pulmonary nodule that is suspicious for metastatic disease. Patient admitted. Case discussed with Dr. Morris, for intensive care management, his recommendations incorporated. The patient is in critical condition with very grave nosis. - Lab Data Result diagrams: 01/18/18 04:23 01/18/18 16:20 Lab Results 01/10/18 01/10/18 01/10/18 Range/Units 02:08 02:08 02:08 WBC 25.6 H* (3.8-10.6) k/uL RBC 4.23 (3.80-5.40) m/uL Hgb 11.8 (11.4-16.0) gm/dL Hct 38.9 (34.0-46.0) % MCV 92.0 (80.0-100.0) fL MCH 28.0 (25.0-35.0) pg MCHC 30.4 L (31.0-37.0) g/dL RDW 15.4 (11.5-15.5) % Plt Count 179 (150-450) k/uL Neutrophils % (Manual) 91 % Band Neutrophils % 8 % Monocytes % (Manual) 1 % Neutrophils # (Manual) 25.30 H (1.3-7.7) k/uL Monocytes # (Manual) 0.26 (0-1.0) k/uL Nucleated RBCs 0 (0-0) /100 WBC Manual Slide Review Performed Hypochromasia Marked PT (9.0-12.0) sec INR (<1.2) APTT (22.0-30.0) sec D-Dimer (<0.60) mg/L FEU Sample Site ABG pH (7.35-7.45) ABG pCO2 (35-45) mmHg ABG pO2 (83-108) mmHg ABG HCO3 (21-25) mmol/L ABG Total CO2 (19-24) mmol/L ABG O2 Saturation (94-97) % ABG Base Excess mmol/L Ari Test FiO2 % Sodium (137-145) mmol/L Potassium (3.5-5.1) mmol/L Chloride (98-107) mmol/L Carbon Dioxide (22-30) mmol/L Anion Gap mmol/L BUN (7-17) mg/dL Creatinine (0.52-1.04) mg/dL Est GFR (MDRD) Af Amer (>60 ml/min/1.73 sqM) Est GFR (MDRD) Non-Af (>60 ml/min/1.73 sqM) Glucose (74-99) mg/dL Calcium (8.4-10.2) mg/dL Magnesium (1.6-2.3) mg/dL Total Bilirubin (0.2-1.3) mg/dL AST (14-36) U/L ALT (9-52) U/L Alkaline Phosphatase (38-126) U/L Total Creatine Kinase (30-135) U/L CK-MB (CK-2) (0.0-2.4) ng/mL CK-MB (CK-2) Rel Index Troponin I (0.000-0.034) ng/mL NT-Pro-B Natriuret Pep 3210 pg/mL Total Protein (6.3-8.2) g/dL Albumin (3.5-5.0) g/dL Urine Color Yellow Urine Appearance Clear (Clear) Urine pH 5.5 (5.0-8.0) Ur Specific [place] 1.014 (1.001-1.035) Urine Protein Trace H (Negative) Urine Glucose (UA) Negative (Negative) Urine Ketones Negative (Negative) Urine Blood Negative (Negative) Urine Nitrite Negative (Negative) Urine Bilirubin Negative (Negative) Urine Urobilinogen <2.0 (<2.0) mg/dL Ur Leukocyte Esterase Negative (Negative) Influenza Type A RNA (Not Detectd) Influenza Type B (PCR) (Not Detectd) 01/10/18 01/10/18 01/10/18 Range/Units 02:08 02:22 02:50 WBC (3.8-10.6) k/uL RBC (3.80-5.40) m/uL Hgb (11.4-16.0) gm/dL Hct (34.0-46.0) % MCV (80.0-100.0) fL MCH (25.0-35.0) pg MCHC (31.0-37.0) g/dL RDW (11.5-15.5) % Plt Count (150-450) k/uL Neutrophils % (Manual) % Band Neutrophils % % Monocytes % (Manual) % Neutrophils # (Manual) (1.3-7.7) k/uL Monocytes # (Manual) (0-1.0) k/uL Nucleated RBCs (0-0) /100 WBC Manual Slide Review Hypochromasia PT (9.0-12.0) sec INR (<1.2) APTT (22.0-30.0) sec D-Dimer (<0.60) mg/L FEU Sample Site rbrac ABG pH 7.16 L* (7.35-7.45) ABG pCO2 78 H* (35-45) mmHg ABG pO2 348 H (83-108) mmHg ABG HCO3 28 H (21-25) mmol/L ABG Total CO2 30 H (19-24) mmol/L ABG O2 Saturation 99.1 H (94-97) % ABG Base Excess -0.6 mmol/L Ari Test Yes FiO2 100 % Sodium (137-145) mmol/L Potassium (3.5-5.1) mmol/L Chloride (98-107) mmol/L Carbon Dioxide (22-30) mmol/L Anion Gap mmol/L BUN (7-17) mg/dL Creatinine (0.52-1.04) mg/dL Est GFR (MDRD) Af Amer (>60 ml/min/1.73 sqM) Est GFR (MDRD) Non-Af (>60 ml/min/1.73 sqM) Glucose (74-99) mg/dL Calcium (8.4-10.2) mg/dL Magnesium (1.6-2.3) mg/dL Total Bilirubin (0.2-1.3) mg/dL AST (14-36) U/L ALT (9-52) U/L Alkaline Phosphatase (38-126) U/L Total Creatine Kinase 183 H (30-135) U/L CK-MB (CK-2) 1.9 (0.0-2.4) ng/mL CK-MB (CK-2) Rel Index 1.0 Troponin I 0.173 H* (0.000-0.034) ng/mL NT-Pro-B Natriuret Pep pg/mL Total Protein (6.3-8.2) g/dL Albumin (3.5-5.0) g/dL Urine Color Urine Appearance (Clear) Urine pH (5.0-8.0) Ur Specific [place] (1.001-1.035) Urine Protein (Negative) Urine Glucose (UA) (Negative) Urine Ketones (Negative) Urine Blood (Negative) Urine Nitrite (Negative) Urine Bilirubin (Negative) Urine Urobilinogen (<2.0) mg/dL Ur Leukocyte Esterase (Negative) Influenza Type A RNA Detected H (Not Detectd) Influenza Type B (PCR) Not Detected (Not Detectd) 01/10/18 01/10/18 Range/Units 02:50 04:05 WBC (3.8-10.6) k/uL RBC (3.80-5.40) m/uL Hgb (11.4-16.0) gm/dL Hct (34.0-46.0) % MCV (80.0-100.0) fL MCH (25.0-35.0) pg MCHC (31.0-37.0) g/dL RDW (11.5-15.5) % Plt Count (150-450) k/uL Neutrophils % (Manual) % Band Neutrophils % % Monocytes % (Manual) % Neutrophils # (Manual) (1.3-7.7) k/uL Monocytes # (Manual) (0-1.0) k/uL Nucleated RBCs (0-0) /100 WBC Manual Slide Review Hypochromasia PT 9.7 (9.0-12.0) sec INR 1.0 (<1.2) APTT 22.6 (22.0-30.0) sec D-Dimer 3.39 H (<0.60) mg/L FEU Sample Site ABG pH (7.35-7.45) ABG pCO2 (35-45) mmHg ABG pO2 (83-108) mmHg ABG HCO3 (21-25) mmol/L ABG Total CO2 (19-24) mmol/L ABG O2 Saturation (94-97) % ABG Base Excess mmol/L Ari Test FiO2 % Sodium 140 (137-145) mmol/L Potassium 5.0 (3.5-5.1) mmol/L Chloride 107 (98-107) mmol/L Carbon Dioxide 26 (22-30) mmol/L Anion Gap 7 mmol/L BUN 21 H (7-17) mg/dL Creatinine 1.40 H (0.52-1.04) mg/dL Est GFR (MDRD) Af Amer 45 (>60 ml/min/1.73 sqM) Est GFR (MDRD) Non-Af 37 (>60 ml/min/1.73 sqM) Glucose 150 H (74-99) mg/dL Calcium 7.8 L (8.4-10.2) mg/dL Magnesium 1.8 (1.6-2.3) mg/dL Total Bilirubin 0.6 (0.2-1.3) mg/dL AST 47 H (14-36) U/L ALT 39 (9-52) U/L Alkaline Phosphatase 92 (38-126) U/L Total Creatine Kinase (30-135) U/L CK-MB (CK-2) (0.0-2.4) ng/mL CK-MB (CK-2) Rel Index Troponin I (0.000-0.034) ng/mL NT-Pro-B Natriuret Pep pg/mL Total Protein 5.6 L (6.3-8.2) g/dL Albumin 2.8 L (3.5-5.0) g/dL Urine Color Urine Appearance (Clear) Urine pH (5.0-8.0) Ur Specific [place] (1.001-1.035) Urine Protein (Negative) Urine Glucose (UA) (Negative) Urine Ketones (Negative) Urine Blood (Negative) Urine Nitrite (Negative) Urine Bilirubin (Negative) Urine Urobilinogen (<2.0) mg/dL Ur Leukocyte Esterase (Negative) Influenza Type A RNA (Not Detectd) Influenza Type B (PCR) (Not Detectd) - EKG Data -: EKG Interpreted by Sc EKG shows normal: sinus rhythm, axis (Normal), intervals (Normal), QRS complexes (Low-voltage QRS complexes), ST-T waves (Normal) Rate: tachycardia (Rate approximately 107 bpm) Critical Care Time Critical Care Time: Yes (40 minutes) Disposition Clinical Impression: Acute exacerbation of chronic obstructive airways disease, Congestive heart failure, Left leg cellulitis, Influenza, Respiratory failure Disposition: ADMITTED IP TO THIS HOSP Condition: Critical
[2018-01-10 02:24] LABS: Appearance,Urine Clear (Clear); Bilirubin,Urine Negative (Negative); Blood,Urine Negative (Negative); Color,Urine Yellow; Glucose,Urine (UA) Negative (Negative); Ketones,Urine Negative (Negative); Leukocyte Esterase,Urine Negative (Negative); Nitrite,Urine Negative (Negative); PH, Urine 5.5 (5.0-8.0); Protein,Urine Trace (Negative); Specific Gravity,Urine 1.014 (1.001-1.035); Urobilinogen,Urine <2.0 mg/dL (<2.0)
[2018-01-10 02:26] LABS: ABG Base Excess -0.6 mmol/L; ABG HCO3 28 mmol/L (21-25); ABG Oxygen Saturation 99.1 % (94-97); ABG PO2 348 mmHg (83-108); ABG TCO2 30 mmol/L (19-24)
[2018-01-10 02:29] LABS: HCT 38.9 % (34.0-46.0); HGB 11.8 gm/dL (11.4-16.0); Hypochromasia Marked; MCHC 30.4 g/dL (31.0-37.0); Mean Platelet Volume 9.6; Platelet Count 179 k/uL (150-450); RBC 4.23 m/uL (3.80-5.40); RDW 15.4 % (11.5-15.5)
[2018-01-10 02:38] LABS: ABG PH 7.16 (7.35-7.45)
[2018-01-10 02:39] LABS: ABG PCO2 78 mmHg (35-45)
[2018-01-10 02:46] LABS: WBC 25.6 k/uL (3.8-10.6)
--- NOTE | 2018-01-10 02:51 | XR ---
EXAMINATION TYPE: XR tibia fibula LT DATE OF EXAM: 01/10/2018 COMPARISON: NONE HISTORY: Leg swelling and redness TECHNIQUE: 4 views FINDINGS: I see no fracture nor dislocation. Tibia and fibula appear intact. There is some soft tissu e swelling around the lower leg. I see no focal bone destruction. IMPRESSION: Soft tissue swelling. No fracture.
[2018-01-10] MEDS ORDERED: OSELTAMIVIR 75 MG CAP PO STA (03:02)
[2018-01-10 03:10] LABS: Band Neutrophils % 8 %; Monocytes # (M) 0.26 k/uL (0-1.0); Neutrophils % (M) 91 %; Nucleated Red Blood Cells 0 /100 WBC (0-0); Total Cells Counted 200
[2018-01-10 03:18] LABS: Albumin 2.8 g/dL (3.5-5.0); Calcium 7.8 mg/dL (8.4-10.2); Magnesium 1.8 mg/dL (1.6-2.3); Total Bilirubin 0.6 mg/dL (0.2-1.3); Total Protein 5.6 g/dL (6.3-8.2)
[2018-01-10 03:35] LABS: Creatine Kinase MB 1.9 ng/mL (0.0-2.4)
[2018-01-10 03:36] LABS: Troponin I 0.173 ng/mL (0.000-0.034)
[2018-01-10] MEDS: NOREPINEPHRIN 4 MG-0.9% NS PMX 4 MG/250 ML ML IV ONE ×2 (03:36→06:48)
[2018-01-10 04:26] LABS: D-Dimer 3.39 mg/L FEU (<0.60)
[2018-01-10 04:30] LABS: Partial Thromboplastin Time 22.6 sec (22.0-30.0); Prothrombin Time 9.7 sec (9.0-12.0)
[2018-01-10] MEDS ORDERED: RX INFO: IV CONTRAST WAS GIVEN 1 EACH MISC MISCELLANE PRN (04:41)
[2018-01-10] MEDS ORDERED: LORazepam 2 MG/ML INJ IV STA ×2 (04:53)
[2018-01-10] MEDS ORDERED: ARTIFICIAL TEARS OINTMENT 3.5 GM TUBE BOTH EYES PRN (05:31)
[2018-01-10] MEDS ORDERED: ACETAMINOPHEN SUPPOSITORY 650 MG SUPP RECTAL PRN (05:31)
[2018-01-10] MEDS ORDERED: NALOXONE 0.4 MG/ML 1 ML VIAL IV PRN (05:31)
--- NOTE | 2018-01-10 05:38 | CT ---
EXAM: CT Angiography Chest With Intravenous Contrast CLINICAL HISTORY: ITS.REASON CT Reason: PE protocol TECHNIQUE: Axial computed tomographic angiography images of the chest with intravenous contrast using pulmonary embolism protocol. DLP is 72.8 mGy- cm. This CT exam was performed using one or more of the following dose reduction techniques: automated exposure control, adjustment of the mA and/or kV according to patient size, and/or use of iterative reconstruction technique. MIP reconstructed images were created and reviewed. COMPARISON: CT dated 12/30/2017. FINDINGS: Pulmonary arteries: Unremarkable. No evidence of pulmonary embolism. Aorta: Irregular soft plaque throughout the aorta without significant stenosis. No thoracic aortic aneurysm. Lungs: Unchanged 14 mm solid pulmonary nodule in the left lung base. Reidentified 4 cm spiculated mass in the right lower lobe. There is somewhat increased consolidation inferior to this. Pleural space: Unremarkable. No significant effusion. No pneumothorax. Heart: Mild coronary artery calcification. No significant pericardial effusion. No evidence of RV dysfunction. Bones/joints: No acute fracture. No dislocation. Soft tissues: 2 cm left breast mass. Not included on the prior exam. Lymph nodes: Unchanged subcarinal and right hilar lymphadenopathy. Gallbladder and bile ducts: Unchanged 2.4 cm left adrenal nodule measuring 10 Hounsfield units. The lithiasis within a distended gallbladder. Adrenals: Unchanged 2.7 cm right adrenal nodule measuring 11 Hounsfield units. Tubes, lines and devices: Endotracheal tube in the trachea. Gastric tube coiled within stomach. IMPRESSION: No evidence of pulmonary embolus and. Reidentified right lower lobe mass as well as right hilar mediastinal lymphadenopathy suspicious for deisy metastases. Increased airspace opacity adjacent to the right lower lobe mass may represent atelectasis, tumor spread, pneumonia, or treatment-related change. Newly included 2 cm nodule in the left breast. Further characterization with mammography recommended. Unchanged bilateral adrenal nodules are favored to represent adenomas. Unchanged 14 mm nonspecific solid pulmonary nodule in the left lung base.
[2018-01-10 06:15] LABS: Glucose,Whole Blood 167 mg/dL (75-99)
[2018-01-10] MEDS: SODIUM CHLORIDE 0.9% 1,000 ML IV SCH ×2 (06:15→16:49)
[2018-01-10] MEDS: methylPREDNISolone SOD SUCCI 125 MG/2 ML VIAL IV SCH ×3 (06:50→16:50)
[2018-01-10] MEDS ORDERED: INSULIN ASPART 100 UNIT/ML 1 ML 10 ML VIAL SQ SCH (07:30)
[2018-01-10] MEDS: HEPARIN SODIUM,PORCINE 5,000 UNIT/ML 1 ML VIAL SQ SCH ×2 (08:00→20:53)
[2018-01-10 08:21] LABS: ABG HCO3 25 mmol/L (21-25); ABG PCO2 49 mmHg (35-45); ABG PH 7.32 (7.35-7.45); ABG PO2 80 mmHg (83-108); ABG TCO2 27 mmol/L (19-24)
[2018-01-10] MEDS: IPRATROPIUM-ALBUTEROL 3 ML NEB INHALATION PRN ×3 (08:23→20:11)
[2018-01-10] MEDS: BUDESONIDE 0.5 MG/2 ML NEBU INHALATION SCH ×2 (08:23→20:11)
[2018-01-10] MEDS ORDERED: LEVOFLOXACIN 750MG-D5W PMX 750 MG in DEXTROSE/WATER 1 150ML.BAG IVPB SCH (09:00)
[2018-01-10] MEDS ORDERED: FUROSEMIDE 40 MG TAB PO SCH (09:00)
[2018-01-10] MEDS ORDERED: FAMOTIDINE 20 MG/2 ML VIAL IV SCH (09:00)
[2018-01-10] MEDS ORDERED: OSELTAMIVIR 75 MG CAP PO SCH (09:00)
--- NOTE | 2018-01-10 12:17 | P.HPIM ---
History of Present Illness 72-year-old female was transferred from [facility] for respiratory failure patient was apparently intubated there patient appears to have COPD history patient is found to be in hypercapnic respiratory failure and positive influenza a. Patient was started on Tamiflu as well as levofloxacin CAT scan of the chest was opted because of elevated d-dimer patient's kidney function is not really GERD and patient will be continued on IV fluids IV Lasix will be discontinued and not see any evidence of congestive heart failure. Patient is also on norepinephrine. Patient is pretty much septic secondary to influenza infection was in respiratory failure secondary to influenza infection and hypercapnic respiratory failure secondary to COPD exacerbation. Patient's previous ejection fraction is essentially within normal limits Review of Systems Unable to obtain at this time Past Medical History Past Medical History: Heart Failure, COPD Additional Past Medical History / Comment(s): 06-06-15 ADMITTED TO [facility] WITH COPD /CHF, OTHER HX HAND TREMORS(OCC). 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) Past Anesthesia/Blood Transfusion Reactions: No Reported Reaction Past Psychological History: No Psychological Hx Reported Smoking Status: Former smoker Past Alcohol Use History: Daily Past Drug Use History: None Reported - Past Family History Mother Family Medical History: Congestive Heart Failure (CHF), Coronary Artery Disease (CAD), Hyperlipidemia, Hypertension Additional Family Medical History / Comment(s): CABG Father Family Medical History: Cancer, Myocardial Infarction ([place]) Medications and Allergies Home Medications Medication Instructions Recorded Confirmed Type Furosemide [Lasix] 40 mg PO DAILY #30 tablet 06/11/15 01/10/18 Rx Budesonide [Pulmicort] 0.5 mg INHALATION RT-BID 12/29/17 01/10/18 History Ipratropium-Albuterol Nebulize 3 ml IH RT-TID 12/29/17 01/10/18 History [Duoneb 0.5 mg-3 mg/3 ml Soln] predniSONE 10 mg PO DAILY #0 01/03/18 01/10/18 Rx Cephalexin [Keflex] 500 mg PO Q8HR 7 Days #21 cap 01/04/18 01/10/18 Rx predniSONE See Taper PO DIRECTED 01/10/18 01/10/18 History Allergies Allergy/AdvReac Type Severity Reaction Status Date / Time Penicillins Allergy Unknown Verified 01/10/18 07:47 strawberry Allergy Unknown Verified 01/10/18 07:47 Physical Exam Vitals: Vital Signs Temp Pulse Resp BP Pulse Ox 01/10/18 11:52 84 01/10/18 11:32 92 01/10/18 10:00 87 21 65/45 94 L 01/10/18 09:30 89 23 107/60 97 01/10/18 09:00 85 23 123/58 98 01/10/18 08:40 87 01/10/18 08:30 80 23 136/63 97 01/10/18 08:24 79 01/10/18 08:00 81 23 125/61 94 L 01/10/18 07:30 98.4 F 81 29 H 115/61 96 01/10/18 07:00 81 23 120/62 95 01/10/18 06:15 97.6 F 82 24 108/64 98 01/10/18 05:35 84 104/58 95 01/10/18 05:05 88 98/52 96 01/10/18 04:35 92 108/55 96 01/10/18 04:05 94 99/56 96 01/10/18 03:35 98 99/54 96 01/10/18 03:01 100 100/56 97 01/10/18 02:28 104 H 112/55 96 01/10/18 02:01 99.9 F H 107 H 21 80/50 95 Intake and Output 01/09/18 01/10/18 01/10/18 22:59 06:59 14:59 Intake Total 49.688 600 Output Total 270 Balance 49.688 330 Intake: IV 600 Sodium Chloride 0.9% 1, 600 000 ml @ 150 mls/hr IV . Q6H40M [facility] Rx#:[id number] Intake, IV Titration 49.688 Amount Norepinephrin 4 mg-0.9% 49.688 Ns Pmx 4 mg In 250 ml @ Titrate IV .Q0M ONE Rx#: [id number] Output: Urine 270 Other: Voiding Method Indwelling Catheter Indwelling Catheter # Bowel Movements 0 Weight 89.5 kg 89.5 kg Patient Weight 01/11/18 06:59 Weight 89.5 kg PHYSICAL EXAMINATION: GENERAL: Patient is intubated sedated, on levo fed assist-control ventilation HEENT: Pupils are round and equally reacting to light. EOMI. No scleral icterus. No conjunctival pallor. Normocephalic, atraumatic. No pharyngeal erythema. No thyromegaly. CARDIOVASCULAR: S1 and S2 present. No murmurs, rubs, or gallops. PULMONARY: Diffuse wheezing bilaterally ABDOMEN: Soft, nontender, nondistended, normoactive bowel sounds. No palpable organomegaly. MUSCULOSKELETAL: No joint swelling or deformity. EXTREMITIES: No cyanosis, clubbing, or pedal edema. NEUROLOGICAL: Unable to assess SKIN: No rashes. Results CBC & Chem 7: 01/10/18 02:08 01/10/18 02:50 Labs: Abnormal Lab Results - Last 24 Hours (Table) 01/10/18 01/10/18 01/10/18 Range/Units 02:08 02:08 02:08 WBC 25.6 H* (3.8-10.6) k/uL MCHC 30.4 L (31.0-37.0) g/dL Neutrophils # (Manual) 25.30 H (1.3-7.7) k/uL D-Dimer (<0.60) mg/L FEU ABG pH (7.35-7.45) ABG pCO2 (35-45) mmHg ABG pO2 (83-108) mmHg ABG HCO3 (21-25) mmol/L ABG Total CO2 (19-24) mmol/L ABG O2 Saturation (94-97) % BUN (7-17) mg/dL Creatinine (0.52-1.04) mg/dL Glucose (74-99) mg/dL POC Glucose (mg/dL) (75-99) mg/dL Calcium (8.4-10.2) mg/dL AST (14-36) U/L Total Creatine Kinase (30-135) U/L Troponin I (0.000-0.034) ng/mL Total Protein (6.3-8.2) g/dL Albumin (3.5-5.0) g/dL Urine Protein Trace H (Negative) Influenza Type A RNA Detected H (Not Detectd) 01/10/18 01/10/18 01/10/18 Range/Units 02:22 02:50 02:50 WBC (3.8-10.6) k/uL MCHC (31.0-37.0) g/dL Neutrophils # (Manual) (1.3-7.7) k/uL D-Dimer (<0.60) mg/L FEU ABG pH 7.16 L* (7.35-7.45) ABG pCO2 78 H* (35-45) mmHg ABG pO2 348 H (83-108) mmHg ABG HCO3 28 H (21-25) mmol/L ABG Total CO2 30 H (19-24) mmol/L ABG O2 Saturation 99.1 H (94-97) % BUN 21 H (7-17) mg/dL Creatinine 1.40 H (0.52-1.04) mg/dL Glucose 150 H (74-99) mg/dL POC Glucose (mg/dL) (75-99) mg/dL Calcium 7.8 L (8.4-10.2) mg/dL AST 47 H (14-36) U/L Total Creatine Kinase 183 H (30-135) U/L Troponin I 0.173 H* (0.000-0.034) ng/mL Total Protein 5.6 L (6.3-8.2) g/dL Albumin 2.8 L (3.5-5.0) g/dL Urine Protein (Negative) Influenza Type A RNA (Not Detectd) 01/10/18 01/10/18 01/10/18 Range/Units 04:05 06:13 08:19 WBC (3.8-10.6) k/uL MCHC (31.0-37.0) g/dL Neutrophils # (Manual) (1.3-7.7) k/uL D-Dimer 3.39 H (<0.60) mg/L FEU ABG pH 7.32 L (7.35-7.45) ABG pCO2 49 H (35-45) mmHg ABG pO2 80 L (83-108) mmHg ABG HCO3 (21-25) mmol/L ABG Total CO2 27 H (19-24) mmol/L ABG O2 Saturation (94-97) % BUN (7-17) mg/dL Creatinine (0.52-1.04) mg/dL Glucose (74-99) mg/dL POC Glucose (mg/dL) 167 H (75-99) mg/dL Calcium (8.4-10.2) mg/dL AST (14-36) U/L Total Creatine Kinase (30-135) U/L Troponin I (0.000-0.034) ng/mL Total Protein (6.3-8.2) g/dL Albumin (3.5-5.0) g/dL Urine Protein (Negative) Influenza Type A RNA (Not Detectd) Assessment and Plan Plan: -Septic shock: Secondary to influenza A infection continue with IV fluids, this can you Lasix. Continue ventilator support and wean off as tolerated. -Acute hypercapnic respiratory failure: Secondary to COPD exacerbation which is precipitated by influenza. Patient does not appear to have any pneumonia does have atelectasis and a masslike lesion in the right lower lobe.
[2018-01-10 12:53] LABS: Glucose,Whole Blood 128 mg/dL (75-99)
[2018-01-10] MEDS: INSULIN ASPART 100 UNIT/ML 1 ML 10 ML VIAL SQ SCH ×2 (13:01→18:24)
--- NOTE | 2018-01-10 13:33 | P.CNPUL ---
History of Present Illness Consult date: 01/10/18 Reason for consult: other (Acute respiratory failure secondary to COPD) Chief complaint: Shortness of breath History of present illness: This is a 72-year-old female with history of congestive heart failure, COPD, started having increased shortness of breath around 5 PM yesterday. Patient was noted noted by the ER physician in [place] as having struggled to breathe. She was initially placed on BiPAP, but apparently Deteriorating, and ended up intubated and placed on mechanical ventilation. Patient was transferred to our emergency room, evaluated briefly in the ER, and admitted to the ICU. Patient apparently had what seemed to be a picture of hypoxic and hypercapnic respiratory failure with positive influenza A screening, CT of the chest upon admission showed no evidence of pulmonary embolism, but there was a 4 cm spiculated mass in the right lower lobe abutting the pleural surface, and there is also some consolidation and pneumonic process in the right lower lobe. There was also evidence of the 2 cm left breast mass and a 14 mm nodule in the left lung base. On the mediastinal windows there was evidence of right hilar lymphadenopathy suspicious for deisy metastasis. Upon my evaluation, the patient was noted to be on mechanical ventilation, no family members available at bedside, and most of the information was obtained from the chart from [facility], and from our ER. Labs were reviewed her ABG showed a pO2 of 80 pCO2 of 49 pH of 7.32. Ventilator settings were basically unchanged. Troponin was noted to be a bit elevated at 0.173, doubt clinical significance. WBC count was 25.6 hemoglobin 11.8. D-dimer was 3.39 again her workup for pulmonary embolism was negative. Influenza screen was positive for influenza A. Review of Systems Review of systems could not be obtained, and no family members available at bedside. Patient is intubated on mechanical ventilation and sedated with Ativan. Past Medical History Past Medical History: Heart Failure, COPD Additional Past Medical History / Comment(s): 06-06-15 ADMITTED TO [facility] WITH COPD /CHF, OTHER HX HAND TREMORS(OCC). 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) Past Anesthesia/Blood Transfusion Reactions: No Reported Reaction Past Psychological History: No Psychological Hx Reported Smoking Status: Former smoker Past Alcohol Use History: Daily Past Drug Use History: None Reported - Past Family History Mother Family Medical History: Congestive Heart Failure (CHF), Coronary Artery Disease (CAD), Hyperlipidemia, Hypertension Additional Family Medical History / Comment(s): CABG Father Family Medical History: Cancer, Myocardial Infarction ([place]) Medications and Allergies Home Medications Medication Instructions Recorded Confirmed Type Furosemide [Lasix] 40 mg PO DAILY #30 tablet 06/11/15 01/10/18 Rx Budesonide [Pulmicort] 0.5 mg INHALATION RT-BID 12/29/17 01/10/18 History Ipratropium-Albuterol Nebulize 3 ml IH RT-TID 12/29/17 01/10/18 History [Duoneb 0.5 mg-3 mg/3 ml Soln] predniSONE 10 mg PO DAILY #0 01/03/18 01/10/18 Rx Cephalexin [Keflex] 500 mg PO Q8HR 7 Days #21 cap 01/04/18 01/10/18 Rx predniSONE See Taper PO DIRECTED 01/10/18 01/10/18 History Allergies Allergy/AdvReac Type Severity Reaction Status Date / Time Penicillins Allergy Unknown Verified 01/10/18 07:47 strawberry Allergy Unknown Verified 01/10/18 07:47 Physical Exam Vitals: Vital Signs Temp Pulse Resp BP Pulse Ox 01/10/18 11:52 84 01/10/18 11:32 92 01/10/18 10:00 87 21 65/45 94 L 01/10/18 09:30 89 23 107/60 97 01/10/18 09:00 85 23 123/58 98 01/10/18 08:40 87 01/10/18 08:30 80 23 136/63 97 01/10/18 08:24 79 01/10/18 08:00 81 23 125/61 94 L 01/10/18 07:30 98.4 F 81 29 H 115/61 96 01/10/18 07:00 81 23 120/62 95 01/10/18 06:15 97.6 F 82 24 108/64 98 01/10/18 05:35 84 104/58 95 01/10/18 05:05 88 98/52 96 01/10/18 04:35 92 108/55 96 01/10/18 04:05 94 99/56 96 01/10/18 03:35 98 99/54 96 01/10/18 03:01 100 100/56 97 01/10/18 02:28 104 H 112/55 96 01/10/18 02:01 99.9 F H 107 H 21 80/50 95 Intake and Output 01/09/18 01/10/18 01/10/18 22:59 06:59 14:59 Intake Total 49.688 600 Output Total 270 Balance 49.688 330 Intake: IV 600 Sodium Chloride 0.9% 1, 600 000 ml @ 150 mls/hr IV . Q6H40M [facility] Rx#:[id number] Intake, IV Titration 49.688 Amount Norepinephrin 4 mg-0.9% 49.688 Ns Pmx 4 mg In 250 ml @ Titrate IV .Q0M ONE Rx#: [id number] Output: Urine 270 Other: Voiding Method Indwelling Catheter Indwelling Catheter # Bowel Movements 0 Weight 89.5 kg 89.5 kg Patient Weight 01/11/18 06:59 Weight 89.5 kg Physical Exam: Revealed a 72-year-old female, intubated, on mechanical ventilation, in no distress, fully sedated. HEENT:[Neck is supple.] [No neck masses.] [No thyromegaly.] [No JVD.] Endotracheal tube is intact, moist mucous membranes were noted. No neck masses , no JVD was appreciated. Chest: [Crackles at the bases bilaterally, especially at the right base, no rhonchi, no wheezes were appreciated. Symmetrical chest expansion was noted..] Cardiac Exam: [Normal S1 and S2, no S3 gallop, no murmur.] Abdomen: [Obese, Soft, nontender, no megaly, no rebound, no guarding, normal bowel sounds.] Extremities: [Evidence of chronic lymphedema, and resolving cellulitis from the left lower extremity was noted.] Neurological Exam: Not be assessed, patient is fully sedated, on mechanical ventilation. Psychiatric: Cannot be assessed. Lymphatics: No lymphadenopathy was appreciated. Results - Laboratory Findings CBC and BMP: 01/10/18 02:08 01/10/18 02:50 ABG ABG pH 7.32 (7.35-7.45) L 01/10/18 08:19 ABG pCO2 49 mmHg (35-45) H 01/10/18 08:19 ABG pO2 80 mmHg (83-108) L 01/10/18 08:19 ABG O2 Saturation 96.0 % (94-97) 01/10/18 08:19 PT/INR, D-dimer PT 9.7 sec (9.0-12.0) 01/10/18 04:05 INR 1.0 (<1.2) 01/10/18 04:05 D-Dimer 3.39 mg/L FEU (<0.60) H 01/10/18 04:05 Abnormal lab findings: Abnormal Labs 01/10/18 01/10/18 01/10/18 02:08 02:08 02:08 WBC 25.6 H* MCHC 30.4 L Neutrophils # (Manual) 25.30 H D-Dimer ABG pH ABG pCO2 ABG pO2 ABG HCO3 ABG Total CO2 ABG O2 Saturation BUN Creatinine Glucose POC Glucose (mg/dL) Calcium AST Total Creatine Kinase Troponin I Total Protein Albumin Urine Protein Trace H Influenza Type A RNA Detected H 01/10/18 01/10/18 01/10/18 02:22 02:50 02:50 WBC MCHC Neutrophils # (Manual) D-Dimer ABG pH 7.16 L* ABG pCO2 78 H* ABG pO2 348 H ABG HCO3 28 H ABG Total CO2 30 H ABG O2 Saturation 99.1 H BUN 21 H Creatinine 1.40 H Glucose 150 H POC Glucose (mg/dL) Calcium 7.8 L AST 47 H Total Creatine Kinase 183 H Troponin I 0.173 H* Total Protein 5.6 L Albumin 2.8 L Urine Protein Influenza Type A RNA 01/10/18 01/10/18 01/10/18 04:05 06:13 08:19 WBC MCHC Neutrophils # (Manual) D-Dimer 3.39 H ABG pH 7.32 L ABG pCO2 49 H ABG pO2 80 L ABG HCO3 ABG Total CO2 27 H ABG O2 Saturation BUN Creatinine Glucose POC Glucose (mg/dL) 167 H Calcium AST Total Creatine Kinase Troponin I Total Protein Albumin Urine Protein Influenza Type A RNA 01/10/18 12:51 WBC MCHC Neutrophils # (Manual) D-Dimer ABG pH ABG pCO2 ABG pO2 ABG HCO3 ABG Total CO2 ABG O2 Saturation BUN Creatinine Glucose POC Glucose (mg/dL) 128 H Calcium AST Total Creatine Kinase Troponin I Total Protein Albumin Urine Protein Influenza Type A RNA - Diagnostic Findings Chest x-ray: image reviewed CT scan - chest: image reviewed Assessment and Plan Assessment: Impression: 1 acute hypoxic and hypercapnic respiratory failure secondary to acute exacerbation of COPD, triggered by influenza A, right lower lobe pneumonia is strongly suspected, community-acquired, and sepsis. 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 3 left breast nodule likely malignant unless proven otherwise seen on CT of the chest. 4 acute sepsis and septic shock requiring norepinephrine in spite of of fluid boluses upon presentation. 5 acute right lower lobe pneumonia, community-acquired 6 acute exacerbation of COPD, patient is known to have history of COPD and prednisone dependenton her history. 7 history of congestive heart failure, not clear whether systolic or diastolic based on the history. Ejection fraction is presently unknown. Recommendation: Continue present supportive care measures including mechanical ventilation, blood pressure support, nutritional support, hemodynamic support, antibiotics, bronchodilators, steroids, use stress doses of hydrocortisone, workup of her underlying lung mass could be done on outpatient basis once the patient improves and extubated. Prognosis is presently poor and guarded. We' ll continue to follow, and we'll discuss different options with family at bedside. Critical care time is 45 minutes Time with Patient: Greater than 30
[2018-01-10] MEDS ORDERED: NOREPINEPHRIN 4 MG-0.9% NS PMX 4 MG/250 ML ML IV SCH (15:45)
[2018-01-10 18:26] LABS: Glucose,Whole Blood 102 mg/dL (75-99)
[2018-01-10] MEDS: CHLORHEXIDINE GLUCONATE 15 ML CUP MUCOUS MEM SCH (20:01)
[2018-01-10] MEDS: PROPOFOL 1,000 MG in EMPTY BAG 1 BAG IV SCH ×2 (20:03→23:51)
[2018-01-10] MEDS: FORMOTEROL FUMARATE 20 MCG/2 ML NEBU INHALATION SCH (20:12)
[2018-01-10] MEDS: OSELTAMIVIR 60 MG/10 ML ORAL SYRINGE PO SCH (20:40)
[2018-01-11] MEDS: methylPREDNISolone SOD SUCCI 125 MG/2 ML VIAL IV SCH ×4 (00:29→18:13)
[2018-01-11 00:53] LABS: Glucose,Whole Blood 153 mg/dL (75-99)
[2018-01-11] MEDS: INSULIN ASPART 100 UNIT/ML 1 ML 10 ML VIAL SQ SCH ×4 (00:55→18:19)
[2018-01-11] MEDS: SODIUM CHLORIDE 0.9% 1,000 ML IV SCH ×3 (00:57→21:31)
[2018-01-11] MEDS: IPRATROPIUM-ALBUTEROL 3 ML NEB INHALATION PRN ×4 (03:20→18:54)
[2018-01-11 04:30] LABS: Basophils % (A) 0 %; Eosinophils % (A) 0 %; HCT 39.6 % (34.0-46.0); HGB 11.7 gm/dL (11.4-16.0); Hypochromasia Marked; Lymphocytes # (A) 0.3 k/uL (1.0-4.8); Lymphocytes % (A) 2 %; MCH 27.4 pg (25.0-35.0); MCHC 29.5 g/dL (31.0-37.0); MCV 92.8 fL (80.0-100.0); Mean Platelet Volume 7.6; Monocytes # (A) 0.3 k/uL (0-1.0); Monocytes % (A) 2 %; Neutrophils # (A) 12.6 k/uL (1.3-7.7); Neutrophils % (A) 95 %; Platelet Count 154 k/uL (150-450); RBC 4.27 m/uL (3.80-5.40); RDW 15.5 % (11.5-15.5); WBC 13.3 k/uL (3.8-10.6)
[2018-01-11 04:38] LABS: Albumin 2.4 g/dL (3.5-5.0); Calcium 7.5 mg/dL (8.4-10.2); Potassium 4.6 mmol/L (3.5-5.1); Total Bilirubin 0.4 mg/dL (0.2-1.3); Total Protein 4.9 g/dL (6.3-8.2)
[2018-01-11] MEDS: PROPOFOL 1,000 MG in EMPTY BAG 1 BAG IV SCH ×3 (05:25→20:23)
[2018-01-11 05:41] LABS: Glucose,Whole Blood 133 mg/dL (75-99)
[2018-01-11 07:42] LABS: ABG Base Excess -0.3 mmol/L; ABG HCO3 25 mmol/L (21-25); ABG Oxygen Saturation 91.6 % (94-97); ABG PCO2 47 mmHg (35-45); ABG PH 7.34 (7.35-7.45); ABG PO2 63 mmHg (83-108); ABG TCO2 27 mmol/L (19-24)
[2018-01-11] MEDS: FORMOTEROL FUMARATE 20 MCG/2 ML NEBU INHALATION SCH ×2 (07:51→18:54)
[2018-01-11] MEDS: BUDESONIDE 0.5 MG/2 ML NEBU INHALATION SCH ×2 (07:51→18:54)
--- NOTE | 2018-01-11 08:14 | XR ---
EXAMINATION TYPE: XR chest 1V portable DATE OF EXAM: 01/11/2018 COMPARISON: Prior chest x-ray 12/30/2017 HISTORY: Intubated TECHNIQUE: Single frontal view of the chest is obtained. FINDINGS: Endotracheal and NG tube are overlying appropriate positions. Right lower lobe lung mass i s stable. Heart remains enlarged. No evident pneumothorax. No sizable effusion. Pulmonary vascularity and ezequiel not significantly changed. IMPRESSION: Cardiomegaly. Interval intubation. Right lower lobe lung mass.
[2018-01-11] MEDS: CHLORHEXIDINE GLUCONATE 15 ML CUP MUCOUS MEM SCH ×2 (08:35→21:31)
[2018-01-11] MEDS: HEPARIN SODIUM,PORCINE 5,000 UNIT/ML 1 ML VIAL SQ SCH ×2 (08:35→21:31)
[2018-01-11] MEDS: FAMOTIDINE 20 MG/2 ML VIAL IV SCH (08:35)
[2018-01-11] MEDS: OSELTAMIVIR 60 MG/10 ML ORAL SYRINGE PO SCH ×2 (08:37→21:31)
[2018-01-11] MEDS ORDERED: LEVOFLOXACIN 750MG-D5W PMX 750 MG in DEXTROSE/WATER 1 150ML.BAG IVPB SCH (09:00)
[2018-01-11] MEDS ORDERED: SODIUM CHLORIDE 0.9% 1,000 ML IV ONE ×2 (09:52→17:54)
--- NOTE | 2018-01-11 10:55 | P.PN ---
Subjective Progress Note Date: 01/11/18 Principal diagnosis: Acute hypoxic and hypercapnic respiratory failure secondary to COPD, influenza A , right lower lobe pneumonia. This is a 72-year-old female with history of congestive heart failure, COPD, started having increased shortness of breath around 5 PM yesterday. Patient was noted noted by the ER physician in [place] as having struggled to breathe. She was initially placed on BiPAP, but apparently Deteriorating, and ended up intubated and placed on mechanical ventilation. Patient was transferred to our emergency room, evaluated briefly in the ER, and admitted to the ICU. Patient apparently had what seemed to be a picture of hypoxic and hypercapnic respiratory failure with positive influenza A screening, CT of the chest upon admission showed no evidence of pulmonary embolism, but there was a 4 cm spiculated mass in the right lower lobe abutting the pleural surface, and there is also some consolidation and pneumonic process in the right lower lobe. There was also evidence of the 2 cm left breast mass and a 14 mm nodule in the left lung base. On the mediastinal windows there was evidence of right hilar lymphadenopathy suspicious for deisy metastasis. Upon my evaluation, the patient was noted to be on mechanical ventilation, no family members available at bedside, and most of the information was obtained from the chart from [facility], and from our ER. Labs were reviewed her ABG showed a pO2 of 80 pCO2 of 49 pH of 7.32. Ventilator settings were basically unchanged. Troponin was noted to be a bit elevated at 0.173, doubt clinical significance. WBC count was 25.6 hemoglobin 11.8. D-dimer was 3.39 again her workup for pulmonary embolism was negative. Influenza screen was positive for influenza A. Patient was reevaluated today on 01/11/2018, remains on mechanical ventilation, patient had her sedation on hold earlier this morning, but she became tachypneic , tachycardic, hypertensive, and not appropriate, restless, agitated, hence patient was placed back on propofol drip. Her ventilator settings are basically about the same, increased her tidal volume to 500. ABG showed a pO2 of 63 pCO2 of 47 pH of 7.34 and this is on a 50% FiO2 and PEEP of 5. CBC showed leukocytosis with WBC count of 13.3 hemoglobin is 11.7. Basic metabolic profile is relatively normal, BUN and creatinine are improved with creatinine of 1.18. It was 1.40 yesterday. Chest x-ray showed right lower lobe mass, pneumonic process also noted in the right lower lobe, and a small left pleural effusion also noted. Her WBC count today is improved compared to the WBC count on admission which was over 25,000. Airway mechanics on mechanical ventilation seem to be normal with rectal pressures in the range of 15, peak airway pressure is about 27. Objective - Vital Signs Vital signs: Vital Signs Temp 98.8 F 01/11/18 08:00 Pulse 92 01/11/18 10:00 Resp 24 01/11/18 10:00 BP 103/57 01/11/18 10:00 Pulse Ox 94 L 01/11/18 10:00 Intake & Output 01/10/18 01/11/18 01/11/18 18:59 06:59 18:59 Intake Total 1580 2069.60 531.687 Output Total 825 755 115 Balance 755 1314.60 416.687 Weight 89.5 kg 90.4 kg Intake: IV 1500 1100 300 Sodium Chloride 0.9% 1, 1500 1100 300 000 ml @ 100 mls/hr IV . Q10H [facility] Rx#:[id number] Intake, IV Titration 319.60 41.687 Amount Norepinephrin 4 mg-0.9% 146.25 41.687 Ns Pmx 4 mg In 250 ml @ Titrate IV .Q0M [facility] Rx#: [id number] Propofol 1,000 mg In 173.35 Empty Bag 1 bag @ Titrate IV .Q0M [facility] Rx#: [id number] Tube Feeding 80 560 160 Other 90 30 Output: Gastric Drainage 100 Urine 725 755 115 Other: Voiding Method Indwelling Catheter Indwelling Catheter Indwelling Catheter # Bowel Movements 0 0 1 - Exam Physical Exam: Revealed a 72-year-old female, intubated, on mechanical ventilation, in no distress, fully sedated. HEENT:[Neck is supple.] [No neck masses.] [No thyromegaly.] [No JVD.] Endotracheal tube is intact, moist mucous membranes were noted. No neck masses , no JVD was appreciated. Chest: [Crackles at the bases bilaterally, especially at the right base, no rhonchi, no wheezes were appreciated. Symmetrical chest expansion was noted..] Cardiac Exam: [Normal S1 and S2, no S3 gallop, no murmur.] Abdomen: [Obese, Soft, nontender, no megaly, no rebound, no guarding, normal bowel sounds.] Extremities: [Evidence of chronic lymphedema, and resolving cellulitis from the left lower extremity was noted.] Neurological Exam: Not be assessed, patient is fully sedated, on mechanical ventilation. Psychiatric: Cannot be assessed. Lymphatics: No lymphadenopathy was appreciated. Left breast was examined, and it showed a left upper quadrant mass measuring about 2.5 cm, hard,, nontender. - Labs CBC & Chem 7: 01/11/18 04:02 01/11/18 04:02 Labs: Abnormal Lab Results - Last 24 Hours (Table) 01/10/18 01/10/18 01/11/18 Range/Units 12:51 18:24 00:51 WBC (3.8-10.6) k/uL MCHC (31.0-37.0) g/dL Neutrophils # (1.3-7.7) k/uL Lymphocytes # (1.0-4.8) k/uL ABG pH (7.35-7.45) ABG pCO2 (35-45) mmHg ABG pO2 (83-108) mmHg ABG Total CO2 (19-24) mmol/L ABG O2 Saturation (94-97) % BUN (7-17) mg/dL Creatinine (0.52-1.04) mg/dL Glucose (74-99) mg/dL POC Glucose (mg/dL) 128 H 102 H 153 H (75-99) mg/dL Calcium (8.4-10.2) mg/dL AST (14-36) U/L Total Protein (6.3-8.2) g/dL Albumin (3.5-5.0) g/dL 01/11/18 01/11/18 01/11/18 Range/Units 04:02 04:02 05:40 WBC 13.3 H (3.8-10.6) k/uL MCHC 29.5 L (31.0-37.0) g/dL Neutrophils # 12.6 H (1.3-7.7) k/uL Lymphocytes # 0.3 L (1.0-4.8) k/uL ABG pH (7.35-7.45) ABG pCO2 (35-45) mmHg ABG pO2 (83-108) mmHg ABG Total CO2 (19-24) mmol/L ABG O2 Saturation (94-97) % BUN 28 H (7-17) mg/dL Creatinine 1.18 H (0.52-1.04) mg/dL Glucose 149 H (74-99) mg/dL POC Glucose (mg/dL) 133 H (75-99) mg/dL Calcium 7.5 L (8.4-10.2) mg/dL AST 38 H (14-36) U/L Total Protein 4.9 L (6.3-8.2) g/dL Albumin 2.4 L (3.5-5.0) g/dL 01/11/18 Range/Units 07:40 WBC (3.8-10.6) k/uL MCHC (31.0-37.0) g/dL Neutrophils # (1.3-7.7) k/uL Lymphocytes # (1.0-4.8) k/uL ABG pH 7.34 L (7.35-7.45) ABG pCO2 47 H (35-45) mmHg ABG pO2 63 L (83-108) mmHg ABG Total CO2 27 H (19-24) mmol/L ABG O2 Saturation 91.6 L (94-97) % BUN (7-17) mg/dL Creatinine (0.52-1.04) mg/dL Glucose (74-99) mg/dL POC Glucose (mg/dL) (75-99) mg/dL Calcium (8.4-10.2) mg/dL AST (14-36) U/L Total Protein (6.3-8.2) g/dL Albumin (3.5-5.0) g/dL Assessment and Plan Assessment: Impression: 1 acute hypoxic and hypercapnic respiratory failure secondary to acute exacerbation of COPD, triggered by influenza A, right lower lobe pneumonia is strongly suspected, community-acquired, and sepsis. 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 3 left breast nodule likely malignant unless proven otherwise seen on CT of the chest. This was confirmed by physical examination today. 4 acute sepsis and septic shock requiring norepinephrine in spite of of fluid boluses upon presentation. Patient remains today on 2 g of norepinephrine. More fluid boluses will be given today. Cultures are not available to me at this point so far. Apparently the cultures were drawn in [facility]. 5 acute right lower lobe pneumonia, community-acquired 6 acute exacerbation of COPD, patient is known to have history of COPD and prednisone dependenton her history. 7 history of congestive heart failure, not clear whether systolic or diastolic based on the history. Ejection fraction is presently unknown. Recommendation: Continue present supportive care measures including mechanical ventilation, blood pressure support, nutritional support, hemodynamic support, antibiotics, bronchodilators, steroids, use stress doses of hydrocortisone, workup of her underlying lung mass could be done on outpatient basis once the patient improves and extubated. Prognosis is presently poor and guarded. We' ll arrange for PICC line placement, we'll discuss with the family prognosis, and possibly consider terminal weaning and comfort care measures since the chest x-ray and a CT of the chest are pointing to metastatic lung cancer, and the patient may also have left breast cancer. This will be discussed with the family, and we'll decide what to do next. Critical care time is 40 minutes. Time with Patient: Greater than 30
[2018-01-11] MEDS ORDERED: LIDOCAINE 2% INJ 20 MG/ML SQ ONE (10:59)
--- NOTE | 2018-01-11 11:32 | XR ---
EXAMINATION TYPE: XR chest 1V portable DATE OF EXAM: 01/11/2018 COMPARISON: Prior chest x-ray 01/11/2018 HISTORY: PICC line placement TECHNIQUE: Single frontal view of the chest is obtained. FINDINGS: Distal tip of the PICC line shows a fold however is overlying superior vena cava. No pneum othorax. IMPRESSION: PICC line as described.
[2018-01-11 11:59] LABS: Glucose,Whole Blood 125 mg/dL (75-99)
[2018-01-11] MEDS: NOREPINEPHRIN 16 MG-0.9%NS PMX 16 MG/250 ML ML IV SCH (13:00)
--- NOTE | 2018-01-11 13:37 | IR ---
EXAMINATION TYPE: IR cvc insert >=5 years DATE OF EXAM: 01/11/2018 COMPARISON: NONE HISTORY: Needs intravenous access for therapy, lung mass FINDINGS: Maximal barrier technique was utilized. The skin overlying the right brachial vein was loc alized with ultrasound and noted to be compressible and patent by ultrasound. An ultrasound image wa s obtained and submitted on patient's chart. Sterile technique utilized with the ultrasound machine. The skin overlying was prepped and draped and Lidocaine used for local anesthesia. A skin echo was m martinez with a scalpel. Access was gained to the vein under direct ultrasound guidance with a 21-gauge n eedle and a 0.018 inch wire was advanced. Access site was dilated with a peel-away sheath and the ca theter tailored to length. Catheter advanced centrally and a post procedure chest x-ray verified court cement with the tip in the superior vena cava. Catheter was fixed to the skin and a sterile dressing placed. Hemostasis achieved and the catheter was aspirated and flushed with sterile saline. The pa tient remained in stable condition. IMPRESSION: STATUS POST ULTRASOUND GUIDED PICC LINE PLACEMENT, READY FOR USE. THIS PROCEDURE WAS PER FORMED BY THE UNDERSIGNED.
--- NOTE | 2018-01-11 16:00 | P.PN ---
Subjective Patient was admitted secondary to influenza tracheobronchitis and COPD exacerbation patient admits intubated patient has poor residual lung function. Normal uses 2.5 L of onset at home. Patient remains on the ventilator without any improvement in her respiratory status. Patient is still on low dose of norepinephrine. On high-dose of the sedation. Objective - Vital Signs Vital signs: Vital Signs Temp 98.7 F 01/11/18 12:00 Pulse 86 01/11/18 15:28 Resp 24 01/11/18 13:00 BP 111/63 01/11/18 13:00 Pulse Ox 94 L 01/11/18 13:00 Intake & Output 01/10/18 01/11/18 01/11/18 18:59 06:59 18:59 Intake Total 1580 2069.60 2246.225 Output Total 825 755 240 Balance 755 1314.60 2006.225 Weight 89.5 kg 90.4 kg Intake: IV 1500 1100 700 Sodium Chloride 0.9% 1, 1500 1100 700 000 ml @ 100 mls/hr IV . Q10H [facility] Rx#:[id number] Intake, IV Titration 319.60 1166.225 Amount Norepinephrin 4 mg-0.9% 146.25 41.687 Ns Pmx 4 mg In 250 ml @ Titrate IV .Q0M [facility] Rx#: [id number] Propofol 1,000 mg In 173.35 124.538 Empty Bag 1 bag @ Titrate IV .Q0M [facility] Rx#: [id number] Sodium Chloride 0.9% 1, 1000 000 ml @ 999 mls/hr IV . Q1H1M [facility] Rx#:[id number] Tube Feeding 80 560 320 Other 90 60 Output: Gastric Drainage 100 Urine 725 755 240 Other: Voiding Method Indwelling Catheter Indwelling Catheter Indwelling Catheter # Bowel Movements 0 0 1 - Exam PHYSICAL EXAMINATION: GENERAL: Patient is intubated sedated, on levo fed assist-control ventilation HEENT: Pupils are round and equally reacting to light. EOMI. No scleral icterus. No conjunctival pallor. Normocephalic, atraumatic. No pharyngeal erythema. No thyromegaly. CARDIOVASCULAR: S1 and S2 present. No murmurs, rubs, or gallops. PULMONARY: Diffuse wheezing bilaterally ABDOMEN: Soft, nontender, nondistended, normoactive bowel sounds. No palpable organomegaly. MUSCULOSKELETAL: No joint swelling or deformity. EXTREMITIES: No cyanosis, clubbing, or pedal edema. NEUROLOGICAL: Unable to assess SKIN: No rashes. - Labs CBC & Chem 7: 01/11/18 04:02 01/11/18 04:02 Labs: Abnormal Lab Results - Last 24 Hours (Table) 01/10/18 01/11/18 01/11/18 Range/Units 18:24 00:51 04:02 WBC 13.3 H (3.8-10.6) k/uL MCHC 29.5 L (31.0-37.0) g/dL Neutrophils # 12.6 H (1.3-7.7) k/uL Lymphocytes # 0.3 L (1.0-4.8) k/uL ABG pH (7.35-7.45) ABG pCO2 (35-45) mmHg ABG pO2 (83-108) mmHg ABG Total CO2 (19-24) mmol/L ABG O2 Saturation (94-97) % BUN (7-17) mg/dL Creatinine (0.52-1.04) mg/dL Glucose (74-99) mg/dL POC Glucose (mg/dL) 102 H 153 H (75-99) mg/dL Calcium (8.4-10.2) mg/dL AST (14-36) U/L Total Protein (6.3-8.2) g/dL Albumin (3.5-5.0) g/dL 01/11/18 01/11/18 01/11/18 Range/Units 04:02 05:40 07:40 WBC (3.8-10.6) k/uL MCHC (31.0-37.0) g/dL Neutrophils # (1.3-7.7) k/uL Lymphocytes # (1.0-4.8) k/uL ABG pH 7.34 L (7.35-7.45) ABG pCO2 47 H (35-45) mmHg ABG pO2 63 L (83-108) mmHg ABG Total CO2 27 H (19-24) mmol/L ABG O2 Saturation 91.6 L (94-97) % BUN 28 H (7-17) mg/dL Creatinine 1.18 H (0.52-1.04) mg/dL Glucose 149 H (74-99) mg/dL POC Glucose (mg/dL) 133 H (75-99) mg/dL Calcium 7.5 L (8.4-10.2) mg/dL AST 38 H (14-36) U/L Total Protein 4.9 L (6.3-8.2) g/dL Albumin 2.4 L (3.5-5.0) g/dL 01/11/18 Range/Units 11:57 WBC (3.8-10.6) k/uL MCHC (31.0-37.0) g/dL Neutrophils # (1.3-7.7) k/uL Lymphocytes # (1.0-4.8) k/uL ABG pH (7.35-7.45) ABG pCO2 (35-45) mmHg ABG pO2 (83-108) mmHg ABG Total CO2 (19-24) mmol/L ABG O2 Saturation (94-97) % BUN (7-17) mg/dL Creatinine (0.52-1.04) mg/dL Glucose (74-99) mg/dL POC Glucose (mg/dL) 125 H (75-99) mg/dL Calcium (8.4-10.2) mg/dL AST (14-36) U/L Total Protein (6.3-8.2) g/dL Albumin (3.5-5.0) g/dL Microbiology - Last 24 Hours (Table) 01/10/18 20:15 Gram Stain - Preliminary Sputum Assessment and Plan Plan: -Septic shock: Secondary to influenza A infection continue with IV fluids, Lasix was discontinued Continue ventilator support and wean off as tolerated. -Acute hypercapnic respiratory failure: Secondary to COPD exacerbation which is precipitated by influenza. Patient does not appear to have any pneumonia does have atelectasis and a masslike lesion in the right lower lobe. Patient is on levofloxacin at this time was started by unmanned aircraft systems roboticist Leukocytosis: Secondary to sepsis -Elevated d-dimer without any evidence of PE -Acute renal failure secondary to septic shock continue with IV fluids Discussed with family members regarding her overall goals of care considering lung lesions highly concerning for malignancy and her for basal pulmonary status patient is more appropriate for comfort care terminal wean.
[2018-01-11 18:18] LABS: Glucose,Whole Blood 147 mg/dL (75-99)
[2018-01-11 23:57] LABS: Glucose,Whole Blood 174 mg/dL (75-99)
[2018-01-12] MEDS: methylPREDNISolone SOD SUCCI 125 MG/2 ML VIAL IV SCH ×5 (00:12→23:04)
[2018-01-12] MEDS: PROPOFOL 1,000 MG in EMPTY BAG 1 BAG IV SCH ×6 (00:12→22:21)
[2018-01-12] MEDS: INSULIN ASPART 100 UNIT/ML 1 ML 10 ML VIAL SQ SCH ×4 (00:12→17:52)
[2018-01-12] MEDS: SODIUM CHLORIDE 0.9% 1,000 ML IV SCH ×2 (04:03→17:32)
[2018-01-12 04:18] LABS: Basophils % (A) 0 %; Eosinophils % (A) 0 %; HCT 38.9 % (34.0-46.0); HGB 10.9 gm/dL (11.4-16.0); Hypochromasia Marked; Lymphocytes # (A) 0.3 k/uL (1.0-4.8); Lymphocytes % (A) 5 %; MCH 27.3 pg (25.0-35.0); MCHC 28.1 g/dL (31.0-37.0); MCV 96.9 fL (80.0-100.0); Mean Platelet Volume 8.2; Monocytes # (A) 0.2 k/uL (0-1.0); Monocytes % (A) 3 %; Neutrophils # (A) 5.8 k/uL (1.3-7.7); Neutrophils % (A) 90 %; Platelet Count 124 k/uL (150-450); RBC 4.02 m/uL (3.80-5.40); WBC 6.4 k/uL (3.8-10.6)
[2018-01-12 04:35] LABS: ALT 31 U/L (9-52); AST 31 U/L (14-36); Albumin 2.2 g/dL (3.5-5.0); Alkaline Phosphatase 70 U/L (38-126); Anion Gap 7 mmol/L; Blood Urea Nitrogen 29 mg/dL (7-17); Calcium 7.6 mg/dL (8.4-10.2); Carbon Dioxide 21 mmol/L (22-30); Chloride 110 mmol/L (98-107); Glucose 163 mg/dL (74-99); Magnesium 2.4 mg/dL (1.6-2.3); Phosphorus 3.6 mg/dL (2.5-4.5); Potassium 4.9 mmol/L (3.5-5.1); Sodium 138 mmol/L (137-145); Total Bilirubin 0.2 mg/dL (0.2-1.3); Total Protein 4.6 g/dL (6.3-8.2)
[2018-01-12 06:11] LABS: Glucose,Whole Blood 171 mg/dL (75-99)
--- NOTE | 2018-01-12 08:07 | XR ---
EXAMINATION TYPE: XR chest 1V portable DATE OF EXAM: 01/12/2018 COMPARISON: Prior chest x-ray 01/11/2018 HISTORY: Intubated TECHNIQUE: Single frontal view of the chest is obtained. FINDINGS: The PICC line has unfolded, distal tip in the right atrium. Endotracheal tube, NG tube are overlying appropriate positions. No evident pneumothorax. Patient's lung mass is stable. Heart size is unchanged. IMPRESSION: Interval change in the PICC line tip as described. Otherwise stable exam.
[2018-01-12 08:16] LABS: ABG Base Excess -2.6 mmol/L; ABG HCO3 24 mmol/L (21-25); ABG Oxygen Saturation 95.9 % (94-97); ABG PCO2 46 mmHg (35-45); ABG PH 7.32 (7.35-7.45); ABG PO2 80 mmHg (83-108); ABG TCO2 25 mmol/L (19-24)
[2018-01-12] MEDS: FAMOTIDINE 20 MG/2 ML VIAL IV SCH (08:17)
[2018-01-12] MEDS: CHLORHEXIDINE GLUCONATE 15 ML CUP MUCOUS MEM SCH ×2 (08:17→21:06)
[2018-01-12] MEDS: OSELTAMIVIR 60 MG/10 ML ORAL SYRINGE PO SCH ×2 (08:17→21:06)
[2018-01-12] MEDS: HEPARIN SODIUM,PORCINE 5,000 UNIT/ML 1 ML VIAL SQ SCH ×2 (08:17→21:06)
[2018-01-12] MEDS: FORMOTEROL FUMARATE 20 MCG/2 ML NEBU INHALATION SCH ×2 (08:20→19:10)
[2018-01-12] MEDS: BUDESONIDE 0.5 MG/2 ML NEBU INHALATION SCH ×2 (08:20→19:09)
[2018-01-12] MEDS: IPRATROPIUM-ALBUTEROL 3 ML NEB INHALATION PRN ×4 (08:20→19:10)
[2018-01-12] MEDS: metroNIDAZOLE 500 MG TAB PO SCH ×3 (10:19→21:13)
[2018-01-12 11:21] LABS: Glucose,Whole Blood 149 mg/dL (75-99)
--- NOTE | 2018-01-12 11:28 | P.PN ---
Subjective Progress Note Date: 01/12/18 Principal diagnosis: Acute hypoxic and hypercapnic respiratory failure secondary to COPD, influenza A , right lower lobe pneumonia. This is a 72-year-old female with history of congestive heart failure, COPD, started having increased shortness of breath around 5 PM yesterday. Patient was noted noted by the ER physician in [place] as having struggled to breathe. She was initially placed on BiPAP, but apparently Deteriorating, and ended up intubated and placed on mechanical ventilation. Patient was transferred to our emergency room, evaluated briefly in the ER, and admitted to the ICU. Patient apparently had what seemed to be a picture of hypoxic and hypercapnic respiratory failure with positive influenza A screening, CT of the chest upon admission showed no evidence of pulmonary embolism, but there was a 4 cm spiculated mass in the right lower lobe abutting the pleural surface, and there is also some consolidation and pneumonic process in the right lower lobe. There was also evidence of the 2 cm left breast mass and a 14 mm nodule in the left lung base. On the mediastinal windows there was evidence of right hilar lymphadenopathy suspicious for deisy metastasis. Upon my evaluation, the patient was noted to be on mechanical ventilation, no family members available at bedside, and most of the information was obtained from the chart from [facility], and from our ER. Labs were reviewed her ABG showed a pO2 of 80 pCO2 of 49 pH of 7.32. Ventilator settings were basically unchanged. Troponin was noted to be a bit elevated at 0.173, doubt clinical significance. WBC count was 25.6 hemoglobin 11.8. D-dimer was 3.39 again her workup for pulmonary embolism was negative. Influenza screen was positive for influenza A. Patient was reevaluated today on 01/11/2018, remains on mechanical ventilation, patient had her sedation on hold earlier this morning, but she became tachypneic , tachycardic, hypertensive, and not appropriate, restless, agitated, hence patient was placed back on propofol drip. Her ventilator settings are basically about the same, increased her tidal volume to 500. ABG showed a pO2 of 63 pCO2 of 47 pH of 7.34 and this is on a 50% FiO2 and PEEP of 5. CBC showed leukocytosis with WBC count of 13.3 hemoglobin is 11.7. Basic metabolic profile is relatively normal, BUN and creatinine are improved with creatinine of 1.18. It was 1.40 yesterday. Chest x-ray showed right lower lobe mass, pneumonic process also noted in the right lower lobe, and a small left pleural effusion also noted. Her WBC count today is improved compared to the WBC count on admission which was over 25,000. Airway mechanics on mechanical ventilation seem to be normal with rectal pressures in the range of 15, peak airway pressure is about 27. Patient was reevaluated today on 01/12/2018, remains on mechanical ventilation, same ventilator settings with FiO2 at 50%, her airway mechanics are reasonable, peak airway pressure is in the 24 range, plateau pressures are in the range of 15, static compliance is in the range of 50. ml/cm h2o, ABG showed a pO2 of 80 pCO2 of 46 pH of 7.32. Chest x-ray continues to show a right lower lobe mass and right lower lobe infiltrate. Slightly improved compared to admission chest x-ray. Tip of the PICC line is noted to be in the right atrium. Labs were reviewed she had a WBC count of 6.4 hemoglobin is 10.9. Basic metabolic profile and renal profile seems to be normal. However patient tested positive for C. difficile colitis, and I went ahead and started the patient on Flagyl via nasogastric tube 500 mg 3 times a day. Patient was given a sedation holiday earlier today, however she became extremely agitated, restless, blood pressure went up, she was tachypneic, tachycardic, and was not following any instructions. Patient was more or less obtunded. Hence patient was placed back on propofol, and she is sedated again. Objective - Vital Signs Vital signs: Vital Signs Temp 98 F 01/12/18 04:00 Pulse 82 01/12/18 11:00 Resp 23 01/12/18 11:00 BP 121/55 01/12/18 11:00 Pulse Ox 95 01/12/18 11:00 Intake & Output 01/11/18 01/12/18 01/12/18 18:59 06:59 18:59 Intake Total 3007.827 3052.813 876.2 Output Total 370 521 162 Balance 2637.827 2531.813 714.2 Weight 95.7 kg Intake: IV 1200 1100 500 Sodium Chloride 0.9% 1, 1200 1100 500 000 ml @ 100 mls/hr IV . Q10H [facility] Rx#:[id number] Intake, IV Titration 1854.588 3711.813 106.2 Amount Norepinephrin 16 mg-0.9% 22.813 Ns Pmx 16 mg In 250 ml @ Titrate IV .Q0M [facility] Rx#: [id number] Norepinephrin 4 mg-0.9% 41.687 Ns Pmx 4 mg In 250 ml @ Titrate IV .Q0M [facility] Rx#: [id number] Propofol 1,000 mg In 186.140 200 106.2 Empty Bag 1 bag @ Titrate IV .Q0M [facility] Rx#: [id number] Sodium Chloride 0.9% 1, 1000 000 ml @ 999 mls/hr IV . Q1H1M [facility] Rx#:[id number] Sodium Chloride 0.9% 1, 1000 000 ml @ 999 mls/hr IV . Q1H1M [facility] Rx#:[id number] Tube Feeding 520 640 240 Other 60 90 30 Output: Urine 370 421 162 Stool 100 Other: Voiding Method Indwelling Catheter Indwelling Catheter Indwelling Catheter # Bowel Movements 1 - Exam Physical Exam: Revealed a 72-year-old female, intubated, on mechanical ventilation, in no distress, fully sedated. HEENT:[Neck is supple.] [No neck masses.] [No thyromegaly.] [No JVD.] Endotracheal tube is intact, moist mucous membranes were noted. No neck masses , no JVD was appreciated. Chest: [Crackles at the bases bilaterally, especially at the right base, no rhonchi, no wheezes were appreciated. Symmetrical chest expansion was noted..] Cardiac Exam: [Normal S1 and S2, no S3 gallop, no murmur.] Abdomen: [Obese, Soft, nontender, no megaly, no rebound, no guarding, normal bowel sounds.] Extremities: [Evidence of chronic lymphedema, and resolving cellulitis from the left lower extremity was noted.] Neurological Exam: Not be assessed, patient is fully sedated, on mechanical ventilation. Psychiatric: Cannot be assessed. Lymphatics: No lymphadenopathy was appreciated. - Labs CBC & Chem 7: 01/12/18 03:39 01/12/18 03:39 Labs: Abnormal Lab Results - Last 24 Hours (Table) 01/11/18 01/11/18 01/11/18 Range/Units 11:57 18:16 23:54 Hgb (11.4-16.0) gm/dL MCHC (31.0-37.0) g/dL RDW (11.5-15.5) % Plt Count (150-450) k/uL Lymphocytes # (1.0-4.8) k/uL ABG pH (7.35-7.45) ABG pCO2 (35-45) mmHg ABG pO2 (83-108) mmHg ABG Total CO2 (19-24) mmol/L Chloride (98-107) mmol/L Carbon Dioxide (22-30) mmol/L BUN (7-17) mg/dL Glucose (74-99) mg/dL POC Glucose (mg/dL) 125 H 147 H 174 H (75-99) mg/dL Calcium (8.4-10.2) mg/dL Magnesium (1.6-2.3) mg/dL Total Protein (6.3-8.2) g/dL Albumin (3.5-5.0) g/dL C. difficile (EIA) Intrp (Negative) 01/12/18 01/12/18 01/12/18 Range/Units 03:39 03:39 03:45 Hgb 10.9 L (11.4-16.0) gm/dL MCHC 28.1 L (31.0-37.0) g/dL RDW 16.0 H (11.5-15.5) % Plt Count 124 L (150-450) k/uL Lymphocytes # 0.3 L (1.0-4.8) k/uL ABG pH (7.35-7.45) ABG pCO2 (35-45) mmHg ABG pO2 (83-108) mmHg ABG Total CO2 (19-24) mmol/L Chloride 110 H (98-107) mmol/L Carbon Dioxide 21 L (22-30) mmol/L BUN 29 H (7-17) mg/dL Glucose 163 H (74-99) mg/dL POC Glucose (mg/dL) (75-99) mg/dL Calcium 7.6 L (8.4-10.2) mg/dL Magnesium 2.4 H (1.6-2.3) mg/dL Total Protein 4.6 L (6.3-8.2) g/dL Albumin 2.2 L (3.5-5.0) g/dL C. difficile (EIA) Intrp Positive A (Negative) 01/12/18 01/12/18 Range/Units 06:08 08:14 Hgb (11.4-16.0) gm/dL MCHC (31.0-37.0) g/dL RDW (11.5-15.5) % Plt Count (150-450) k/uL Lymphocytes # (1.0-4.8) k/uL ABG pH 7.32 L (7.35-7.45) ABG pCO2 46 H (35-45) mmHg ABG pO2 80 L (83-108) mmHg ABG Total CO2 25 H (19-24) mmol/L Chloride (98-107) mmol/L Carbon Dioxide (22-30) mmol/L BUN (7-17) mg/dL Glucose (74-99) mg/dL POC Glucose (mg/dL) 171 H (75-99) mg/dL Calcium (8.4-10.2) mg/dL Magnesium (1.6-2.3) mg/dL Total Protein (6.3-8.2) g/dL Albumin (3.5-5.0) g/dL C. difficile (EIA) Intrp (Negative) Microbiology - Last 24 Hours (Table) 01/10/18 20:15 Gram Stain - Preliminary Sputum Assessment and Plan Assessment: Impression: 1 acute hypoxic and hypercapnic respiratory failure secondary to acute exacerbation of COPD, triggered by influenza A, right lower lobe pneumonia is strongly suspected, community-acquired, and sepsis. 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 3 left breast nodule likely malignant unless proven otherwise seen on CT of the chest. This was confirmed by physical examination today. 4 acute sepsis and septic shock requiring norepinephrine in spite of of fluid boluses upon presentation. Today the patient is off norepinephrine. And seems to be hemodynamically stable. 5 acute right lower lobe pneumonia, community-acquired 6 acute exacerbation of COPD, patient is known to have history of COPD and prednisone dependenton her history. 7 history of congestive heart failure, not clear whether systolic or diastolic based on the history. Ejection fraction is presently unknown. 8 acute C. difficile colitis, started on Flagyl. Recommendation: Continue present supportive care measures including mechanical ventilation, blood pressure support, nutritional support, hemodynamic support, antibiotics, bronchodilators, steroids, steroids, workup of her underlying lung mass could be done on outpatient basis once the patient improves and extubated. Prognosis is presently poor and guarded. PICC line was placed yesterday, had a long discussion with the family yesterday regarding her condition, patient remains full code, family updated on her prognosis and poor prognostic picture. We will continue to follow. Critical care time is 40 minutes. Time with Patient: Greater than 30
[2018-01-12] MEDS: LEVOFLOXACIN 750MG-D5W PMX 750 MG in DEXTROSE/WATER 1 150ML.BAG IVPB SCH (13:12)
--- NOTE | 2018-01-12 16:48 | P.PN ---
Subjective Patient was admitted secondary to influenza tracheobronchitis and COPD exacerbation patient admits intubated patient has poor residual lung function. Normal uses 2.5 L of onset at home. Patient remains on the ventilator without any improvement in her respiratory status. Patient is still on low dose of norepinephrine. On high-dose of the sedation. 01/12/2018 No overnight events had clinical condition remains the same remains on 1 mcg of levo fed remains on high-dose of propofol Objective - Vital Signs Vital signs: Vital Signs Temp 98 F 01/12/18 04:00 Pulse 80 01/12/18 15:49 Resp 24 01/12/18 15:00 BP 107/54 01/12/18 15:00 Pulse Ox 95 01/12/18 15:00 Intake & Output 01/11/18 01/12/18 01/12/18 18:59 06:59 18:59 Intake Total 3007.827 3052.813 1552.8 Output Total 370 521 258 Balance 2637.827 2531.813 1294.8 Weight 95.7 kg 96.7 kg Intake: IV 1200 1100 800 Sodium Chloride 0.9% 1, 1200 1100 800 000 ml @ 100 mls/hr IV . Q10H [facility] Rx#:[id number] Intake, IV Titration 9704.924 8185.813 332.8 Amount Levofloxacin 750Mg-D5w 150 Pmx 750 mg In Dextrose/ Water 1 150ml.bag @ 100 mls/hr IVPB Q24H [facility] Rx#: [id number] Norepinephrin 16 mg-0.9% 22.813 Ns Pmx 16 mg In 250 ml @ Titrate IV .Q0M [facility] Rx#: [id number] Norepinephrin 4 mg-0.9% 41.687 Ns Pmx 4 mg In 250 ml @ Titrate IV .Q0M [facility] Rx#: [id number] Propofol 1,000 mg In 186.140 200 182.8 Empty Bag 1 bag @ Titrate IV .Q0M [facility] Rx#: [id number] Sodium Chloride 0.9% 1, 1000 000 ml @ 999 mls/hr IV . Q1H1M [facility] Rx#:[id number] Sodium Chloride 0.9% 1, 1000 000 ml @ 999 mls/hr IV . Q1H1M [facility] Rx#:[id number] Tube Feeding 520 640 360 Other 60 90 60 Output: Urine 370 421 258 Stool 100 Other: Voiding Method Indwelling Catheter Indwelling Catheter Indwelling Catheter # Bowel Movements 1 - Exam PHYSICAL EXAMINATION: GENERAL: Patient is intubated sedated, on levo fed assist-control ventilation HEENT: Pupils are round and equally reacting to light. EOMI. No scleral icterus. No conjunctival pallor. Normocephalic, atraumatic. No pharyngeal erythema. No thyromegaly. CARDIOVASCULAR: S1 and S2 present. No murmurs, rubs, or gallops. PULMONARY: Diffuse wheezing bilaterally ABDOMEN: Soft, nontender, nondistended, normoactive bowel sounds. No palpable organomegaly. MUSCULOSKELETAL: No joint swelling or deformity. EXTREMITIES: No cyanosis, clubbing, or pedal edema. NEUROLOGICAL: Unable to assess SKIN: No rashes. - Labs CBC & Chem 7: 01/12/18 03:39 01/12/18 03:39 Labs: Abnormal Lab Results - Last 24 Hours (Table) 01/11/18 01/11/18 01/12/18 Range/Units 18:16 23:54 03:39 Hgb 10.9 L (11.4-16.0) gm/dL MCHC 28.1 L (31.0-37.0) g/dL RDW 16.0 H (11.5-15.5) % Plt Count 124 L (150-450) k/uL Lymphocytes # 0.3 L (1.0-4.8) k/uL ABG pH (7.35-7.45) ABG pCO2 (35-45) mmHg ABG pO2 (83-108) mmHg ABG Total CO2 (19-24) mmol/L Chloride (98-107) mmol/L Carbon Dioxide (22-30) mmol/L BUN (7-17) mg/dL Glucose (74-99) mg/dL POC Glucose (mg/dL) 147 H 174 H (75-99) mg/dL Calcium (8.4-10.2) mg/dL Magnesium (1.6-2.3) mg/dL Total Protein (6.3-8.2) g/dL Albumin (3.5-5.0) g/dL C. difficile (EIA) Intrp (Negative) 01/12/18 01/12/18 01/12/18 Range/Units 03:39 03:45 06:08 Hgb (11.4-16.0) gm/dL MCHC (31.0-37.0) g/dL RDW (11.5-15.5) % Plt Count (150-450) k/uL Lymphocytes # (1.0-4.8) k/uL ABG pH (7.35-7.45) ABG pCO2 (35-45) mmHg ABG pO2 (83-108) mmHg ABG Total CO2 (19-24) mmol/L Chloride 110 H (98-107) mmol/L Carbon Dioxide 21 L (22-30) mmol/L BUN 29 H (7-17) mg/dL Glucose 163 H (74-99) mg/dL POC Glucose (mg/dL) 171 H (75-99) mg/dL Calcium 7.6 L (8.4-10.2) mg/dL Magnesium 2.4 H (1.6-2.3) mg/dL Total Protein 4.6 L (6.3-8.2) g/dL Albumin 2.2 L (3.5-5.0) g/dL C. difficile (EIA) Intrp Positive A (Negative) 01/12/18 01/12/18 Range/Units 08:14 11:19 Hgb (11.4-16.0) gm/dL MCHC (31.0-37.0) g/dL RDW (11.5-15.5) % Plt Count (150-450) k/uL Lymphocytes # (1.0-4.8) k/uL ABG pH 7.32 L (7.35-7.45) ABG pCO2 46 H (35-45) mmHg ABG pO2 80 L (83-108) mmHg ABG Total CO2 25 H (19-24) mmol/L Chloride (98-107) mmol/L Carbon Dioxide (22-30) mmol/L BUN (7-17) mg/dL Glucose (74-99) mg/dL POC Glucose (mg/dL) 149 H (75-99) mg/dL Calcium (8.4-10.2) mg/dL Magnesium (1.6-2.3) mg/dL Total Protein (6.3-8.2) g/dL Albumin (3.5-5.0) g/dL C. difficile (EIA) Intrp (Negative) Microbiology - Last 24 Hours (Table) 01/10/18 20:15 Gram Stain - Preliminary Sputum Sputum Culture - Preliminary Mariah albicans Assessment and Plan Plan: -Septic shock: Secondary to influenza A infection continue with IV fluids, Lasix was discontinued Continue ventilator support and wean off as tolerated. -Acute hypercapnic respiratory failure: Secondary to COPD exacerbation which is precipitated by influenza. Patient does not appear to have any pneumonia does have atelectasis and a masslike lesion in the right lower lobe. Patient is on levofloxacin at this time was started by renewable energy project manager Leukocytosis: Secondary to sepsis -Elevated d-dimer without any evidence of PE -Acute renal failure secondary to septic shock continue with IV fluids Discussed with family members regarding her overall goals of care considering lung lesions highly concerning for malignancy and her for basal pulmonary status patient is more appropriate for comfort care terminal wean.
[2018-01-12 17:48] LABS: Glucose,Whole Blood 152 mg/dL (75-99)
[2018-01-12] MEDS ORDERED: ADENOSINE 3 MG/ML 2 ML VIAL IVP ONE ×2 (23:10→23:11)
[2018-01-12] MEDS ORDERED: DILTIAZEM 5 MG/ML 5 ML VIAL IVP STA (23:21)
[2018-01-12] MEDS ORDERED: ADENOSINE 3 MG/ML 2 ML VIAL IVP STA (23:23)
[2018-01-12] MEDS: DILTIAZEM 125 MG in SODIUM CHLORIDE 0.9% 100 ML IV SCH (23:37)
[2018-01-12 23:52] LABS: Glucose,Whole Blood 189 mg/dL (75-99)
[2018-01-13] MEDS: INSULIN ASPART 100 UNIT/ML 1 ML 10 ML VIAL SQ SCH ×4 (00:09→17:40)
[2018-01-13] MEDS: PROPOFOL 1,000 MG in EMPTY BAG 1 BAG IV SCH ×6 (01:00→22:41)
[2018-01-13] MEDS: SODIUM CHLORIDE 0.9% 1,000 ML IV SCH ×3 (03:15→23:12)
[2018-01-13 05:05] LABS: Anisocytosis Slight; Basophils % (A) 0 %; Eosinophils % (A) 0 %; HCT 38.4 % (34.0-46.0); HGB 10.8 gm/dL (11.4-16.0); Hypochromasia Marked; Lymphocytes # (A) 0.3 k/uL (1.0-4.8); Lymphocytes % (A) 4 %; MCH 26.5 pg (25.0-35.0); MCHC 28.1 g/dL (31.0-37.0); MCV 94.6 fL (80.0-100.0); Monocytes # (A) 0.3 k/uL (0-1.0); Monocytes % (A) 4 %; Neutrophils # (A) 6.7 k/uL (1.3-7.7); Neutrophils % (A) 90 %; Platelet Count 126 k/uL (150-450); RBC 4.06 m/uL (3.80-5.40); RDW 16.1 % (11.5-15.5); WBC 7.5 k/uL (3.8-10.6)
[2018-01-13 05:18] LABS: ALT 128 U/L (9-52); AST 161 U/L (14-36); Albumin 2.3 g/dL (3.5-5.0); Alkaline Phosphatase 112 U/L (38-126); Anion Gap 4 mmol/L; Blood Urea Nitrogen 35 mg/dL (7-17); Calcium 8.1 mg/dL (8.4-10.2); Carbon Dioxide 24 mmol/L (22-30); Chloride 110 mmol/L (98-107); Glucose 206 mg/dL (74-99); Magnesium 2.7 mg/dL (1.6-2.3); Phosphorus 3.6 mg/dL (2.5-4.5); Potassium 5.3 mmol/L (3.5-5.1); Sodium 138 mmol/L (137-145); Total Bilirubin 0.2 mg/dL (0.2-1.3); Total Protein 4.6 g/dL (6.3-8.2)
[2018-01-13 05:36] LABS: Glucose,Whole Blood 206 mg/dL (75-99)
[2018-01-13] MEDS: methylPREDNISolone SOD SUCCI 125 MG/2 ML VIAL IV SCH ×4 (05:37→23:04)
[2018-01-13] MEDS: IPRATROPIUM-ALBUTEROL 3 ML NEB INHALATION PRN ×3 (07:20→18:51)
[2018-01-13] MEDS: BUDESONIDE 0.5 MG/2 ML NEBU INHALATION SCH ×2 (07:20→18:51)
[2018-01-13] MEDS: FORMOTEROL FUMARATE 20 MCG/2 ML NEBU INHALATION SCH ×2 (07:20→18:51)
[2018-01-13] MEDS: CHLORHEXIDINE GLUCONATE 15 ML CUP MUCOUS MEM SCH ×2 (08:07→20:16)
[2018-01-13] MEDS: metroNIDAZOLE 500 MG TAB PO SCH ×3 (08:07→22:49)
[2018-01-13] MEDS: FAMOTIDINE 20 MG/2 ML VIAL IV SCH (08:07)
[2018-01-13] MEDS: HEPARIN SODIUM,PORCINE 5,000 UNIT/ML 1 ML VIAL SQ SCH ×2 (08:07→20:16)
[2018-01-13] MEDS: OSELTAMIVIR 60 MG/10 ML ORAL SYRINGE PO SCH ×2 (08:07→20:17)
--- NOTE | 2018-01-13 08:10 | XR ---
EXAMINATION TYPE: XR chest 1V portable DATE OF EXAM: 01/13/2018 COMPARISON: Prior chest x-ray 01/12/2018 HISTORY: Lung mass, intubated TECHNIQUE: Single frontal view of the chest is obtained. FINDINGS: Findings are stable. IMPRESSION: Stable abnormal exam. Correlate for pneumonia versus basilar atelectasis. Lung mass.
[2018-01-13 08:31] LABS: ABG Base Excess -2.8 mmol/L; ABG HCO3 23 mmol/L (21-25); ABG Oxygen Saturation 93.8 % (94-97); ABG PCO2 46 mmHg (35-45); ABG PH 7.31 (7.35-7.45); ABG PO2 73 mmHg (83-108); ABG TCO2 25 mmol/L (19-24)
[2018-01-13] MEDS: HYDROmorphone 0.5 MG/0.5 ML SYRINGE IVP PRN (08:45)
[2018-01-13] MEDS: METOPROLOL TARTRATE 25 MG TAB PO SCH ×2 (09:21→20:16)
--- NOTE | 2018-01-13 10:08 | CONS ---
CONSULTATION DATE OF SERVICE: 01/13/2017. REASON FOR CONSULTATION: Paroxysmal atrial fibrillation. HISTORY: Ms. Amaro is a 72-year-old lady with recurrent hospitalization for sepsis early in December and now again transferred from [facility] with influenza A, history of diastolic heart failure and COPD with increasing shortness of breath. She was placed initially on BiPAP because of continuing deterioration, placed on a mechanical ventilator. While she was here on a vent, she developed a run of atrial fibrillation with rapid ventricular rate last night. Dr. Rosa was on-call. He gave her a Cardizem bolus and drip and she converted to sinus rhythm and she remains in sinus rhythm this morning. She is intubated and sedated, I cannot obtain any meaningful history from this patient. She also had a workup for pulmonary embolism because of elevated D-dimer and the CT angiography was negative. PAST MEDICAL HISTORY: COPD with recurrent hospitalizations with pneumonia and diastolic heart failure. 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 SOCIAL HISTORY: According to the chart, patient is a former smoker. MEDICATIONS: At home include Lasix, Pulmicort inhaler, albuterol inhaler, Kefzol, and prednisone tapering doses. ALLERGIES: PENICILLIN. The patient is on a on a ventilator, intubated, sedated, not much communication with her. She is on a small dose of Levophed for blood pressure support. Last blood pressure was about 110 systolic. Pulse rate about 70, sinus. HEENT, limited exam was performed. Neck is supple. Cannot appreciate JVD. Heart exam reveals S1, S2 with distant heart sounds. No significant murmur. Lungs revealed bilateral scattered rhonchi. Abdomen is soft, nontender. Lower extremities reveal diminished pulses. Central nervous system assessment was not performed. Her EKG reviewed, suggests atrial fib rapid rate. Rhythm strips reveal sinus rhythm. IMPRESSION: 1. Paroxysmal atrial fibrillation. 2. Respiratory failure with influenza A sepsis, on a ventilator. 3. Chronic obstructive pulmonary disease with exacerbation. 4. History of diastolic heart failure. RECOMMENDATIONS: I am recommending that we add a small dose of beta moriah through NG tube for her. Continue her other medications and management. She may require long-term anticoagulation, but for now since this happened in an acute setting with respiratory failure and influenza, we will treat her with subcutaneous heparin and see how she does. If she has a recurrence of atrial fibrillation, we will anticoagulate her fully. Her hemoglobin is 10.8 and platelet count is 126. Her LV function by echo revealed normal systolic function earlier this month. JC / SUSAN: [id number] /
[2018-01-13] MEDS: NOREPINEPHRIN 16 MG-0.9%NS PMX 16 MG/250 ML ML IV SCH (11:15)
[2018-01-13 11:31] LABS: Glucose,Whole Blood 169 mg/dL (75-99)
[2018-01-13] MEDS: DILTIAZEM 125 MG in SODIUM CHLORIDE 0.9% 100 ML IV SCH (12:18)
[2018-01-13] MEDS: LEVOFLOXACIN 750MG-D5W PMX 750 MG in DEXTROSE/WATER 1 150ML.BAG IVPB SCH (12:19)
--- NOTE | 2018-01-13 14:03 | P.PN ---
Subjective Progress Note Date: 01/13/18 Principal diagnosis: Acute hypoxic and hypercapnic respiratory failure secondary to COPD, influenza A , right lower lobe pneumonia. This is a 72-year-old female with history of congestive heart failure, COPD, started having increased shortness of breath around 5 PM yesterday. Patient was noted noted by the ER physician in [place] as having struggled to breathe. She was initially placed on BiPAP, but apparently Deteriorating, and ended up intubated and placed on mechanical ventilation. Patient was transferred to our emergency room, evaluated briefly in the ER, and admitted to the ICU. Patient apparently had what seemed to be a picture of hypoxic and hypercapnic respiratory failure with positive influenza A screening, CT of the chest upon admission showed no evidence of pulmonary embolism, but there was a 4 cm spiculated mass in the right lower lobe abutting the pleural surface, and there is also some consolidation and pneumonic process in the right lower lobe. There was also evidence of the 2 cm left breast mass and a 14 mm nodule in the left lung base. On the mediastinal windows there was evidence of right hilar lymphadenopathy suspicious for deisy metastasis. Upon my evaluation, the patient was noted to be on mechanical ventilation, no family members available at bedside, and most of the information was obtained from the chart from [facility], and from our ER. Labs were reviewed her ABG showed a pO2 of 80 pCO2 of 49 pH of 7.32. Ventilator settings were basically unchanged. Troponin was noted to be a bit elevated at 0.173, doubt clinical significance. WBC count was 25.6 hemoglobin 11.8. D-dimer was 3.39 again her workup for pulmonary embolism was negative. Influenza screen was positive for influenza A. Patient was reevaluated today on 01/11/2018, remains on mechanical ventilation, patient had her sedation on hold earlier this morning, but she became tachypneic , tachycardic, hypertensive, and not appropriate, restless, agitated, hence patient was placed back on propofol drip. Her ventilator settings are basically about the same, increased her tidal volume to 500. ABG showed a pO2 of 63 pCO2 of 47 pH of 7.34 and this is on a 50% FiO2 and PEEP of 5. CBC showed leukocytosis with WBC count of 13.3 hemoglobin is 11.7. Basic metabolic profile is relatively normal, BUN and creatinine are improved with creatinine of 1.18. It was 1.40 yesterday. Chest x-ray showed right lower lobe mass, pneumonic process also noted in the right lower lobe, and a small left pleural effusion also noted. Her WBC count today is improved compared to the WBC count on admission which was over 25,000. Airway mechanics on mechanical ventilation seem to be normal with rectal pressures in the range of 15, peak airway pressure is about 27. Patient was reevaluated today on 01/12/2018, remains on mechanical ventilation, same ventilator settings with FiO2 at 50%, her airway mechanics are reasonable, peak airway pressure is in the 24 range, plateau pressures are in the range of 15, static compliance is in the range of 50. ml/cm h2o, ABG showed a pO2 of 80 pCO2 of 46 pH of 7.32. Chest x-ray continues to show a right lower lobe mass and right lower lobe infiltrate. Slightly improved compared to admission chest x-ray. Tip of the PICC line is noted to be in the right atrium. Labs were reviewed she had a WBC count of 6.4 hemoglobin is 10.9. Basic metabolic profile and renal profile seems to be normal. However patient tested positive for C. difficile colitis, and I went ahead and started the patient on Flagyl via nasogastric tube 500 mg 3 times a day. Patient was given a sedation holiday earlier today, however she became extremely agitated, restless, blood pressure went up, she was tachypneic, tachycardic, and was not following any instructions. Patient was more or less obtunded. Hence patient was placed back on propofol, and she is sedated again. Patient was reevaluated today on 01/13/2018, remains on mechanical ventilation with the same vent settings, remains on FiO2 of 50%, airway mechanics are basically about the same, plateau pressures are in the range of 20, static compliance is in the range of 50. Patient had atrial fibrillation and RVR, placed on Cardizem drip last night, but now she is off the Cardizem, and she was placed on beta blockers. Chest x-ray is about the same. ABG this morning showed a pO2 of 73 pCO2 of 46 pH of 7.31. Basic metabolic profile is relatively normal, BUN is 35 creatinine is 0.90. Patient is back on a small dose of levo fed, presently on 1 g of levo fed, and she is still on antibiotics , bronchodilators, steroids, etc. receiving nutritional support via nasogastric tube. Drains on GI and DVT prophylaxis. No family members available at bedside today. Objective - Vital Signs Vital signs: Vital Signs Temp 98.5 F 01/13/18 12:00 Pulse 55 L 01/13/18 13:00 Resp 23 01/13/18 13:00 BP 96/48 01/13/18 13:00 Pulse Ox 96 01/13/18 13:00 Intake & Output 01/12/18 01/13/18 01/13/18 18:59 06:59 18:59 Intake Total 2312.8 2156.170 619.598 Output Total 453 742 120 Balance 1859.8 1414.170 499.598 Weight 96.7 kg 98 kg Intake: IV 1300 1200 400 Sodium Chloride 0.9% 1, 1300 1200 400 000 ml @ 100 mls/hr IV . Q10H SUNG Rx#:[id number] Intake, IV Titration 432.8 450.170 85.598 Amount Diltiazem 125 mg In 32.917 Sodium Chloride 0.9% 100 ml @ 10 MG/HR 10 mls/hr IV .[id number] SUNG Rx#: [id number] Levofloxacin 750Mg-D5w 150 Pmx 750 mg In Dextrose/ Water 1 150ml.bag @ 100 mls/hr IVPB Q24H SUNG Rx#: [id number] Norepinephrin 16 mg-0.9% 35.185 0 Ns Pmx 16 mg In 250 ml @ Titrate IV .Q0M SUNG Rx#: [id number] Propofol 1,000 mg In 282.8 382.068 85.598 Empty Bag 1 bag @ Titrate IV .Q0M SUNG Rx#: [id number] Tube Feeding 490 416 104 Other 90 90 30 Output: Urine 453 442 120 Stool 300 Other: Voiding Method Indwelling Catheter Indwelling Catheter Indwelling Catheter - Exam Physical Exam: Revealed a 72-year-old female, intubated, on mechanical ventilation, in no distress, fully sedated. HEENT:[Neck is supple.] [No neck masses.] [No thyromegaly.] [No JVD.] Endotracheal tube is intact, moist mucous membranes were noted. No neck masses , no JVD was appreciated. Chest: [Crackles at the bases bilaterally, especially at the right base, no rhonchi, no wheezes were appreciated. Symmetrical chest expansion was noted..] Cardiac Exam: [Normal S1 and S2, no S3 gallop, no murmur.] Abdomen: [Obese, Soft, nontender, no megaly, no rebound, no guarding, normal bowel sounds.] Extremities: [Evidence of chronic lymphedema, and resolving cellulitis from the left lower extremity was noted.] Neurological Exam: Not be assessed, patient is fully sedated, on mechanical ventilation. Psychiatric: Cannot be assessed. Lymphatics: No lymphadenopathy was appreciated. - Labs CBC & Chem 7: 01/13/18 04:33 01/13/18 04:33 Labs: Abnormal Lab Results - Last 24 Hours (Table) 01/12/18 01/12/18 01/13/18 Range/Units 17:46 23:50 04:33 Hgb 10.8 L (11.4-16.0) gm/dL MCHC 28.1 L (31.0-37.0) g/dL RDW 16.1 H (11.5-15.5) % Plt Count 126 L (150-450) k/uL Lymphocytes # 0.3 L (1.0-4.8) k/uL ABG pH (7.35-7.45) ABG pCO2 (35-45) mmHg ABG pO2 (83-108) mmHg ABG Total CO2 (19-24) mmol/L ABG O2 Saturation (94-97) % Potassium (3.5-5.1) mmol/L Chloride (98-107) mmol/L BUN (7-17) mg/dL Glucose (74-99) mg/dL POC Glucose (mg/dL) 152 H 189 H (75-99) mg/dL Calcium (8.4-10.2) mg/dL Magnesium (1.6-2.3) mg/dL AST (14-36) U/L ALT (9-52) U/L Total Protein (6.3-8.2) g/dL Albumin (3.5-5.0) g/dL 01/13/18 01/13/18 01/13/18 Range/Units 04:33 05:34 08:21 Hgb (11.4-16.0) gm/dL MCHC (31.0-37.0) g/dL RDW (11.5-15.5) % Plt Count (150-450) k/uL Lymphocytes # (1.0-4.8) k/uL ABG pH 7.31 L (7.35-7.45) ABG pCO2 46 H (35-45) mmHg ABG pO2 73 L (83-108) mmHg ABG Total CO2 25 H (19-24) mmol/L ABG O2 Saturation 93.8 L (94-97) % Potassium 5.3 H (3.5-5.1) mmol/L Chloride 110 H (98-107) mmol/L BUN 35 H (7-17) mg/dL Glucose 206 H (74-99) mg/dL POC Glucose (mg/dL) 206 H (75-99) mg/dL Calcium 8.1 L (8.4-10.2) mg/dL Magnesium 2.7 H (1.6-2.3) mg/dL AST 161 H (14-36) U/L ALT 128 H (9-52) U/L Total Protein 4.6 L (6.3-8.2) g/dL Albumin 2.3 L (3.5-5.0) g/dL 01/13/18 Range/Units 11:29 Hgb (11.4-16.0) gm/dL MCHC (31.0-37.0) g/dL RDW (11.5-15.5) % Plt Count (150-450) k/uL Lymphocytes # (1.0-4.8) k/uL ABG pH (7.35-7.45) ABG pCO2 (35-45) mmHg ABG pO2 (83-108) mmHg ABG Total CO2 (19-24) mmol/L ABG O2 Saturation (94-97) % Potassium (3.5-5.1) mmol/L Chloride (98-107) mmol/L BUN (7-17) mg/dL Glucose (74-99) mg/dL POC Glucose (mg/dL) 169 H (75-99) mg/dL Calcium (8.4-10.2) mg/dL Magnesium (1.6-2.3) mg/dL AST (14-36) U/L ALT (9-52) U/L Total Protein (6.3-8.2) g/dL Albumin (3.5-5.0) g/dL Microbiology - Last 24 Hours (Table) 01/10/18 20:15 Gram Stain - Final Sputum Sputum Culture - Final Mariah albicans Assessment and Plan Assessment: Impression: 1 acute hypoxic and hypercapnic respiratory failure secondary to acute exacerbation of COPD, triggered by influenza A, right lower lobe pneumonia is strongly suspected, community-acquired, and sepsis. 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 3 left breast nodule likely malignant unless proven otherwise seen on CT of the chest. This was confirmed by physical examination today. 4 acute sepsis and septic shock requiring norepinephrine in spite of of fluid boluses upon presentation. Today the patient is off norepinephrine. And seems to be hemodynamically stable. 5 acute right lower lobe pneumonia, community-acquired 6 acute exacerbation of COPD, patient is known to have history of COPD and prednisone dependenton her history. 7 history of congestive heart failure, not clear whether systolic or diastolic based on the history. Ejection fraction is presently unknown. 8 acute C. difficile colitis, started on Flagyl. Recommendation: Continue present supportive care measures including mechanical ventilation, blood pressure support, nutritional support, hemodynamic support, antibiotics, bronchodilators, steroids, workup of her underlying lung mass could be done on outpatient basis once the patient improves and extubated. Prognosis is presently poor and guarded. PICC line was placed 2 days ago, patient is not ready for any form of weaning at this point, we'll continue to follow closely. Critical care time is 35 minutes. Time with Patient: Greater than 30
--- NOTE | 2018-01-13 15:28 | P.PN ---
Subjective Patient was admitted secondary to influenza tracheobronchitis and COPD exacerbation patient admits intubated patient has poor residual lung function. Normal uses 2.5 L of onset at home. Patient remains on the ventilator without any improvement in her respiratory status. Patient is still on low dose of norepinephrine. On high-dose of the sedation. 01/12/2018 No overnight events had clinical condition remains the same remains on 1 mcg of levo fed remains on high-dose of propofol 01/13/2018 Patient went into atrial fibrillation was given a dose of Cardizem after which heart rate came down and patient is presently on metoprolol patient is also on norepinephrine at a very low-dose patient is found to have C. diff, levofloxacin will be discontinued patient was started on Rocephin although patient is ALLERGIC to penicillin as she is intubated we'll try Rocephin from tomorrow. Will discuss with pulmonology to see if he followed antibodies can be discontinued except for metronidazole which is being used for C. diff colitis. Objective - Vital Signs Vital signs: Vital Signs Temp 98.5 F 01/13/18 12:00 Pulse 55 L 01/13/18 14:00 Resp 24 01/13/18 14:00 BP 100/50 01/13/18 14:00 Pulse Ox 96 01/13/18 14:00 Intake & Output 01/12/18 01/13/18 01/13/18 18:59 06:59 18:59 Intake Total 2312.8 2156.170 1027.598 Output Total 453 742 200 Balance 1859.8 1414.170 827.598 Weight 96.7 kg 98 kg Intake: IV 1300 1200 700 Sodium Chloride 0.9% 1, 1300 1200 700 000 ml @ 100 mls/hr IV . Q10H SUNG Rx#:[id number] Intake, IV Titration 432.8 450.170 85.598 Amount Diltiazem 125 mg In 32.917 Sodium Chloride 0.9% 100 ml @ 10 MG/HR 10 mls/hr IV .[id number] SUNG Rx#: [id number] Levofloxacin 750Mg-D5w 150 Pmx 750 mg In Dextrose/ Water 1 150ml.bag @ 100 mls/hr IVPB Q24H SUNG Rx#: [id number] Norepinephrin 16 mg-0.9% 35.185 0 Ns Pmx 16 mg In 250 ml @ Titrate IV .Q0M SUNG Rx#: [id number] Propofol 1,000 mg In 282.8 382.068 85.598 Empty Bag 1 bag @ Titrate IV .Q0M SUNG Rx#: [id number] Tube Feeding 490 416 182 Other 90 90 60 Output: Urine 453 442 200 Stool 300 Other: Voiding Method Indwelling Catheter Indwelling Catheter Indwelling Catheter - Exam PHYSICAL EXAMINATION: GENERAL: Patient is intubated sedated, on levo fed assist-control ventilation HEENT: Pupils are round and equally reacting to light. EOMI. No scleral icterus. No conjunctival pallor. Normocephalic, atraumatic. No pharyngeal erythema. No thyromegaly. CARDIOVASCULAR: S1 and S2 present. No murmurs, rubs, or gallops. PULMONARY: Diffuse wheezing bilaterally ABDOMEN: Soft, nontender, nondistended, normoactive bowel sounds. No palpable organomegaly. MUSCULOSKELETAL: No joint swelling or deformity. EXTREMITIES: No cyanosis, clubbing, or pedal edema. NEUROLOGICAL: Unable to assess SKIN: No rashes. - Labs CBC & Chem 7: 01/13/18 04:33 01/13/18 04:33 Labs: Abnormal Lab Results - Last 24 Hours (Table) 01/12/18 01/12/18 01/13/18 Range/Units 17:46 23:50 04:33 Hgb 10.8 L (11.4-16.0) gm/dL MCHC 28.1 L (31.0-37.0) g/dL RDW 16.1 H (11.5-15.5) % Plt Count 126 L (150-450) k/uL Lymphocytes # 0.3 L (1.0-4.8) k/uL ABG pH (7.35-7.45) ABG pCO2 (35-45) mmHg ABG pO2 (83-108) mmHg ABG Total CO2 (19-24) mmol/L ABG O2 Saturation (94-97) % Potassium (3.5-5.1) mmol/L Chloride (98-107) mmol/L BUN (7-17) mg/dL Glucose (74-99) mg/dL POC Glucose (mg/dL) 152 H 189 H (75-99) mg/dL Calcium (8.4-10.2) mg/dL Magnesium (1.6-2.3) mg/dL AST (14-36) U/L ALT (9-52) U/L Total Protein (6.3-8.2) g/dL Albumin (3.5-5.0) g/dL 01/13/18 01/13/18 01/13/18 Range/Units 04:33 05:34 08:21 Hgb (11.4-16.0) gm/dL MCHC (31.0-37.0) g/dL RDW (11.5-15.5) % Plt Count (150-450) k/uL Lymphocytes # (1.0-4.8) k/uL ABG pH 7.31 L (7.35-7.45) ABG pCO2 46 H (35-45) mmHg ABG pO2 73 L (83-108) mmHg ABG Total CO2 25 H (19-24) mmol/L ABG O2 Saturation 93.8 L (94-97) % Potassium 5.3 H (3.5-5.1) mmol/L Chloride 110 H (98-107) mmol/L BUN 35 H (7-17) mg/dL Glucose 206 H (74-99) mg/dL POC Glucose (mg/dL) 206 H (75-99) mg/dL Calcium 8.1 L (8.4-10.2) mg/dL Magnesium 2.7 H (1.6-2.3) mg/dL AST 161 H (14-36) U/L ALT 128 H (9-52) U/L Total Protein 4.6 L (6.3-8.2) g/dL Albumin 2.3 L (3.5-5.0) g/dL 01/13/18 Range/Units 11:29 Hgb (11.4-16.0) gm/dL MCHC (31.0-37.0) g/dL RDW (11.5-15.5) % Plt Count (150-450) k/uL Lymphocytes # (1.0-4.8) k/uL ABG pH (7.35-7.45) ABG pCO2 (35-45) mmHg ABG pO2 (83-108) mmHg ABG Total CO2 (19-24) mmol/L ABG O2 Saturation (94-97) % Potassium (3.5-5.1) mmol/L Chloride (98-107) mmol/L BUN (7-17) mg/dL Glucose (74-99) mg/dL POC Glucose (mg/dL) 169 H (75-99) mg/dL Calcium (8.4-10.2) mg/dL Magnesium (1.6-2.3) mg/dL AST (14-36) U/L ALT (9-52) U/L Total Protein (6.3-8.2) g/dL Albumin (3.5-5.0) g/dL Microbiology - Last 24 Hours (Table) 01/10/18 20:15 Gram Stain - Final Sputum Sputum Culture - Final Mariah albicans Assessment and Plan Plan: -Septic shock: Secondary to influenza A infection continue with IV fluids, Lasix was discontinued Continue ventilator support and wean off as tolerated. -Acute hypercapnic respiratory failure: Secondary to COPD exacerbation which is precipitated by influenza. Patient does not appear to have any pneumonia does have atelectasis and a masslike lesion in the right lower lobe. Patient is on levofloxacin at this time was started by director social Clostridium difficile colitis: Patient is on metronidazole and levofloxacin is being discontinued patient was started on Rocephin -Elevated d-dimer without any evidence of PE -Acute renal failure secondary to septic shock continue with IV fluids Atrial fibrillation with rapid and regular rate, presently rate controlled patient is on metoprolol
[2018-01-13 17:37] LABS: Glucose,Whole Blood 184 mg/dL (75-99)
[2018-01-14 00:25] LABS: Glucose,Whole Blood 170 mg/dL (75-99)
[2018-01-14] MEDS: INSULIN ASPART 100 UNIT/ML 1 ML 10 ML VIAL SQ SCH ×4 (00:25→17:58)
[2018-01-14] MEDS: PROPOFOL 1,000 MG in EMPTY BAG 1 BAG IV SCH ×5 (01:33→20:34)
[2018-01-14 05:17] LABS: Basophils % (A) 0 %; Eosinophils % (A) 0 %; HCT 37.7 % (34.0-46.0); HGB 10.9 gm/dL (11.4-16.0); Hypochromasia Marked; Lymphocytes # (A) 0.4 k/uL (1.0-4.8); Lymphocytes % (A) 7 %; MCV 93.1 fL (80.0-100.0); Mean Platelet Volume 7.8; Monocytes # (A) 0.2 k/uL (0-1.0); Monocytes % (A) 3 %; Neutrophils # (A) 4.8 k/uL (1.3-7.7); Neutrophils % (A) 88 %; Platelet Count 125 k/uL (150-450); RBC 4.05 m/uL (3.80-5.40); RDW 15.8 % (11.5-15.5); WBC 5.5 k/uL (3.8-10.6)
[2018-01-14 05:27] LABS: ALT 79 U/L (9-52); AST 39 U/L (14-36); Albumin 2.2 g/dL (3.5-5.0); Alkaline Phosphatase 81 U/L (38-126); Anion Gap 3 mmol/L; Blood Urea Nitrogen 41 mg/dL (7-17); Calcium 7.8 mg/dL (8.4-10.2); Carbon Dioxide 25 mmol/L (22-30); Chloride 110 mmol/L (98-107); Glucose 181 mg/dL (74-99); Magnesium 2.7 mg/dL (1.6-2.3); Phosphorus 4.2 mg/dL (2.5-4.5); Sodium 138 mmol/L (137-145); Total Bilirubin 0.1 mg/dL (0.2-1.3); Total Protein 4.5 g/dL (6.3-8.2)
[2018-01-14 05:35] LABS: Potassium 5.6 mmol/L (3.5-5.1)
[2018-01-14] MEDS: methylPREDNISolone SOD SUCCI 125 MG/2 ML VIAL IV SCH ×4 (06:21→23:09)
[2018-01-14 06:28] LABS: Glucose,Whole Blood 161 mg/dL (75-99)
[2018-01-14] MEDS: BUDESONIDE 0.5 MG/2 ML NEBU INHALATION SCH ×2 (07:12→19:54)
[2018-01-14] MEDS: IPRATROPIUM-ALBUTEROL 3 ML NEB INHALATION PRN ×4 (07:12→19:54)
[2018-01-14] MEDS: FORMOTEROL FUMARATE 20 MCG/2 ML NEBU INHALATION SCH ×2 (07:12→19:54)
--- NOTE | 2018-01-14 07:33 | XR ---
EXAMINATION TYPE: XR chest 1V portable DATE OF EXAM: 01/14/2018 COMPARISON: 01/13/2018 HISTORY: Tube placement TECHNIQUE: Single frontal view of the chest is obtained. FINDINGS: ET and NG tubes stable. Right-sided lung mass suspected with bilateral infiltrate and smal l effusion. PICC line stable. Underlying COPD suspected. Heart size stable. Atherosclerotic change ao rta. IMPRESSION: Stable exam demonstrating bilateral infiltrate or atelectasis with small effusion and ri ght-sided lung mass.
[2018-01-14 08:27] LABS: ABG Base Excess -2.3 mmol/L; ABG HCO3 24 mmol/L (21-25); ABG Oxygen Saturation 95.2 % (94-97); ABG PCO2 45 mmHg (35-45); ABG PH 7.33 (7.35-7.45); ABG PO2 83 mmHg (83-108); ABG TCO2 25 mmol/L (19-24)
[2018-01-14] MEDS: DILTIAZEM 125 MG in SODIUM CHLORIDE 0.9% 100 ML IV SCH ×2 (08:42→13:26)
[2018-01-14] MEDS: CHLORHEXIDINE GLUCONATE 15 ML CUP MUCOUS MEM SCH ×2 (08:43→20:33)
[2018-01-14] MEDS: METOPROLOL TARTRATE 25 MG TAB PO SCH ×2 (08:43→20:33)
[2018-01-14] MEDS: metroNIDAZOLE 500 MG TAB PO SCH ×3 (08:43→23:05)
[2018-01-14] MEDS: HEPARIN SODIUM,PORCINE 5,000 UNIT/ML 1 ML VIAL SQ SCH ×2 (08:43→20:33)
[2018-01-14] MEDS: OSELTAMIVIR 60 MG/10 ML ORAL SYRINGE PO SCH (08:44)
[2018-01-14] MEDS: SODIUM CHLORIDE 0.9% 1,000 ML IV SCH ×2 (08:44→20:33)
[2018-01-14] MEDS: FAMOTIDINE 20 MG/2 ML VIAL IV SCH (08:45)
[2018-01-14] MEDS: cefTRIAXone IN SWFI 1,000 MG/10 ML SYRINGE IVP SCH (09:12)
[2018-01-14] MEDS: LORazepam 2 MG/ML INJ IV PRN (10:42)
--- NOTE | 2018-01-14 12:46 | P.PN ---
Subjective Progress Note Date: 01/14/18 Principal diagnosis: Acute hypoxic and hypercapnic respiratory failure secondary to COPD, influenza A , right lower lobe pneumonia. This is a 72-year-old female with history of congestive heart failure, COPD, started having increased shortness of breath around 5 PM yesterday. Patient was noted noted by the ER physician in [place] as having struggled to breathe. She was initially placed on BiPAP, but apparently Deteriorating, and ended up intubated and placed on mechanical ventilation. Patient was transferred to our emergency room, evaluated briefly in the ER, and admitted to the ICU. Patient apparently had what seemed to be a picture of hypoxic and hypercapnic respiratory failure with positive influenza A screening, CT of the chest upon admission showed no evidence of pulmonary embolism, but there was a 4 cm spiculated mass in the right lower lobe abutting the pleural surface, and there is also some consolidation and pneumonic process in the right lower lobe. There was also evidence of the 2 cm left breast mass and a 14 mm nodule in the left lung base. On the mediastinal windows there was evidence of right hilar lymphadenopathy suspicious for deisy metastasis. Upon my evaluation, the patient was noted to be on mechanical ventilation, no family members available at bedside, and most of the information was obtained from the chart from [facility], and from our ER. Labs were reviewed her ABG showed a pO2 of 80 pCO2 of 49 pH of 7.32. Ventilator settings were basically unchanged. Troponin was noted to be a bit elevated at 0.173, doubt clinical significance. WBC count was 25.6 hemoglobin 11.8. D-dimer was 3.39 again her workup for pulmonary embolism was negative. Influenza screen was positive for influenza A. Patient was reevaluated today on 01/11/2018, remains on mechanical ventilation, patient had her sedation on hold earlier this morning, but she became tachypneic , tachycardic, hypertensive, and not appropriate, restless, agitated, hence patient was placed back on propofol drip. Her ventilator settings are basically about the same, increased her tidal volume to 500. ABG showed a pO2 of 63 pCO2 of 47 pH of 7.34 and this is on a 50% FiO2 and PEEP of 5. CBC showed leukocytosis with WBC count of 13.3 hemoglobin is 11.7. Basic metabolic profile is relatively normal, BUN and creatinine are improved with creatinine of 1.18. It was 1.40 yesterday. Chest x-ray showed right lower lobe mass, pneumonic process also noted in the right lower lobe, and a small left pleural effusion also noted. Her WBC count today is improved compared to the WBC count on admission which was over 25,000. Airway mechanics on mechanical ventilation seem to be normal with rectal pressures in the range of 15, peak airway pressure is about 27. Patient was reevaluated today on 01/12/2018, remains on mechanical ventilation, same ventilator settings with FiO2 at 50%, her airway mechanics are reasonable, peak airway pressure is in the 24 range, plateau pressures are in the range of 15, static compliance is in the range of 50. ml/cm h2o, ABG showed a pO2 of 80 pCO2 of 46 pH of 7.32. Chest x-ray continues to show a right lower lobe mass and right lower lobe infiltrate. Slightly improved compared to admission chest x-ray. Tip of the PICC line is noted to be in the right atrium. Labs were reviewed she had a WBC count of 6.4 hemoglobin is 10.9. Basic metabolic profile and renal profile seems to be normal. However patient tested positive for C. difficile colitis, and I went ahead and started the patient on Flagyl via nasogastric tube 500 mg 3 times a day. Patient was given a sedation holiday earlier today, however she became extremely agitated, restless, blood pressure went up, she was tachypneic, tachycardic, and was not following any instructions. Patient was more or less obtunded. Hence patient was placed back on propofol, and she is sedated again. Patient was reevaluated today on 01/13/2018, remains on mechanical ventilation with the same vent settings, remains on FiO2 of 50%, airway mechanics are basically about the same, plateau pressures are in the range of 20, static compliance is in the range of 50. Patient had atrial fibrillation and RVR, placed on Cardizem drip last night, but now she is off the Cardizem, and she was placed on beta blockers. Chest x-ray is about the same. ABG this morning showed a pO2 of 73 pCO2 of 46 pH of 7.31. Basic metabolic profile is relatively normal, BUN is 35 creatinine is 0.90. Patient is back on a small dose of levo fed, presently on 1 g of levo fed, and she is still on antibiotics , bronchodilators, steroids, etc. receiving nutritional support via nasogastric tube. Drains on GI and DVT prophylaxis. No family members available at bedside today. Reevaluated today on 01/14/2018, patient remains about the same, ventilator settings were changed, I have increased her respiratory rate up to 24, still on 50% FiO2, and PEEP of 8. Patient seems to be hemodynamically stable. Not requiring any antiarrhythmic agents intravenously, and not requiring any norepinephrine at this point. She will be given a sedation holiday today, however I strongly doubt the patient is anywhere near ready to be weaned at this point. Chest x-ray continues to demonstrate a right lower lobe mass, and atelectasis with a small right-sided pleural effusion and tiny left pleural effusion. ABG this morning showed a pO2 of 83 pCO2 of 45 pH of 7.33, CBC is relatively normal with a hemoglobin of 10.9. Potassium is 5.6 bicarb is 25. BUN is 41 creatinine is 0.78. Liver enzymes are borderline elevated. Airway mechanics were noted, patient continues to have a static compliance in the range of 50. Objective - Vital Signs Vital signs: Vital Signs Temp 98.2 F 01/14/18 08:00 Pulse 66 01/14/18 11:41 Resp 25 H 01/14/18 11:00 BP 141/61 01/14/18 11:00 Pulse Ox 95 01/14/18 11:00 Intake & Output 01/13/18 01/14/18 01/14/18 18:59 06:59 18:59 Intake Total 5849.936 6640.696 1004 Output Total 356 575 400 Balance 7533.253 6268.696 604 Weight 98.7 kg 98.7 kg Intake: IV 1200 1200 900 Sodium Chloride 0.9% 1, 1200 1200 900 000 ml @ 100 mls/hr IV . Q10H SUNG Rx#:[id number] Intake, IV Titration 185.598 396.696 Amount Norepinephrin 16 mg-0.9% 0 13.851 Ns Pmx 16 mg In 250 ml @ Titrate IV .Q0M SUNG Rx#: [id number] Propofol 1,000 mg In 185.598 382.845 Empty Bag 1 bag @ Titrate IV .Q0M SUNG Rx#: [id number] Tube Feeding 312 78 104 Other 90 Output: Urine 356 575 400 Other: Voiding Method Indwelling Catheter Indwelling Catheter Indwelling Catheter - Exam Physical Exam: Revealed a 72-year-old female, intubated, on mechanical ventilation, in no distress, fully sedated. HEENT:[Neck is supple.] [No neck masses.] [No thyromegaly.] [No JVD.] Endotracheal tube is intact, moist mucous membranes were noted. No neck masses , no JVD was appreciated. Chest: [Crackles at the bases bilaterally, especially at the right base, no rhonchi, no wheezes were appreciated. Symmetrical chest expansion was noted..] Cardiac Exam: [Normal S1 and S2, no S3 gallop, no murmur.] Abdomen: [Obese, Soft, nontender, no megaly, no rebound, no guarding, normal bowel sounds.] Extremities: [Evidence of chronic lymphedema, and resolving cellulitis from the left lower extremity was noted.] Neurological Exam: Cannot be assessed, patient is fully sedated, on mechanical ventilation. Psychiatric: Cannot be assessed. Lymphatics: No lymphadenopathy was appreciated. - Labs CBC & Chem 7: 01/14/18 04:49 01/14/18 04:49 Labs: Abnormal Lab Results - Last 24 Hours (Table) 01/13/18 01/14/18 01/14/18 Range/Units 17:34 00:22 04:49 Hgb 10.9 L (11.4-16.0) gm/dL MCHC 29.0 L (31.0-37.0) g/dL RDW 15.8 H (11.5-15.5) % Plt Count 125 L (150-450) k/uL Lymphocytes # 0.4 L (1.0-4.8) k/uL ABG pH (7.35-7.45) ABG Total CO2 (19-24) mmol/L Potassium (3.5-5.1) mmol/L Chloride (98-107) mmol/L BUN (7-17) mg/dL Glucose (74-99) mg/dL POC Glucose (mg/dL) 184 H 170 H (75-99) mg/dL Calcium (8.4-10.2) mg/dL Magnesium (1.6-2.3) mg/dL Total Bilirubin (0.2-1.3) mg/dL AST (14-36) U/L ALT (9-52) U/L Total Protein (6.3-8.2) g/dL Albumin (3.5-5.0) g/dL 01/14/18 01/14/18 01/14/18 Range/Units 04:49 06:26 08:25 Hgb (11.4-16.0) gm/dL MCHC (31.0-37.0) g/dL RDW (11.5-15.5) % Plt Count (150-450) k/uL Lymphocytes # (1.0-4.8) k/uL ABG pH 7.33 L (7.35-7.45) ABG Total CO2 25 H (19-24) mmol/L Potassium 5.6 H (3.5-5.1) mmol/L Chloride 110 H (98-107) mmol/L BUN 41 H (7-17) mg/dL Glucose 181 H (74-99) mg/dL POC Glucose (mg/dL) 161 H (75-99) mg/dL Calcium 7.8 L (8.4-10.2) mg/dL Magnesium 2.7 H (1.6-2.3) mg/dL Total Bilirubin 0.1 L (0.2-1.3) mg/dL AST 39 H (14-36) U/L ALT 79 H (9-52) U/L Total Protein 4.5 L (6.3-8.2) g/dL Albumin 2.2 L (3.5-5.0) g/dL Microbiology - Last 24 Hours (Table) 01/10/18 20:15 Gram Stain - Final Sputum Sputum Culture - Final Mariah albicans Assessment and Plan Assessment: Impression: 1 acute hypoxic and hypercapnic respiratory failure secondary to acute exacerbation of COPD, triggered by influenza A, right lower lobe pneumonia is strongly suspected, community-acquired, and sepsis. 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 3 left breast nodule likely malignant unless proven otherwise seen on CT of the chest. This was confirmed by physical examination 4 acute sepsis and septic shock requiring norepinephrine in spite of of fluid boluses upon presentation. Resolved, patient is off norepinephrine at this point. 5 acute right lower lobe pneumonia, community-acquired 6 acute exacerbation of COPD, patient is known to have history of COPD and prednisone dependenton her history. 7 history of congestive heart failure, not clear whether systolic or diastolic based on the history. Ejection fraction is presently unknown. 8 acute C. difficile colitis, started on Flagyl. Recommendation: Continue present supportive care measures including mechanical ventilation, blood pressure support, nutritional support, hemodynamic support, antibiotics, bronchodilators, steroids, workup of her underlying lung mass could be done on outpatient basis once the patient improves and extubated. We' ll try to approach the family again regarding CODE STATUS, I have a strong feeling that this patient has extremely poor prognosis, and I would recommend terminal weaning and comfort care, however the family insists on aggressive measures, I will likely recommend tracheostomy and PEG tube placement. Critical care time is 35 minutes. Time with Patient: Greater than 30
--- NOTE | 2018-01-14 13:27 | P.PN ---
Subjective Patient was admitted secondary to influenza tracheobronchitis and COPD exacerbation patient admits intubated patient has poor residual lung function. Normal uses 2.5 L of onset at home. Patient remains on the ventilator without any improvement in her respiratory status. Patient is still on low dose of norepinephrine. On high-dose of the sedation. 01/12/2018 No overnight events had clinical condition remains the same remains on 1 mcg of levo fed remains on high-dose of propofol 01/13/2018 Patient went into atrial fibrillation was given a dose of Cardizem after which heart rate came down and patient is presently on metoprolol patient is also on norepinephrine at a very low-dose patient is found to have C. diff, levofloxacin will be discontinued patient was started on Rocephin although patient is ALLERGIC to penicillin as she is intubated we'll try Rocephin from tomorrow. Will discuss with pulmonology to see if he followed antibodies can be discontinued except for metronidazole which is being used for C. diff colitis. 01/14/2018 Patient can use to have diarrhea and feet has a fecal management system no significant improvement in respiratory status patient is hyperkalemic and patient is already having diarrhea because of which I'm not giving her Late will repeat potassium. Will discuss with the family later today. Patient is off pressor support at this time. Objective - Vital Signs Vital signs: Vital Signs Temp 98.2 F 01/14/18 08:00 Pulse 66 01/14/18 11:41 Resp 25 H 01/14/18 11:00 BP 141/61 01/14/18 11:00 Pulse Ox 95 01/14/18 11:00 Intake & Output 01/13/18 01/14/18 01/14/18 18:59 06:59 18:59 Intake Total 1993.403 7410.696 1004 Output Total 356 575 400 Balance 0351.744 3633.696 604 Weight 98.7 kg 98.7 kg Intake: IV 1200 1200 900 Sodium Chloride 0.9% 1, 1200 1200 900 000 ml @ 100 mls/hr IV . Q10H SUNG Rx#:[id number] Intake, IV Titration 185.598 396.696 Amount Norepinephrin 16 mg-0.9% 0 13.851 Ns Pmx 16 mg In 250 ml @ Titrate IV .Q0M SUNG Rx#: [id number] Propofol 1,000 mg In 185.598 382.845 Empty Bag 1 bag @ Titrate IV .Q0M SUNG Rx#: [id number] Tube Feeding 312 78 104 Other 90 Output: Urine 356 575 400 Other: Voiding Method Indwelling Catheter Indwelling Catheter Indwelling Catheter - Exam PHYSICAL EXAMINATION: GENERAL: Patient is intubated sedated, assist-control ventilation HEENT: Pupils are round and equally reacting to light. EOMI. No scleral icterus. No conjunctival pallor. Normocephalic, atraumatic. No pharyngeal erythema. No thyromegaly. CARDIOVASCULAR: S1 and S2 present. No murmurs, rubs, or gallops. PULMONARY: Diffuse wheezing bilaterally ABDOMEN: Soft, nontender, nondistended, normoactive bowel sounds. No palpable organomegaly. MUSCULOSKELETAL: No joint swelling or deformity. EXTREMITIES: No cyanosis, clubbing, or pedal edema. NEUROLOGICAL: Unable to assess SKIN: No rashes. - Labs CBC & Chem 7: 01/14/18 04:49 01/14/18 04:49 Labs: Abnormal Lab Results - Last 24 Hours (Table) 01/13/18 01/14/18 01/14/18 Range/Units 17:34 00:22 04:49 Hgb 10.9 L (11.4-16.0) gm/dL MCHC 29.0 L (31.0-37.0) g/dL RDW 15.8 H (11.5-15.5) % Plt Count 125 L (150-450) k/uL Lymphocytes # 0.4 L (1.0-4.8) k/uL ABG pH (7.35-7.45) ABG Total CO2 (19-24) mmol/L Potassium (3.5-5.1) mmol/L Chloride (98-107) mmol/L BUN (7-17) mg/dL Glucose (74-99) mg/dL POC Glucose (mg/dL) 184 H 170 H (75-99) mg/dL Calcium (8.4-10.2) mg/dL Magnesium (1.6-2.3) mg/dL Total Bilirubin (0.2-1.3) mg/dL AST (14-36) U/L ALT (9-52) U/L Total Protein (6.3-8.2) g/dL Albumin (3.5-5.0) g/dL 01/14/18 01/14/18 01/14/18 Range/Units 04:49 06:26 08:25 Hgb (11.4-16.0) gm/dL MCHC (31.0-37.0) g/dL RDW (11.5-15.5) % Plt Count (150-450) k/uL Lymphocytes # (1.0-4.8) k/uL ABG pH 7.33 L (7.35-7.45) ABG Total CO2 25 H (19-24) mmol/L Potassium 5.6 H (3.5-5.1) mmol/L Chloride 110 H (98-107) mmol/L BUN 41 H (7-17) mg/dL Glucose 181 H (74-99) mg/dL POC Glucose (mg/dL) 161 H (75-99) mg/dL Calcium 7.8 L (8.4-10.2) mg/dL Magnesium 2.7 H (1.6-2.3) mg/dL Total Bilirubin 0.1 L (0.2-1.3) mg/dL AST 39 H (14-36) U/L ALT 79 H (9-52) U/L Total Protein 4.5 L (6.3-8.2) g/dL Albumin 2.2 L (3.5-5.0) g/dL Microbiology - Last 24 Hours (Table) 01/10/18 20:15 Gram Stain - Final Sputum Sputum Culture - Final Mariah albicans Assessment and Plan Plan: -Septic shock: Secondary to influenza A infection continue with IV fluids Continue ventilator support and wean off as tolerated. Off pressors -Acute hypercapnic respiratory failure: Secondary to COPD exacerbation which is precipitated by influenza. Patient does not appear to have any pneumonia does have atelectasis and a masslike lesion in the right lower lobe. Patient is on levofloxacin at this time was started by spring clipper Clostridium difficile colitis: Patient is on metronidazole and levofloxacin is being discontinued patient was started on Rocephin -Elevated d-dimer without any evidence of PE -Acute renal failure secondary to septic shock continue with IV fluids Atrial fibrillation with rapid and regular rate, presently rate controlled patient is on metoprolol
[2018-01-14 13:30] LABS: Glucose,Whole Blood 186 mg/dL (75-99)
[2018-01-14 17:59] LABS: Glucose,Whole Blood 161 mg/dL (75-99)
[2018-01-14] MEDS: HYDROmorphone 0.5 MG/0.5 ML SYRINGE IVP PRN (18:43)
[2018-01-14 23:59] LABS: Glucose,Whole Blood 148 mg/dL (75-99)
[2018-01-15] MEDS: INSULIN ASPART 100 UNIT/ML 1 ML 10 ML VIAL SQ SCH ×4 (00:17→17:52)
[2018-01-15] MEDS: PROPOFOL 1,000 MG in EMPTY BAG 1 BAG IV SCH ×9 (01:16→22:40)
[2018-01-15] MEDS: DILTIAZEM 125 MG in SODIUM CHLORIDE 0.9% 100 ML IV SCH ×2 (02:45→14:05)
[2018-01-15] MEDS: HYDROmorphone 0.5 MG/0.5 ML SYRINGE IVP PRN ×2 (04:07→11:41)
[2018-01-15 04:53] LABS: Basophils % (A) 0 %; Eosinophils % (A) 0 %; HCT 40.1 % (34.0-46.0); HGB 11.6 gm/dL (11.4-16.0); Hypochromasia Marked; Lymphocytes # (A) 0.3 k/uL (1.0-4.8); Lymphocytes % (A) 8 %; MCH 26.9 pg (25.0-35.0); MCHC 28.9 g/dL (31.0-37.0); MCV 93.2 fL (80.0-100.0); Mean Platelet Volume 8.3; Monocytes # (A) 0.3 k/uL (0-1.0); Monocytes % (A) 6 %; Neutrophils # (A) 3.5 k/uL (1.3-7.7); Neutrophils % (A) 84 %; Platelet Count 125 k/uL (150-450); WBC 4.1 k/uL (3.8-10.6)
[2018-01-15] MEDS: methylPREDNISolone SOD SUCCI 125 MG/2 ML VIAL IV SCH ×4 (05:03→23:44)
[2018-01-15 05:05] LABS: ALT 61 U/L (9-52); AST 25 U/L (14-36); Albumin 2.2 g/dL (3.5-5.0); Alkaline Phosphatase 65 U/L (38-126); Anion Gap 3 mmol/L; Blood Urea Nitrogen 53 mg/dL (7-17); Carbon Dioxide 23 mmol/L (22-30); Chloride 111 mmol/L (98-107); Glucose 147 mg/dL (74-99); Phosphorus 4.4 mg/dL (2.5-4.5); Sodium 137 mmol/L (137-145); Total Bilirubin 0.2 mg/dL (0.2-1.3); Total Protein 4.6 g/dL (6.3-8.2)
[2018-01-15 05:11] LABS: Potassium 6.4 mmol/L (3.5-5.1)
[2018-01-15] MEDS ORDERED: INSULIN REGULAR 100 UNIT/ML VIAL IV ONE ×3 (05:35→21:16)
[2018-01-15] MEDS ORDERED: DEXTROSE 50%-WATER 50 ML SYRINGE IVP STA ×3 (05:50→21:16)
[2018-01-15 06:04] LABS: Glucose,Whole Blood 147 mg/dL (75-99)
[2018-01-15] MEDS: SODIUM CHLORIDE 0.9% 1,000 ML IV SCH ×2 (06:07→16:27)
--- NOTE | 2018-01-15 07:01 | XR ---
EXAMINATION TYPE: XR chest 1V portable DATE OF EXAM: 01/15/2018 HISTORY: Tube placement. REFERENCE: Previous study dated 01/14/2018. FINDINGS: The right basilic PICC line remains in place. Its tip is in the right atrium. There continues to be a masslike opacity at the right lung base. There is airspace disease present at both lung bases. The heart is not enlarged. There is a left-sided effusion. IMPRESSION: 1. BILATERAL AIRSPACE DISEASE. 2. RIGHT LOWER LUNG MASS. 3. LEFT-SIDED EFFUSION.
[2018-01-15] MEDS: BUDESONIDE 0.5 MG/2 ML NEBU INHALATION SCH ×3 (07:09→19:37)
[2018-01-15] MEDS: FORMOTEROL FUMARATE 20 MCG/2 ML NEBU INHALATION SCH ×3 (07:09→19:37)
[2018-01-15] MEDS: IPRATROPIUM-ALBUTEROL 3 ML NEB INHALATION PRN ×4 (07:09→19:37)
[2018-01-15 07:17] LABS: Glucose,Whole Blood 153 mg/dL (75-99)
[2018-01-15 08:22] LABS: Ionized Calcium 5.2 mg/dL (4.5-5.3)
[2018-01-15 08:34] LABS: Phosphorus 4.7 mg/dL (2.5-4.5)
[2018-01-15 08:36] LABS: ABG HCO3 22 mmol/L (21-25); ABG Oxygen Saturation 92.3 % (94-97); ABG PCO2 49 mmHg (35-45); ABG PH 7.26 (7.35-7.45); ABG PO2 72 mmHg (83-108); ABG TCO2 24 mmol/L (19-24)
[2018-01-15 08:37] LABS: Potassium 6.4 mmol/L (3.5-5.1)
[2018-01-15] MEDS ORDERED: SODIUM BICARB 8.4% 50 ML SYR (1 MEQ/ML) IV ONE (09:07)
[2018-01-15] MEDS ORDERED: SODIUM POLYSTYRENE SULFONATE 15 GM/60 ML BOTTLE PO STA ×2 (09:13→21:16)
[2018-01-15] MEDS: cefTRIAXone IN SWFI 1,000 MG/10 ML SYRINGE IVP SCH (09:21)
[2018-01-15] MEDS: HEPARIN SODIUM,PORCINE 5,000 UNIT/ML 1 ML VIAL SQ SCH ×2 (09:22→21:07)
[2018-01-15] MEDS: metroNIDAZOLE 500 MG TAB PO SCH ×3 (09:22→21:07)
[2018-01-15] MEDS: CHLORHEXIDINE GLUCONATE 15 ML CUP MUCOUS MEM SCH ×2 (09:22→21:07)
[2018-01-15] MEDS: FAMOTIDINE 20 MG/2 ML VIAL IV SCH (09:22)
[2018-01-15] MEDS ORDERED: SODIUM CHLORIDE 0.9% 1,000 ML IV ONE ×2 (09:30→15:00)
[2018-01-15] MEDS: LORazepam 2 MG/ML INJ IV PRN (09:36)
[2018-01-15] MEDS ORDERED: CALCIUM GLUCONATE 1,000 MG in SODIUM CHLORIDE 0.9% 100 ML IVPB ONE ×2 (10:00→21:16)
[2018-01-15 11:31] LABS: Glucose,Whole Blood 162 mg/dL (75-99)
--- NOTE | 2018-01-15 13:07 | P.PN ---
Subjective Progress Note Date: 01/15/18 Principal diagnosis: Acute hypoxic and hypercapnic respiratory failure secondary to COPD, influenza A , right lower lobe pneumonia. This is a 72-year-old female with history of congestive heart failure, COPD, started having increased shortness of breath around 5 PM yesterday. Patient was noted noted by the ER physician in [place] as having struggled to breathe. She was initially placed on BiPAP, but apparently Deteriorating, and ended up intubated and placed on mechanical ventilation. Patient was transferred to our emergency room, evaluated briefly in the ER, and admitted to the ICU. Patient apparently had what seemed to be a picture of hypoxic and hypercapnic respiratory failure with positive influenza A screening, CT of the chest upon admission showed no evidence of pulmonary embolism, but there was a 4 cm spiculated mass in the right lower lobe abutting the pleural surface, and there is also some consolidation and pneumonic process in the right lower lobe. There was also evidence of the 2 cm left breast mass and a 14 mm nodule in the left lung base. On the mediastinal windows there was evidence of right hilar lymphadenopathy suspicious for deisy metastasis. Upon my evaluation, the patient was noted to be on mechanical ventilation, no family members available at bedside, and most of the information was obtained from the chart from [facility], and from our ER. Labs were reviewed her ABG showed a pO2 of 80 pCO2 of 49 pH of 7.32. Ventilator settings were basically unchanged. Troponin was noted to be a bit elevated at 0.173, doubt clinical significance. WBC count was 25.6 hemoglobin 11.8. D-dimer was 3.39 again her workup for pulmonary embolism was negative. Influenza screen was positive for influenza A. Patient was reevaluated today on 01/11/2018, remains on mechanical ventilation, patient had her sedation on hold earlier this morning, but she became tachypneic , tachycardic, hypertensive, and not appropriate, restless, agitated, hence patient was placed back on propofol drip. Her ventilator settings are basically about the same, increased her tidal volume to 500. ABG showed a pO2 of 63 pCO2 of 47 pH of 7.34 and this is on a 50% FiO2 and PEEP of 5. CBC showed leukocytosis with WBC count of 13.3 hemoglobin is 11.7. Basic metabolic profile is relatively normal, BUN and creatinine are improved with creatinine of 1.18. It was 1.40 yesterday. Chest x-ray showed right lower lobe mass, pneumonic process also noted in the right lower lobe, and a small left pleural effusion also noted. Her WBC count today is improved compared to the WBC count on admission which was over 25,000. Airway mechanics on mechanical ventilation seem to be normal with rectal pressures in the range of 15, peak airway pressure is about 27. Patient was reevaluated today on 01/12/2018, remains on mechanical ventilation, same ventilator settings with FiO2 at 50%, her airway mechanics are reasonable, peak airway pressure is in the 24 range, plateau pressures are in the range of 15, static compliance is in the range of 50. ml/cm h2o, ABG showed a pO2 of 80 pCO2 of 46 pH of 7.32. Chest x-ray continues to show a right lower lobe mass and right lower lobe infiltrate. Slightly improved compared to admission chest x-ray. Tip of the PICC line is noted to be in the right atrium. Labs were reviewed she had a WBC count of 6.4 hemoglobin is 10.9. Basic metabolic profile and renal profile seems to be normal. However patient tested positive for C. difficile colitis, and I went ahead and started the patient on Flagyl via nasogastric tube 500 mg 3 times a day. Patient was given a sedation holiday earlier today, however she became extremely agitated, restless, blood pressure went up, she was tachypneic, tachycardic, and was not following any instructions. Patient was more or less obtunded. Hence patient was placed back on propofol, and she is sedated again. Patient was reevaluated today on 01/13/2018, remains on mechanical ventilation with the same vent settings, remains on FiO2 of 50%, airway mechanics are basically about the same, plateau pressures are in the range of 20, static compliance is in the range of 50. Patient had atrial fibrillation and RVR, placed on Cardizem drip last night, but now she is off the Cardizem, and she was placed on beta blockers. Chest x-ray is about the same. ABG this morning showed a pO2 of 73 pCO2 of 46 pH of 7.31. Basic metabolic profile is relatively normal, BUN is 35 creatinine is 0.90. Patient is back on a small dose of levo fed, presently on 1 g of levo fed, and she is still on antibiotics , bronchodilators, steroids, etc. receiving nutritional support via nasogastric tube. Drains on GI and DVT prophylaxis. No family members available at bedside today. Reevaluated today on 01/14/2018, patient remains about the same, ventilator settings were changed, I have increased her respiratory rate up to 24, still on 50% FiO2, and PEEP of 8. Patient seems to be hemodynamically stable. Not requiring any antiarrhythmic agents intravenously, and not requiring any norepinephrine at this point. She will be given a sedation holiday today, however I strongly doubt the patient is anywhere near ready to be weaned at this point. Chest x-ray continues to demonstrate a right lower lobe mass, and atelectasis with a small right-sided pleural effusion and tiny left pleural effusion. ABG this morning showed a pO2 of 83 pCO2 of 45 pH of 7.33, CBC is relatively normal with a hemoglobin of 10.9. Potassium is 5.6 bicarb is 25. BUN is 41 creatinine is 0.78. Liver enzymes are borderline elevated. Airway mechanics were noted, patient continues to have a static compliance in the range of 50. Patient was reevaluated today on 01/15/2018, remains on mechanical ventilation, quite obtunded, could not cut down on the sedation because of difficulty ventilating the patient when she is restless agitated and becomes very asynchronous with the mechanical ventilator. Her peak airway pressure is rather high, hence I have made some changes on her ventilator settings, patient' s tidal volume is down to 450 assist-control rate is 30 FiO2 is 60% and PEEP is 5. I have also instructed the nurses to give her more sedation and increased the dose of propofol, can also use Ativan intermittently. Labs are abnormal today including hyperkalemia was noted, and I have recommended treatment including calcium gluconate, insulin and glucose, and I will also recommended Kayexalate. ABG was reviewed her pO2 is 72 pCO2 of 49 pH of 7.26, repeat potassium this morning was 5.9. It was 6.4 early this morning. Chest x-ray is basically unchanged. Patient is not requiring any pressors, she is receiving nutritional support. No decision has been made from the family regarding CODE STATUS and possibly terminal weaning since the condition is quite hopeless. Objective - Vital Signs Vital signs: Vital Signs Temp 98.6 F 01/15/18 08:00 Pulse 56 L 01/15/18 12:10 Resp 30 H 01/15/18 11:45 BP 113/49 01/15/18 11:45 Pulse Ox 95 01/15/18 11:45 Intake & Output 01/14/18 01/15/18 01/15/18 18:59 06:59 18:59 Intake Total 2227.4 1394.853 295.912 Output Total 1590 1262 40 Balance 637.4 132.853 255.912 Weight 98.7 kg 102.7 kg Intake: IV 1700 1100 100 Sodium Chloride 0.9% 1, 1700 1100 100 000 ml @ 100 mls/hr IV . Q10H SUNG Rx#:[id number] Intake, IV Titration 111.4 190.853 195.912 Amount Norepinephrin 16 mg-0.9% 1 5.045 Ns Pmx 16 mg In 250 ml @ Titrate IV .Q0M SUNG Rx#: [id number] Propofol 1,000 mg In 111.4 189.853 190.867 Empty Bag 1 bag @ Titrate IV .Q0M SUNG Rx#: [id number] Tube Feeding 416 104 Output: Urine 990 362 40 Stool 600 900 Other: Voiding Method Indwelling Catheter Indwelling Catheter - Exam Physical Exam: Revealed a 72-year-old female, intubated, on mechanical ventilation, in no distress, fully sedated. HEENT:[Neck is supple.] [No neck masses.] [No thyromegaly.] [No JVD.] Endotracheal tube is intact, moist mucous membranes were noted. No neck masses , no JVD was appreciated. Chest: [Crackles at the bases bilaterally, especially at the right base, no rhonchi, no wheezes were appreciated. Symmetrical chest expansion was noted..] Cardiac Exam: [Normal S1 and S2, no S3 gallop, no murmur.] Abdomen: [Obese, Soft, nontender, no megaly, no rebound, no guarding, normal bowel sounds.] Fecal management system is noted. Extremities: [Evidence of chronic lymphedema, and resolving cellulitis from the left lower extremity was noted.] Neurological Exam: Cannot be assessed, patient is fully sedated, on mechanical ventilation. Psychiatric: Cannot be assessed. Lymphatics: No lymphadenopathy was appreciated. - Labs CBC & Chem 7: 01/15/18 04:38 01/15/18 11:48 Labs: Abnormal Lab Results - Last 24 Hours (Table) 01/14/18 01/14/18 01/14/18 Range/Units 13:28 17:58 23:57 MCHC (31.0-37.0) g/dL RDW (11.5-15.5) % Plt Count (150-450) k/uL Lymphocytes # (1.0-4.8) k/uL ABG pH (7.35-7.45) ABG pCO2 (35-45) mmHg ABG pO2 (83-108) mmHg ABG O2 Saturation (94-97) % Potassium (3.5-5.1) mmol/L Chloride (98-107) mmol/L BUN (7-17) mg/dL Glucose (74-99) mg/dL POC Glucose (mg/dL) 186 H 161 H 148 H (75-99) mg/dL Calcium (8.4-10.2) mg/dL Phosphorus (2.5-4.5) mg/dL Magnesium (1.6-2.3) mg/dL ALT (9-52) U/L Total Protein (6.3-8.2) g/dL Albumin (3.5-5.0) g/dL 01/15/18 01/15/18 01/15/18 Range/Units 04:38 04:38 06:01 MCHC 28.9 L (31.0-37.0) g/dL RDW 16.0 H (11.5-15.5) % Plt Count 125 L (150-450) k/uL Lymphocytes # 0.3 L (1.0-4.8) k/uL ABG pH (7.35-7.45) ABG pCO2 (35-45) mmHg ABG pO2 (83-108) mmHg ABG O2 Saturation (94-97) % Potassium 6.4 H* (3.5-5.1) mmol/L Chloride 111 H (98-107) mmol/L BUN 53 H (7-17) mg/dL Glucose 147 H (74-99) mg/dL POC Glucose (mg/dL) 147 H (75-99) mg/dL Calcium 8.0 L (8.4-10.2) mg/dL Phosphorus (2.5-4.5) mg/dL Magnesium 3.0 H (1.6-2.3) mg/dL ALT 61 H (9-52) U/L Total Protein 4.6 L (6.3-8.2) g/dL Albumin 2.2 L (3.5-5.0) g/dL 01/15/18 01/15/18 01/15/18 Range/Units 07:15 08:00 08:33 MCHC (31.0-37.0) g/dL RDW (11.5-15.5) % Plt Count (150-450) k/uL Lymphocytes # (1.0-4.8) k/uL ABG pH 7.26 L (7.35-7.45) ABG pCO2 49 H (35-45) mmHg ABG pO2 72 L (83-108) mmHg ABG O2 Saturation 92.3 L (94-97) % Potassium 6.4 H* (3.5-5.1) mmol/L Chloride (98-107) mmol/L BUN (7-17) mg/dL Glucose (74-99) mg/dL POC Glucose (mg/dL) 153 H (75-99) mg/dL Calcium (8.4-10.2) mg/dL Phosphorus 4.7 H (2.5-4.5) mg/dL Magnesium 3.0 H (1.6-2.3) mg/dL ALT (9-52) U/L Total Protein (6.3-8.2) g/dL Albumin (3.5-5.0) g/dL 01/15/18 01/15/18 Range/Units 11:28 11:48 MCHC (31.0-37.0) g/dL RDW (11.5-15.5) % Plt Count (150-450) k/uL Lymphocytes # (1.0-4.8) k/uL ABG pH (7.35-7.45) ABG pCO2 (35-45) mmHg ABG pO2 (83-108) mmHg ABG O2 Saturation (94-97) % Potassium 5.9 H (3.5-5.1) mmol/L Chloride (98-107) mmol/L BUN (7-17) mg/dL Glucose (74-99) mg/dL POC Glucose (mg/dL) 162 H (75-99) mg/dL Calcium (8.4-10.2) mg/dL Phosphorus (2.5-4.5) mg/dL Magnesium (1.6-2.3) mg/dL ALT (9-52) U/L Total Protein (6.3-8.2) g/dL Albumin (3.5-5.0) g/dL Assessment and Plan Assessment: Impression: 1 acute hypoxic and hypercapnic respiratory failure secondary to acute exacerbation of COPD, triggered by influenza A, right lower lobe pneumonia is strongly suspected, community-acquired, and sepsis. 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 3 left breast nodule likely malignant unless proven otherwise seen on CT of the chest. This was confirmed by physical examination 4 acute sepsis and septic shock requiring norepinephrine in spite of of fluid boluses upon presentation. Resolved, patient is off norepinephrine at this point. 5 acute right lower lobe pneumonia, community-acquired 6 acute exacerbation of COPD, patient is known to have history of COPD and prednisone dependenton her history. 7 history of congestive heart failure, not clear whether systolic or diastolic based on the history. Ejection fraction is presently unknown. 8 acute C. difficile colitis, started on Flagyl. Recommendation: Continue present supportive care measures including mechanical ventilation, blood pressure support, nutritional support, hemodynamic support, antibiotics, bronchodilators, steroids, workup of her underlying lung mass could be done on outpatient basis once the patient improves and extubated. However from the overall clinical picture, I believe the patient is not going to do well, it is going to be impossible to wean and extubate this patient from mechanical ventilation, on his next week, we would have to reapproach the family regarding CODE STATUS and explaining to them that this is likely in medical futility situation, possibly consider comfort care measures. Critical care time is 35 minutes. Time with Patient: Greater than 30
--- NOTE | 2018-01-15 14:53 | XR ---
EXAMINATION TYPE: XR chest 1V portable DATE OF EXAM: 01/15/2018 CLINICAL HISTORY: Difficulty breathing progress study. Hypoxia despite intubation. TECHNIQUE: Single AP portable frontal view of the chest is obtained. COMPARISON: Chest x-ray from earlier today and older studies. CT chest from 5 days ago FINDINGS: An endotracheal tube, orogastric tube, and right-sided PICC line are all stable in appeara nce. Cardiac silhouette size is stable and mildly enlarged. Osseous structures are intact. There is b ackground emphysematous change with right lower lobe mass or masslike consolidation redemonstrated. T here is persistent left basilar opacity silhouetting left hemidiaphragm consistent with infiltrate an d/or atelectasis and probable small left pleural effusion. No significant change from x-ray earlier t kathy. IMPRESSION: Overall stable findings, chronic emphysematous change and mild cardiomegaly with right lower lobe mass probable neoplasm and persistent left basilar infiltrate and/or atelectasis and small left pleural effusion all are redemonstrated. No significant change from chest x-ray earlier today
[2018-01-15 16:56] LABS: Glucose,Whole Blood 197 mg/dL (75-99)
[2018-01-15 16:57] LABS: Magnesium 2.7 mg/dL (1.6-2.3); Phosphorus 4.8 mg/dL (2.5-4.5)
[2018-01-15 17:01] LABS: ALT 65 U/L (9-52); AST 32 U/L (14-36); Albumin 2.1 g/dL (3.5-5.0); Alkaline Phosphatase 70 U/L (38-126); Anion Gap 6 mmol/L; Blood Urea Nitrogen 59 mg/dL (7-17); Calcium 7.5 mg/dL (8.4-10.2); Carbon Dioxide 20 mmol/L (22-30); Chloride 113 mmol/L (98-107); Glucose 204 mg/dL (74-99); Sodium 139 mmol/L (137-145); Total Bilirubin 0.2 mg/dL (0.2-1.3); Total Protein 4.4 g/dL (6.3-8.2)
[2018-01-15] MEDS: METOPROLOL TARTRATE 25 MG TAB PO SCH ×2 (17:46→21:06)
--- NOTE | 2018-01-15 18:52 | PN ---
PROGRESS NOTE DATE OF SERVICE: 01/15/2018 The patient remains on mechanical ventilation, remains obtunded, has not been able to be weaned. VITAL SIGNS: Temperature 98.6, pulse 76, respiration 30, blood pressure 113/49, O2 saturation 97%. HEENT: Atraumatic, normocephalic. Pupils are reactive, but sluggish. Heart is regular rate and rhythm without any murmurs, gallop rhythm. Abdomen is soft, nontender, nondistended. Bowel sounds positive. LUNGS: Scattered rhonchi. No wheezing. Abdomen is soft and nontender, nondistended. Bowel sounds positive. EXTREMITIES: No edema clubbing, cyanosis. There is some resolving cellulitis from lower extremities. NEUROLOGICAL: Cannot be assessed. Patient is intubated. LABS: CBC: White blood count of 4.1, hemoglobin 11.6, hematocrit 40.1 and platelet count of 125. Chemical profile: Sodium of 125, potassium 6.4, chloride 111, bicarb 53 and glucose 147. ASSESSMENT: 1. Acute hypoxemic and hypercapnic respiratory failure. 2. Acute exacerbation of chronic obstructive pulmonary disease. 3. Influenza A infection. 4. Right lower lobe pneumonia. 5. Right lung mass suspicious of bronchogenic carcinoma with metastasis. 6. Left breast nodule, most likely malignant. 7. Acute sepsis and septic shock requiring norepinephrine. 8. History of congestive heart failure and coronary artery disease. 9. Acute Clostridium difficile colitis. The patient remains in ICU. Continue with the hemodynamic and nutritional support. Continue with IV antibiotics and continue with Flagyl, bronchodilators and steroids as recommended by cell lead. The patient has not had workup on lung mass. Plan is to start the workup once the patient improves clinically. MMODL / IJN: [id number] /
[2018-01-15] MEDS ORDERED: SODIUM BICARB 8.4% 50 ML SYR (1 MEQ/ML) IV STA (21:16)
[2018-01-15] MEDS ORDERED: FUROSEMIDE 10 MG/ML 4 ML VIAL IV STA (21:16)
[2018-01-15 23:56] LABS: Glucose,Whole Blood 216 mg/dL (75-99)
[2018-01-16] MEDS: INSULIN ASPART 100 UNIT/ML 1 ML 10 ML VIAL SQ SCH ×4 (00:21→18:47)
[2018-01-16] MEDS: PROPOFOL 1,000 MG in EMPTY BAG 1 BAG IV SCH ×7 (00:42→22:19)
[2018-01-16 04:39] LABS: Anisocytosis Slight; HCT 42.3 % (34.0-46.0); Hypochromasia Marked; MCHC 28.4 g/dL (31.0-37.0); Mean Platelet Volume 8.7; Platelet Count 124 k/uL (150-450); RBC 4.45 m/uL (3.80-5.40); RDW 16.2 % (11.5-15.5); WBC 5.4 k/uL (3.8-10.6)
[2018-01-16 04:54] LABS: Calcium 7.5 mg/dL (8.4-10.2); Magnesium 2.6 mg/dL (1.6-2.3); Potassium 5.9 mmol/L (3.5-5.1)
[2018-01-16] MEDS: DILTIAZEM 125 MG in SODIUM CHLORIDE 0.9% 100 ML IV SCH ×2 (05:12→15:56)
[2018-01-16] MEDS: SODIUM CHLORIDE 0.9% 1,000 ML IV SCH ×2 (05:12→12:07)
[2018-01-16 05:21] LABS: Glucose,Whole Blood 139 mg/dL (75-99)
[2018-01-16] MEDS: methylPREDNISolone SOD SUCCI 125 MG/2 ML VIAL IV SCH ×3 (05:52→18:09)
[2018-01-16] MEDS ORDERED: FUROSEMIDE 10 MG/ML 10 ML VIAL IV STA ×2 (06:32→11:24)
--- NOTE | 2018-01-16 07:05 | XR ---
EXAMINATION TYPE: XR chest 1V portable DATE OF EXAM: 01/16/2018 HISTORY: Tube placement. REFERENCE: Previous study dated 01/15/2018. FINDINGS: The patient is ET tube remains in place, unchanged in appearance. The patient is NG tube re ana paula in place but its tip cannot be accurately demonstrated below the diaphragm. A right basilic PIC C line is in place. Its tip is at the cavoatrial junction. There is a 5.5 cm right lower lobe pulmonary mass. There is bibasilar airspace disease. There is a le ft-sided effusion. Heart size upper limits of normal. IMPRESSION: 1. BIBASILAR INFILTRATES. 2. LEFT-SIDED EFFUSION. 3. BORDERLINE CARDIOMEGALY. 4. RIGHT LOWER LOBE PULMONARY MASS.
[2018-01-16] MEDS: CHLORHEXIDINE GLUCONATE 15 ML CUP MUCOUS MEM SCH ×2 (08:09→22:03)
[2018-01-16] MEDS: HEPARIN SODIUM,PORCINE 5,000 UNIT/ML 1 ML VIAL SQ SCH ×2 (08:10→22:03)
[2018-01-16] MEDS: FAMOTIDINE 20 MG/2 ML VIAL IV SCH (08:10)
[2018-01-16 08:19] LABS: ABG Base Excess -7.6 mmol/L; ABG HCO3 21 mmol/L (21-25); ABG Oxygen Saturation 87.7 % (94-97); ABG PCO2 54 mmHg (35-45); ABG PO2 59 mmHg (83-108); ABG TCO2 22 mmol/L (19-24)
[2018-01-16 08:22] LABS: ABG PH 7.19 (7.35-7.45)
[2018-01-16] MEDS ORDERED: SODIUM BICARB 8.4% 50 ML SYR (1 MEQ/ML) ONE ×2 (08:28→17:12)
[2018-01-16] MEDS: cefTRIAXone IN SWFI 1,000 MG/10 ML SYRINGE IVP SCH (08:29)
[2018-01-16] MEDS: metroNIDAZOLE 500 MG TAB PO SCH ×3 (08:37→22:04)
[2018-01-16] MEDS: FORMOTEROL FUMARATE 20 MCG/2 ML NEBU INHALATION SCH ×2 (08:52→19:00)
[2018-01-16] MEDS: BUDESONIDE 0.5 MG/2 ML NEBU INHALATION SCH ×2 (08:52→19:01)
[2018-01-16 09:04] LABS: ABG HCO3 22 mmol/L (21-25); ABG Oxygen Saturation 98.9 % (94-97); ABG PCO2 52 mmHg (35-45); ABG PH 7.23 (7.35-7.45); ABG PO2 235 mmHg (83-108); ABG TCO2 23 mmol/L (19-24)
[2018-01-16] MEDS: DEXTROSE 5% IN WATER 1,000 ML with SODIUM BICARB (1 MEQ/ML) 150 ML IV SCH (10:09)
[2018-01-16] MEDS ORDERED: DEXTROSE 50%-WATER 50 ML SYRINGE IVP STA ×2 (10:34→17:00)
[2018-01-16] MEDS: METOPROLOL TARTRATE 25 MG TAB PO SCH ×3 (10:37→22:55)
[2018-01-16] MEDS ORDERED: INSULIN REGULAR 100 UNIT/ML VIAL IV ONE ×2 (10:45→17:00)
--- NOTE | 2018-01-16 10:45 | P.NPCON ---
History of Present Illness - Reason for Consult acute renal failure - History of Present Illness Reason for consultation: Acute kidney injury History of present illness: Patient is a 72-year-old female seen in renal consultation for acute kidney injury and electrolyte imbalance. Her creatinine was 1.4 on admission and it did come down to 0.8 with IV hydration. Today is up to 1.17. Patient presented to the hospital with dyspnea and acute COPD exacerbation. She was subsequently intubated. She is also noted to be positive for influenza A virus as well as C. diff. Potassium has been running on the higher side and is 5.9 this morning. She did receive Kayexalate last night. She is noted to be acidotic with bicarb level of 20. She is currently requiring 3 mics of levo fed. She is also on normal saline at 100 mL an hour. She did receive a dose of Lasix 80 mg IV this morning due to low urine output. She is also maintained on tube feeds. Her albumin level is 2.1. Urinalysis is noted to be quite benign. She also has history of lung cancer with metastatic disease. She has received about 3-1/2 L of fluid in the last 2 days. She was also noted to be in A. fib but is currently in sinus rhythm and off Cardizem drip. I don't see any NSAIDs and her home medications. Vital signs are stable. General: The patient appeared well nourished and normally developed. Currently intubated. HEENT: Head exam is unremarkable. Neck is without jugular venous distension. LUNGS: Lungs are clear to auscultation and percussion. Breath sounds decreased. HEART: Rate and Rhythm are regular. First and second heart sounds normal. No murmurs, rubs or gallops. ABDOMEN: Abdominal exam reveals normal bowel sounds. Non-tender and non- distended. No evidence of peritonitis. EXTREMITITES: 1+ edema. Past Medical History Past Medical History: Heart Failure, COPD Additional Past Medical History / Comment(s): 06-06-15 ADMITTED TO [facility] WITH COPD /CHF, OTHER HX HAND TREMORS(OCC). 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) Past Anesthesia/Blood Transfusion Reactions: No Reported Reaction Past Psychological History: No Psychological Hx Reported Smoking Status: Former smoker Past Alcohol Use History: Daily Past Drug Use History: None Reported - Past Family History Mother Family Medical History: Congestive Heart Failure (CHF), Coronary Artery Disease (CAD), Hyperlipidemia, Hypertension Additional Family Medical History / Comment(s): CABG Father Family Medical History: Cancer, Myocardial Infarction (ME) Medications and Allergies Home Medications Medication Instructions Recorded Confirmed Type Furosemide [Lasix] 40 mg PO DAILY #30 tablet 06/11/15 01/10/18 Rx Budesonide [Pulmicort] 0.5 mg INHALATION RT-BID 12/29/17 01/10/18 History Ipratropium-Albuterol Nebulize 3 ml IH RT-TID 12/29/17 01/10/18 History [Duoneb 0.5 mg-3 mg/3 ml Soln] predniSONE 10 mg PO DAILY #0 01/03/18 01/10/18 Rx Cephalexin [Keflex] 500 mg PO Q8HR 7 Days #21 cap 01/04/18 01/10/18 Rx predniSONE See Taper PO DIRECTED 01/10/18 01/10/18 History Allergies Allergy/AdvReac Type Severity Reaction Status Date / Time Penicillins Allergy Unknown Verified 01/10/18 07:47 strawberry Allergy Unknown Verified 01/10/18 07:47 Physical Exam Vitals: Vital Signs Temp Pulse Resp BP Pulse Ox 01/16/18 10:00 70 30 H 129/49 100 01/16/18 09:30 71 30 H 136/58 100 01/16/18 09:00 118 H 30 H 123/63 99 01/16/18 08:30 118 H 31 H 77/46 97 01/16/18 08:00 97.6 F 118 H 32 H 109/59 92 L 01/16/18 07:30 69 30 H 150/58 93 L 01/16/18 07:00 69 30 H 120/56 96 01/16/18 06:30 70 28 H 112/44 93 L 01/16/18 06:00 70 8 L 151/55 94 L 01/16/18 05:30 73 31 H 131/51 92 L 01/16/18 05:00 74 30 H 130/54 93 L 01/16/18 04:30 75 30 H 124/54 94 L 01/16/18 04:00 96.8 F L 77 29 H 116/50 93 L 02/25/18 03:30 76 31 H 119/52 93 L 02/25/18 03:00 75 30 H 119/50 93 L 02/25/18 02:30 70 30 H 116/48 94 L 02/25/18 02:00 70 29 H 112/48 93 L 02//18 01:30 69 30 H 115/48 93 L 02/25/18 01:00 69 29 H 119/48 93 L 02/25/18 00:30 69 29 H 124/49 93 L 0225/18 00:00 96.6 F L 69 30 H 103/47 93 L 02/24/18 23:30 70 17 94/41 91 L 02/24/18 23:08 68 29 H 83/36 94 L 02/24/18 23:00 68 32 H 104/44 94 L 02/24/18 22:30 67 32 H 110/49 96 02/24/18 22:00 78 34 H 137/58 100 0224/18 21:30 82 25 H 112/50 97 02/24/18 21:00 80 26 H 129/53 97 02/24/18 20:30 76 25 H 99 02/24/18 20:20 75 02/24/18 20:00 96.8 F L 73 30 H 99 02/24/18 19:55 73 02/24/18 19:44 70 02/24/18 19:30 70 30 H 105/46 96 02/24/18 19:00 70 30 H 107/45 95 02/24/18 18:45 71 30 H 95/42 95 02/24/18 18:30 70 31 H 107/43 95 02/24/18 18:15 72 30 H 109/43 95 02/24/18 18:00 73 32 H 117/47 96 02/24/18 17:45 73 31 H 119/46 97 02/24/18 17:30 74 29 H 117/44 96 02/24/18 17:15 73 30 H 106/42 95 02/24/18 17:00 72 30 H 102/43 95 02/24/18 16:45 74 30 H 102/41 94 L 02/24/18 16:30 72 31 H 100/42 93 L 02/24/18 16:15 71 30 H 115/47 92 L 02/24/18 16:00 97.5 F L 67 33 H 122/49 92 L 18 15:50 63 2418 15:45 62 30 H 144/56 93 L 18 15:36 63 18 15:30 64 30 H 129/54 90 L 18 15:15 64 30 H 125/54 91 L 18 15:00 67 30 H 128/55 91 L 18 14:45 69 30 H 119/50 91 L 18 14:30 71 30 H 118/48 90 L 01/15/18 14:15 71 31 H 117/50 91 L 01/15/18 14:00 71 30 H 111/50 91 L 01/15/18 13:45 72 29 H 112/47 91 L 18 13:30 72 30 H 107/46 92 L 18 13:15 74 26 H 106/45 91 L 18 13:00 65 30 H 128/47 94 L 18 12:45 62 30 H 163/59 94 L 18 12:30 66 30 H 68/34 92 L 18 12:15 63 29 H 107/45 94 L 18 12:10 56 L 18 12:03 56 L 18 12:00 97.3 F L 58 L 30 H 120/55 95 18 11:45 67 30 H 113/49 95 18 11:30 69 30 H 140/57 94 L 18 11:15 68 30 H 134/54 96 18 11:00 71 30 H 129/53 93 L 18 10:45 72 30 H 137/55 94 L Intake and Output 01/15/1818 01/16/18 22:59 06:59 14:59 Intake Total 3242 1122.375 378 Output Total 505 485 720 Balance 2737 637.375 -342 Intake: IV 600 800 300 Sodium Chloride 0.9% 1, 600 800 300 000 ml @ 100 mls/hr IV . Q10H [facility] Rx#:[id number] Intake, IV Titration 2400 270.375 Amount Norepinephrin 16 mg-0.9% 0 Ns Pmx 16 mg In 250 ml @ Titrate IV .Q0M [facility] Rx#: [id number] Propofol 1,000 mg In 400 270.375 Empty Bag 1 bag @ Titrate IV .Q0M [facility] Rx#: [id number] Sodium Chloride 0.9% 1, 2000 000 ml @ 999 mls/hr IV . Q1H1M [facility] Rx#:[id number] Tube Feeding 182 52 78 Other 60 Output: Gastric Drainage 300 Urine 205 185 120 Stool 300 600 Other: Voiding Method Indwelling Catheter Indwelling Catheter Weight 110.2 kg Results - Lab Results Most recent lab results ABG pH 7.23 (7.35-7.45) L 01/16/18 09:02 ABG pCO2 52 mmHg (35-45) H 01/16/18 09:02 ABG pO2 235 mmHg (83-108) H 01/16/18 09:02 ABG HCO3 22 mmol/L (21-25) 01/16/18 09:02 ABG O2 Saturation 98.9 % (94-97) H 01/16/18 09:02 Calcium 7.5 mg/dL (8.4-10.2) L 01/16/18 04:24 Phosphorus 6.0 mg/dL (2.5-4.5) H 01/16/18 04:24 Magnesium 2.6 mg/dL (1.6-2.3) H 01/16/18 04:24 01/16/18 04:24 01/16/18 04:24 Assessment and Plan Plan: Assessment: #1. Acute kidney injury secondary to ATN secondary to septic shock, hypotension and hemodynamic instability. Baseline creatinine is 1. It did peak at 1.4 this admission. It is 1.17 today. Urinalysis is quite benign. #2. Septic shock secondary to influenza A virus and C. diff colitis. Currently on 3 mics of levofed. #3. Hyperkalemia secondary to acute kidney injury and metabolic acidosis. #4. Influenza A infection. #5. C. diff colitis. #6. Metabolic acidosis secondary to acute kidney injury. #7. Mixed hypoxic and hypercapnic respiratory failure. #8. Lung cancer with metastasis. Plan: Maintain isotonic sodium bicarbonate drip to be run at 75 mL an hour. Discontinue normal saline. 2 A of sodium bicarbonate IV push now. 10 units of IV regular insulin with amp of D50 now. Repeat potassium level at 4 PM today. Wean levofed. Avoid nephrotoxic agents and hypotensive episodes. Continue to monitor renal function and urine output closely. No urgent need for renal replacement therapy at this time. Thank you for the consultation. I will continue to follow the patient with you during her hospital stay.
[2018-01-16] MEDS ORDERED: HYDROmorphone 4 MG TABLET PO PRN (11:19)
[2018-01-16] MEDS: IPRATROPIUM-ALBUTEROL 3 ML NEB INHALATION PRN ×3 (11:42→19:00)
--- NOTE | 2018-01-16 12:06 | PCN ---
PROCEDURE NOTE OPERATIVE REPORT: Placement of a right radial arterial line. PREOPERATIVE DIAGNOSIS: Respiratory failure secondary to chronic obstructive pulmonary disease and pneumonia. POSTOPERATIVE DIAGNOSIS: Respiratory failure secondary to chronic obstructive pulmonary disease and pneumonia. ANESTHESIA: Used none deployed. DESCRIPTION OF PROCEDURE: The patient was placed in the supine position, the right wrist was prepared in a sterile fashion and drapes were applied. The right radial artery was palpated, cannulated, and a guidewire was placed. A Cook's catheter was inserted over the guidewire, and the guidewire was removed. Good blood flow and good waveform were noted. Line was secured with sutures. Sterile dressing was applied. No evidence of any immediate complications. MMODL / IJN: [id number] /
[2018-01-16 12:11] LABS: Glucose,Whole Blood 171 mg/dL (75-99)
--- NOTE | 2018-01-16 12:34 | P.PN ---
Subjective Progress Note Date: 01/16/18 Principal diagnosis: Acute hypoxic and hypercapnic respiratory failure secondary to COPD, influenza A , right lower lobe pneumonia. This is a 72-year-old female with history of congestive heart failure, COPD, started having increased shortness of breath around 5 PM yesterday. Patient was noted noted by the ER physician in [place] as having struggled to breathe. She was initially placed on BiPAP, but apparently Deteriorating, and ended up intubated and placed on mechanical ventilation. Patient was transferred to our emergency room, evaluated briefly in the ER, and admitted to the ICU. Patient apparently had what seemed to be a picture of hypoxic and hypercapnic respiratory failure with positive influenza A screening, CT of the chest upon admission showed no evidence of pulmonary embolism, but there was a 4 cm spiculated mass in the right lower lobe abutting the pleural surface, and there is also some consolidation and pneumonic process in the right lower lobe. There was also evidence of the 2 cm left breast mass and a 14 mm nodule in the left lung base. On the mediastinal windows there was evidence of right hilar lymphadenopathy suspicious for deisy metastasis. Upon my evaluation, the patient was noted to be on mechanical ventilation, no family members available at bedside, and most of the information was obtained from the chart from [facility], and from our ER. Labs were reviewed her ABG showed a pO2 of 80 pCO2 of 49 pH of 7.32. Ventilator settings were basically unchanged. Troponin was noted to be a bit elevated at 0.173, doubt clinical significance. WBC count was 25.6 hemoglobin 11.8. D-dimer was 3.39 again her workup for pulmonary embolism was negative. Influenza screen was positive for influenza A. Patient was reevaluated today on 01/11/2018, remains on mechanical ventilation, patient had her sedation on hold earlier this morning, but she became tachypneic , tachycardic, hypertensive, and not appropriate, restless, agitated, hence patient was placed back on propofol drip. Her ventilator settings are basically about the same, increased her tidal volume to 500. ABG showed a pO2 of 63 pCO2 of 47 pH of 7.34 and this is on a 50% FiO2 and PEEP of 5. CBC showed leukocytosis with WBC count of 13.3 hemoglobin is 11.7. Basic metabolic profile is relatively normal, BUN and creatinine are improved with creatinine of 1.18. It was 1.40 yesterday. Chest x-ray showed right lower lobe mass, pneumonic process also noted in the right lower lobe, and a small left pleural effusion also noted. Her WBC count today is improved compared to the WBC count on admission which was over 25,000. Airway mechanics on mechanical ventilation seem to be normal with rectal pressures in the range of 15, peak airway pressure is about 27. Patient was reevaluated today on 01/12/2018, remains on mechanical ventilation, same ventilator settings with FiO2 at 50%, her airway mechanics are reasonable, peak airway pressure is in the 24 range, plateau pressures are in the range of 15, static compliance is in the range of 50. ml/cm h2o, ABG showed a pO2 of 80 pCO2 of 46 pH of 7.32. Chest x-ray continues to show a right lower lobe mass and right lower lobe infiltrate. Slightly improved compared to admission chest x-ray. Tip of the PICC line is noted to be in the right atrium. Labs were reviewed she had a WBC count of 6.4 hemoglobin is 10.9. Basic metabolic profile and renal profile seems to be normal. However patient tested positive for C. difficile colitis, and I went ahead and started the patient on Flagyl via nasogastric tube 500 mg 3 times a day. Patient was given a sedation holiday earlier today, however she became extremely agitated, restless, blood pressure went up, she was tachypneic, tachycardic, and was not following any instructions. Patient was more or less obtunded. Hence patient was placed back on propofol, and she is sedated again. Patient was reevaluated today on 01/13/2018, remains on mechanical ventilation with the same vent settings, remains on FiO2 of 50%, airway mechanics are basically about the same, plateau pressures are in the range of 20, static compliance is in the range of 50. Patient had atrial fibrillation and RVR, placed on Cardizem drip last night, but now she is off the Cardizem, and she was placed on beta blockers. Chest x-ray is about the same. ABG this morning showed a pO2 of 73 pCO2 of 46 pH of 7.31. Basic metabolic profile is relatively normal, BUN is 35 creatinine is 0.90. Patient is back on a small dose of levo fed, presently on 1 g of levo fed, and she is still on antibiotics , bronchodilators, steroids, etc. receiving nutritional support via nasogastric tube. Drains on GI and DVT prophylaxis. No family members available at bedside today. Reevaluated today on 01/14/2018, patient remains about the same, ventilator settings were changed, I have increased her respiratory rate up to 24, still on 50% FiO2, and PEEP of 8. Patient seems to be hemodynamically stable. Not requiring any antiarrhythmic agents intravenously, and not requiring any norepinephrine at this point. She will be given a sedation holiday today, however I strongly doubt the patient is anywhere near ready to be weaned at this point. Chest x-ray continues to demonstrate a right lower lobe mass, and atelectasis with a small right-sided pleural effusion and tiny left pleural effusion. ABG this morning showed a pO2 of 83 pCO2 of 45 pH of 7.33, CBC is relatively normal with a hemoglobin of 10.9. Potassium is 5.6 bicarb is 25. BUN is 41 creatinine is 0.78. Liver enzymes are borderline elevated. Airway mechanics were noted, patient continues to have a static compliance in the range of 50. Patient was reevaluated today on 01/15/2018, remains on mechanical ventilation, quite obtunded, could not cut down on the sedation because of difficulty ventilating the patient when she is restless agitated and becomes very asynchronous with the mechanical ventilator. Her peak airway pressure is rather high, hence I have made some changes on her ventilator settings, patient' s tidal volume is down to 450 assist-control rate is 30 FiO2 is 60% and PEEP is 5. I have also instructed the nurses to give her more sedation and increased the dose of propofol, can also use Ativan intermittently. Labs are abnormal today including hyperkalemia was noted, and I have recommended treatment including calcium gluconate, insulin and glucose, and I will also recommended Kayexalate. ABG was reviewed her pO2 is 72 pCO2 of 49 pH of 7.26, repeat potassium this morning was 5.9. It was 6.4 early this morning. Chest x-ray is basically unchanged. Patient is not requiring any pressors, she is receiving nutritional support. No decision has been made from the family regarding CODE STATUS and possibly terminal weaning since the condition is quite hopeless. Remains on mechanical ventilation, reevaluated today on 01/16/2018. Her ventilator settings are assist control rate of 30 tidal volume of 500 FiO2 is down to 60%, PEEP is at 8. ABG on 65% showed a pO2 of 59 pCO2 of 54 pH of 7.19. However her ABG on 100% showed pO2 of 235 pCO2 52 pH of 7.23. Since then her ventilator settings were adjusted, patient is presently now on 60% FiO2 , rate is 30 and tidal volume is 500. PEEP is at 8. Chest x-ray is basically the same showing mostly right lower lobe mass, and minimal infiltrate in the right lower lobe. Sputum is only showing Mariah albicans so far. Her elevated potassium has been an issue over the last 24 hours, hence patient was placed on sodium bicarb drip, she did receive IV pushes of sodium bicarb, calcium gluconate, she also received Kayexalate, and intermittently has been receiving Lasix. Her last potassium was 5.9. I believe the sodium bicarb drip is going to help her potassium patient does have a combination of respiratory and metabolic acidosis. Blood pressure is fluctuating up and down, intermittently on norepinephrine, presently on 2 g of norepinephrine to maintain a mean arterial pressure above 65. Nutrition-garber, patient is on tube feeding. Via orogastric tube. No family members could be reached today to discuss the CODE STATUS again, for the time being the patient remains full code. Objective - Vital Signs Vital signs: Vital Signs Temp 97.9 F 01/16/18 12:00 Pulse 72 01/16/18 12:00 Resp 30 H 01/16/18 12:00 BP 143/56 01/16/18 12:00 Pulse Ox 98 01/16/18 12:00 Intake & Output 01/15/18 01/16/18 01/16/18 18:59 06:59 18:59 Intake Total 5292.387 1800.375 767.125 Output Total 340 920 740 Balance 4952.387 880.375 27.125 Weight 110.2 kg 110.2 kg Intake: IV 950 1200 300 Sodium Chloride 0.9% 1, 950 1200 300 000 ml @ 100 mls/hr IV . Q10H [facility] Rx#:[id number] Intake, IV Titration 3576.387 470.375 333.125 Amount Calcium Gluconate 1,000 100 mg In Sodium Chloride 0.9 % 100 ml @ 100 mls/hr IVPB ONCE ONE Rx#: [id number] Dextrose 5% in Water 1, 150 000 ml @ 75 mls/hr IV . [id number] [facility] with Sodium Bicarb (1 Meq/ml) 150 ml Rx#:[id number] Norepinephrin 16 mg-0.9% 5.045 0 43.125 Ns Pmx 16 mg In 250 ml @ Titrate IV .Q0M [facility] Rx#: [id number] Propofol 1,000 mg In 471.342 470.375 100 Empty Bag 1 bag @ Titrate IV .Q0M [facility] Rx#: [id number] Sodium Chloride 0.9% 1, 40 000 ml @ 20 mls/hr IV . Q24H [facility] Rx#:[id number] Sodium Chloride 0.9% 1, 1000 000 ml @ 999 mls/hr IV . Q1H1M ONE Rx#:[id number] Sodium Chloride 0.9% 1, 2000 000 ml @ 999 mls/hr IV . Q1H1M ONE Rx#:[id number] Tube Feeding 286 130 104 Other 480 30 Output: Gastric Drainage 300 Urine 340 320 140 Stool 300 600 Other: Voiding Method Indwelling Catheter Indwelling Catheter ABP, PAP, CO, CI - Last Documented Arterial Blood Pressure 143/51 - Exam Physical Exam: Revealed a 72-year-old female, intubated, on mechanical ventilation, in no distress, fully sedated. HEENT:[Neck is supple.] [No neck masses.] [No thyromegaly.] [No JVD.] Endotracheal tube is intact, moist mucous membranes were noted. No neck masses , no JVD was appreciated. Chest: [Crackles at the bases bilaterally, especially at the right base, no rhonchi, no wheezes were appreciated. Symmetrical chest expansion was noted..] Cardiac Exam: [Normal S1 and S2, no S3 gallop, no murmur.] Abdomen: [Obese, Soft, nontender, no megaly, no rebound, no guarding, normal bowel sounds.] Fecal management system is noted. Extremities: [Evidence of chronic lymphedema, and resolving cellulitis from the left lower extremity was noted.] Swelling noted in upper extremities, both forearms. And the skin seems to be thin and friable. Neurological Exam: Cannot be assessed, patient is fully sedated, on mechanical ventilation. Psychiatric: Cannot be assessed. Lymphatics: No lymphadenopathy was appreciated. - Labs CBC & Chem 7: 01/16/18 04:24 01/16/18 04:24 Labs: Abnormal Lab Results - Last 24 Hours (Table) 01/15/18 01/15/18 01/15/18 Range/Units 08:00 16:30 16:54 MCHC (31.0-37.0) g/dL RDW (11.5-15.5) % Plt Count (150-450) k/uL ABG pH (7.35-7.45) ABG pCO2 (35-45) mmHg ABG pO2 (83-108) mmHg ABG O2 Saturation (94-97) % Potassium 6.4 H* 6.0 H (3.5-5.1) mmol/L Chloride 113 H (98-107) mmol/L Carbon Dioxide 20 L (22-30) mmol/L BUN 59 H (7-17) mg/dL Creatinine (0.52-1.04) mg/dL Glucose 204 H (74-99) mg/dL POC Glucose (mg/dL) 197 H (75-99) mg/dL Calcium 7.5 L (8.4-10.2) mg/dL Phosphorus 4.7 H 4.8 H (2.5-4.5) mg/dL Magnesium 3.0 H 2.7 H (1.6-2.3) mg/dL ALT 65 H (9-52) U/L Total Protein 4.4 L (6.3-8.2) g/dL Albumin 2.1 L (3.5-5.0) g/dL 01/15/18 01/15/18 01/16/18 Range/Units 19:45 23:55 04:24 MCHC 28.4 L (31.0-37.0) g/dL RDW 16.2 H (11.5-15.5) % Plt Count 124 L (150-450) k/uL ABG pH (7.35-7.45) ABG pCO2 (35-45) mmHg ABG pO2 (83-108) mmHg ABG O2 Saturation (94-97) % Potassium 5.8 H (3.5-5.1) mmol/L Chloride (98-107) mmol/L Carbon Dioxide (22-30) mmol/L BUN (7-17) mg/dL Creatinine (0.52-1.04) mg/dL Glucose (74-99) mg/dL POC Glucose (mg/dL) 216 H (75-99) mg/dL Calcium (8.4-10.2) mg/dL Phosphorus (2.5-4.5) mg/dL Magnesium (1.6-2.3) mg/dL ALT (9-52) U/L Total Protein (6.3-8.2) g/dL Albumin (3.5-5.0) g/dL 01/16/18 01/16/18 01/16/18 Range/Units 04:24 05:17 08:17 MCHC (31.0-37.0) g/dL RDW (11.5-15.5) % Plt Count (150-450) k/uL ABG pH 7.19 L* (7.35-7.45) ABG pCO2 54 H (35-45) mmHg ABG pO2 59 L (83-108) mmHg ABG O2 Saturation 87.7 L (94-97) % Potassium 5.9 H (3.5-5.1) mmol/L Chloride 112 H (98-107) mmol/L Carbon Dioxide 20 L (22-30) mmol/L BUN 70 H (7-17) mg/dL Creatinine 1.17 H (0.52-1.04) mg/dL Glucose 164 H (74-99) mg/dL POC Glucose (mg/dL) 139 H (75-99) mg/dL Calcium 7.5 L (8.4-10.2) mg/dL Phosphorus 6.0 H (2.5-4.5) mg/dL Magnesium 2.6 H (1.6-2.3) mg/dL ALT (9-52) U/L Total Protein (6.3-8.2) g/dL Albumin (3.5-5.0) g/dL 01/16/18 01/16/18 Range/Units 09:02 12:09 MCHC (31.0-37.0) g/dL RDW (11.5-15.5) % Plt Count (150-450) k/uL ABG pH 7.23 L (7.35-7.45) ABG pCO2 52 H (35-45) mmHg ABG pO2 235 H (83-108) mmHg ABG O2 Saturation 98.9 H (94-97) % Potassium (3.5-5.1) mmol/L Chloride (98-107) mmol/L Carbon Dioxide (22-30) mmol/L BUN (7-17) mg/dL Creatinine (0.52-1.04) mg/dL Glucose (74-99) mg/dL POC Glucose (mg/dL) 171 H (75-99) mg/dL Calcium (8.4-10.2) mg/dL Phosphorus (2.5-4.5) mg/dL Magnesium (1.6-2.3) mg/dL ALT (9-52) U/L Total Protein (6.3-8.2) g/dL Albumin (3.5-5.0) g/dL Assessment and Plan Assessment: Impression: 1 acute hypoxic and hypercapnic respiratory failure secondary to acute exacerbation of COPD, triggered by influenza A, right lower lobe pneumonia is strongly suspected, community-acquired, and sepsis. 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 3 left breast nodule likely malignant unless proven otherwise seen on CT of the chest. This was confirmed by physical examination 4 acute sepsis and septic shock requiring norepinephrine in spite of of fluid boluses upon presentation. Resolved, patient is off norepinephrine at this point. 5 acute right lower lobe pneumonia, community-acquired 6 acute exacerbation of COPD, patient is known to have history of COPD and prednisone dependenton her history. 7 history of congestive heart failure, not clear whether systolic or diastolic based on the history. Ejection fraction is presently unknown. 8 acute C. difficile colitis, started on Flagyl. Recommendation: Continue present supportive care measures including mechanical ventilation, blood pressure support, nutritional support, hemodynamic support, antibiotics, bronchodilators, steroids, workup of her underlying lung mass could be done on outpatient basis assuming the patient will make it through this hospitalization. However I have a feeling that the patient is a very poor prognosis and I strongly doubt if she will pull through this episode of respiratory failure. Patient was started on sodium bicarb drip for her underlying metabolic acidosis in addition to her respiratory acidosis, her ventilator settings were adjusted, and sodium bicarb will likely help bring the potassium down. Again prognosis is extremely poor, family would be approached again on again regarding CODE STATUS and possibly consider comfort care measures. Critical care time is 35 minutes not including the time spent on procedures/arterial line placement. Time with Patient: Greater than 30
[2018-01-16 13:43] LABS: ABG Base Excess -6.9 mmol/L; ABG HCO3 21 mmol/L (21-25); ABG Oxygen Saturation 91.4 % (94-97); ABG PCO2 51 mmHg (35-45); ABG PH 7.22 (7.35-7.45); ABG PO2 64 mmHg (83-108); ABG TCO2 22 mmol/L (19-24)
[2018-01-16] MEDS ORDERED: SODIUM BICARB 8.4% 50 ML SYR (1 MEQ/ML) IV ONE (17:01)
[2018-01-16] MEDS: ALBUMIN HUMAN 25% 50 ML in EMPTY BAG 1 BAG IVPB SCH ×2 (17:20→18:10)
[2018-01-16 18:03] LABS: Glucose,Whole Blood 189 mg/dL (75-99)
[2018-01-16] MEDS ORDERED: METOPROLOL TARTRATE 25 MG TAB PO STA (18:41)
--- NOTE | 2018-01-16 19:54 | PN ---
PROGRESS NOTE DATE OF SERVICE: 01/16/2018 Patient is seen at bedside in ICU, remains mechanically ventilated. VITAL SIGNS: Temperature 97.9, pulse 72, respiration 30, blood pressure 143/56, O2 saturation 98%. EXAMINATION: General examination: 72-year-old female who is intubated, fully sedated. HEENT: Atraumatic, normocephalic. Pupils equal and reactive to light. Extraocular movements cannot be . Buccal mucosa is moist. ET tube intact. NECK: Supple. No goiter, lymphadenopathy. JVD is negative. No carotid bruit heard. Lungs bibasilar crackles. No wheezing or rhonchi. Heart is regular rate and rhythm without any murmurs or gallop rhythm. ABDOMEN: Soft, obese. Bowel sounds positive. EXTREMITIES: No edema, clubbing or cyanosis. Neurological examination cannot be evaluated. Psychiatric examination cannot be done. LAB: CBC, white blood count 5.4, hemoglobin 12, hematocrit 42.3, and platelet count of 124. Chemical profile sodium 139, potassium 5.9, chloride 112, bicarb 20, BUN 70, creatinine 1.17, glucose 164. ASSESSMENT: 1. Acute hypoxemic hypercapnic respiratory failure. 2. Acute exacerbation chronic obstructive pulmonary disease. 3. Influenza A. 4. Right lower lobe pneumonia. 5. The right lung mass strongly suspicious for bronchogenic carcinoma. 6. Left breast nodule, likely malignant as seen on CT of the chest. 7. Acute sepsis and septic shock. The patient stays on norepinephrine despite fluid boluses. 8. The patient was started on norepinephrine in spite of fluid boluses. The patient is off of norepinephrine. 9. History of congestive heart failure, systolic versus diastolic. 10.Acute C diff colitis. Patient remains on Flagyl. [employer] is following. Plan is to continue with mechanical ventilation support. Nutritional and hemodynamics. Patient on antibiotics, bronchodilators and steroids. Workup on lung mass once patient is stable. MMODL / IJN: [id number] /
[2018-01-17] MEDS: PROPOFOL 1,000 MG in EMPTY BAG 1 BAG IV SCH ×10 (00:07→20:10)
[2018-01-17] MEDS: methylPREDNISolone SOD SUCCI 125 MG/2 ML VIAL IV SCH ×2 (00:07→06:24)
[2018-01-17 00:12] LABS: Glucose,Whole Blood 170 mg/dL (75-99)
[2018-01-17] MEDS: INSULIN ASPART 100 UNIT/ML 1 ML 10 ML VIAL SQ SCH ×5 (00:14→23:52)
[2018-01-17] MEDS: DEXTROSE 5% IN WATER 1,000 ML with SODIUM BICARB (1 MEQ/ML) 150 ML IV SCH ×2 (02:05→15:55)
[2018-01-17] MEDS: NOREPINEPHRIN 16 MG-0.9%NS PMX 16 MG/250 ML ML IV SCH (05:26)
[2018-01-17] MEDS: DILTIAZEM 125 MG in SODIUM CHLORIDE 0.9% 100 ML IV SCH ×2 (05:27→15:23)
[2018-01-17 05:36] LABS: Anisocytosis Slight; HCT 34.7 % (34.0-46.0); HGB 10.3 gm/dL (11.4-16.0); Hypochromasia Marked; MCH 27.5 pg (25.0-35.0); MCHC 29.7 g/dL (31.0-37.0); MCV 92.5 fL (80.0-100.0); Mean Platelet Volume 8.7; RBC 3.75 m/uL (3.80-5.40); RDW 16.2 % (11.5-15.5); WBC 7.8 k/uL (3.8-10.6)
[2018-01-17 05:39] LABS: Platelet Count 102 k/uL (150-450)
[2018-01-17 05:52] LABS: Albumin 2.3 g/dL (3.5-5.0); Calcium 7.4 mg/dL (8.4-10.2); Magnesium 2.4 mg/dL (1.6-2.3); Phosphorus 7.1 mg/dL (2.5-4.5); Potassium 5.6 mmol/L (3.5-5.1); Total Bilirubin 0.3 mg/dL (0.2-1.3); Total Protein 4.4 g/dL (6.3-8.2)
[2018-01-17 06:25] LABS: Glucose,Whole Blood 179 mg/dL (75-99)
[2018-01-17] MEDS ORDERED: INSULIN REGULAR 100 UNIT/ML VIAL IV ONE ×2 (06:33→16:23)
[2018-01-17] MEDS ORDERED: DEXTROSE 50%-WATER 50 ML SYRINGE IVP STA ×2 (06:34→16:23)
[2018-01-17 08:01] LABS: ABG Base Excess -3.2 mmol/L; ABG HCO3 24 mmol/L (21-25); ABG PCO2 54 mmHg (35-45); ABG PH 7.26 (7.35-7.45); ABG PO2 279 mmHg (83-108); ABG TCO2 26 mmol/L (19-24)
--- NOTE | 2018-01-17 08:26 | P.PN ---
Subjective Progress Note Date: 01/17/18 Principal diagnosis: Respiratory failure influenza A pneumonia COPD Progress note dated 01/17/2018 72-year-old female who apparently was admitted on January 10. She apparently was intubated on that same day. The patient was admitted with a diagnosis of influenza A pneumonia COPD and respiratory failure. The patient's currently on the mechanical ventilator has made no progress. Chest x-ray shows a right lung mass and also by basilar infiltrates or effusions and/or pneumonia. He is currently on the assist control mode rate of 30 tidal volume 500 FiO2 100% PEEP of 8. Arterial blood gases show a PaO2 of 279 a PaCO2 of 54 and a pH of 7.26. The patient apparently is still a full code and has not had any weaning. The patient's on a dextrose IV with 3 ampules of sodium bicarbonate at 75 mL an hour propofol at 65 mics per kilogram per minute and norepinephrine at 6 mics per minute and tube feedings at 30 with a goal of 30. CODE STATUS should be addressed. It was mentioned by my partner yesterday on his rounds. The sputum just shows Mariah. Chest x-ray looks bad. Overall prognosis is poor. Vent changes were made in the assist control mode was increased from 30to 36 the tidal volume was decreased from 500 to 400 and the FiO2 was dropped from 100 to 50%. Labs x-rays a medications are all reviewed. Objective - Vital Signs Vital signs: Vital Signs Temp 97.5 F L 01/17/18 04:00 Pulse 60 01/17/18 07:00 Resp 30 H 01/17/18 07:00 BP 112/53 01/17/18 04:00 Pulse Ox 99 01/17/18 07:00 Intake & Output 01/16/18 01/17/18 01/17/18 18:59 06:59 18:59 Intake Total 8607.299 4566.752 205.08 Output Total 870 505 40 Balance 958.765 9700.752 165.08 Weight 110.2 kg 111.7 kg Intake: IV 400 1140 95 Albumin Human 25% 50 ml 100 In Empty Bag 1 bag @ 100 mls/hr IVPB Q1H SUNG Rx#: [id number] Dextrose 5% in Water 1, 900 75 000 ml @ 75 mls/hr IV . [id number] SUNG with Sodium Bicarb (1 Meq/ml) 150 ml Rx#:[id number] Sodium Chloride 0.9% 1, 300 240 20 000 ml @ 100 mls/hr IV . Q10H SUNG Rx#:[id number] Intake, IV Titration 1046.791 497.752 80.08 Amount Dextrose 5% in Water 1, 600 000 ml @ 75 mls/hr IV . [id number] SUNG with Sodium Bicarb (1 Meq/ml) 150 ml Rx#:[id number] Norepinephrin 16 mg-0.9% 54.891 98.209 Ns Pmx 16 mg In 250 ml @ Titrate IV .Q0M SUNG Rx#: [id number] Propofol 1,000 mg In 231.9 399.543 80.08 Empty Bag 1 bag @ Titrate IV .Q0M SUNG Rx#: [id number] Sodium Chloride 0.9% 1, 160 000 ml @ 20 mls/hr IV . Q24H SUNG Rx#:[id number] Tube Feeding 212 430 30 Other 90 120 Output: Urine 270 305 40 Stool 600 200 Other: Voiding Method Indwelling Catheter Indwelling Catheter ABP, PAP, CO, CI - Last Documented Arterial Blood Pressure 130/55 - Exam No acute distress, Patient's sedated. Oral endotracheal tube and NG tube noted.. HEENT examination is grossly unremarkable. Mucous membranes are moist. No oral lesions. Neck supple. Full range of motion. No adenopathy thyromegaly or neck vein distention. Cardiovascular examination reveals regular rhythm rate. S1-S2 normal. No S3 or S4. No discernible murmur noted. Lungs reveal diffuse bilateral rhonchi. Breath sounds are diminished. No wheezes. No crackles.. Abdomen soft bowel sounds are heard. No masses or tenderness. Extremities are intact. No cyanosis clubbing or edema. Skin is without rash or lesion. Neurologic examination cannot be assessed as patient is sedated - Labs CBC & Chem 7: 01/17/18 05:25 01/17/18 05:25 Labs: Abnormal Lab Results - Last 24 Hours (Table) 01/16/18 01/16/18 01/16/18 Range/Units 08:17 09:02 12:09 RBC (3.80-5.40) m/uL Hgb (11.4-16.0) gm/dL MCHC (31.0-37.0) g/dL RDW (11.5-15.5) % Plt Count (150-450) k/uL ABG pH 7.19 L* 7.23 L (7.35-7.45) ABG pCO2 54 H 52 H (35-45) mmHg ABG pO2 59 L 235 H (83-108) mmHg ABG Total CO2 (19-24) mmol/L ABG O2 Saturation 87.7 L 98.9 H (94-97) % Potassium (3.5-5.1) mmol/L BUN (7-17) mg/dL Creatinine (0.52-1.04) mg/dL Glucose (74-99) mg/dL POC Glucose (mg/dL) 171 H (75-99) mg/dL Calcium (8.4-10.2) mg/dL Phosphorus (2.5-4.5) mg/dL Magnesium (1.6-2.3) mg/dL Total Protein (6.3-8.2) g/dL Albumin (3.5-5.0) g/dL 01/16/18 01/16/18 01/16/18 Range/Units 13:42 16:05 18:00 RBC (3.80-5.40) m/uL Hgb (11.4-16.0) gm/dL MCHC (31.0-37.0) g/dL RDW (11.5-15.5) % Plt Count (150-450) k/uL ABG pH 7.22 L (7.35-7.45) ABG pCO2 51 H (35-45) mmHg ABG pO2 64 L (83-108) mmHg ABG Total CO2 (19-24) mmol/L ABG O2 Saturation 91.4 L (94-97) % Potassium 5.8 H (3.5-5.1) mmol/L BUN (7-17) mg/dL Creatinine (0.52-1.04) mg/dL Glucose (74-99) mg/dL POC Glucose (mg/dL) 189 H (75-99) mg/dL Calcium (8.4-10.2) mg/dL Phosphorus (2.5-4.5) mg/dL Magnesium (1.6-2.3) mg/dL Total Protein (6.3-8.2) g/dL Albumin (3.5-5.0) g/dL 01/16/18 01/17/18 01/17/18 Range/Units 23:05 00:12 05:25 RBC 3.75 L (3.80-5.40) m/uL Hgb 10.3 L (11.4-16.0) gm/dL MCHC 29.7 L (31.0-37.0) g/dL RDW 16.2 H (11.5-15.5) % Plt Count 102 L (150-450) k/uL ABG pH (7.35-7.45) ABG pCO2 (35-45) mmHg ABG pO2 (83-108) mmHg ABG Total CO2 (19-24) mmol/L ABG O2 Saturation (94-97) % Potassium 5.5 H (3.5-5.1) mmol/L BUN (7-17) mg/dL Creatinine (0.52-1.04) mg/dL Glucose (74-99) mg/dL POC Glucose (mg/dL) 170 H (75-99) mg/dL Calcium (8.4-10.2) mg/dL Phosphorus (2.5-4.5) mg/dL Magnesium (1.6-2.3) mg/dL Total Protein (6.3-8.2) g/dL Albumin (3.5-5.0) g/dL 01/17/18 01/17/18 01/17/18 Range/Units 05:25 06:21 07:56 RBC (3.80-5.40) m/uL Hgb (11.4-16.0) gm/dL MCHC (31.0-37.0) g/dL RDW (11.5-15.5) % Plt Count (150-450) k/uL ABG pH 7.26 L (7.35-7.45) ABG pCO2 54 H (35-45) mmHg ABG pO2 279 H (83-108) mmHg ABG Total CO2 26 H (19-24) mmol/L ABG O2 Saturation 100.0 H (94-97) % Potassium 5.6 H (3.5-5.1) mmol/L BUN 87 H* (7-17) mg/dL Creatinine 1.59 H (0.52-1.04) mg/dL Glucose 192 H (74-99) mg/dL POC Glucose (mg/dL) 179 H (75-99) mg/dL Calcium 7.4 L (8.4-10.2) mg/dL Phosphorus 7.1 H (2.5-4.5) mg/dL Magnesium 2.4 H (1.6-2.3) mg/dL Total Protein 4.4 L (6.3-8.2) g/dL Albumin 2.3 L (3.5-5.0) g/dL Assessment and Plan Assessment: Assessment Acute hypoxemic and hypercapnic respiratory failure, secondary to COPD exacerbation, influenza A, right lower lobe pneumonia with sepsis. Right lung mass, strongly suspicious for bronchogenic carcinoma with possible metastasis Left breast mass, likely malignant Acute sepsis with septic shock, requiring fluids and pressors. Community-acquired right lower lobe pneumonia COPD exacerbation History of congestive heart failure Acute C. difficile colitis Plan: Plan dated 01/17/2018 The patient's overall prognosis remains very poor. He remains on dextrose IV with sodium bicarbonate, propofol for sedation and norepinephrine. She has also receiving tube feeds. Some ventilator changes were made today. Will need to have a discussion with the family. She's been on the ventilator since the , roughly 7 days. We should move towards tracheostomy and PEG tube placement if the family wants to continue life support. We'll continue to follow closely. No additional recommendations are made. Again prognosis is very poor. Critical care time 36 minutes Time with Patient: Greater than 30
[2018-01-17] MEDS: metroNIDAZOLE 500 MG TAB PO SCH ×3 (08:27→22:11)
[2018-01-17] MEDS: FAMOTIDINE 20 MG/2 ML VIAL IV SCH (08:27)
[2018-01-17] MEDS: cefTRIAXone IN SWFI 1,000 MG/10 ML SYRINGE IVP SCH (08:27)
[2018-01-17] MEDS: HEPARIN SODIUM,PORCINE 5,000 UNIT/ML 1 ML VIAL SQ SCH ×2 (08:27→20:11)
[2018-01-17] MEDS: METOPROLOL TARTRATE 25 MG TAB PO SCH (08:27)
[2018-01-17] MEDS: CHLORHEXIDINE GLUCONATE 15 ML CUP MUCOUS MEM SCH ×2 (08:28→20:11)
[2018-01-17] MEDS: IPRATROPIUM-ALBUTEROL 3 ML NEB INHALATION PRN ×4 (08:40→19:02)
[2018-01-17] MEDS: SODIUM CHLORIDE 0.9% 1,000 ML IV SCH (09:54)
--- NOTE | 2018-01-17 10:33 | XR ---
EXAMINATION TYPE: XR chest 1V portable DATE OF EXAM: 01/17/2018 COMPARISON: Prior chest x-ray 01/16/2018 HISTORY: Intubated TECHNIQUE: Single frontal view of the chest is obtained. FINDINGS: Endotracheal tube, NG tube, right-sided PICC line, overlying cardiac leads are present. Ri ght lower lobe lung mass is again noted. No evident pneumothorax. Blunting of the costophrenic angle on the left likely due to pleural effusion and associated atelectasis, correlate to exclude. Heart si ze is stable. IMPRESSION: Similar findings to prior exam. Lung mass, possible associated effusion.
[2018-01-17] MEDS ORDERED: ALBUMIN HUMAN 5% 250 ML in EMPTY BAG 1 BAG IVPB ONE (10:43)
--- NOTE | 2018-01-17 10:48 | P.PN ---
Subjective Patient is seen in follow-up for acute kidney injury. Her creatinine is up to 1.5 and today. She remains intubated and sedated. Her urine output has been about 30 mL an hour. She did get IV Lasix yesterday. She is currently on 8 mics of levofed. Lopressor was held yesterday due to low blood pressures but she went into A. fib with RVR. She did receive Lopressor this morning. She still maintained on isotonic sodium bicarbonate drip running at 75 mL an hour. She is also on tube feeds. Vital signs are stable. General: The patient appeared well nourished and normally developed. HEENT: Head exam is unremarkable. Neck is without jugular venous distension. LUNGS: Lungs are clear to auscultation and percussion. Breath sounds decreased. HEART: Rate and Rhythm are regular. First and second heart sounds normal. No murmurs, rubs or gallops. ABDOMEN: Abdominal exam reveals normal bowel sounds. Non-tender and non- distended. No evidence of peritonitis. EXTREMITITES: 2+ edema. Objective - Vital Signs Vital signs: Vital Signs Temp 94.3 F L 01/17/18 08:00 Pulse 57 L 01/17/18 10:00 Resp 36 H 01/17/18 10:00 BP 112/53 01/17/18 04:00 Pulse Ox 88 L 01/17/18 10:00 Intake & Output 01/16/18 01/17/18 01/17/18 18:59 06:59 18:59 Intake Total 3629.545 3331.752 780.440 Output Total 870 505 130 Balance 038.141 3825.752 650.440 Weight 110.2 kg 111.7 kg Intake: IV 400 1140 380 Albumin Human 25% 50 ml 100 In Empty Bag 1 bag @ 100 mls/hr IVPB Q1H [facility]G Rx#: [id number] Dextrose 5% in Water 1, 900 300 000 ml @ 75 mls/hr IV . [id number] SUNG with Sodium Bicarb (1 Meq/ml) 150 ml Rx#:[id number] Sodium Chloride 0.9% 1, 300 240 60 000 ml @ 100 mls/hr IV . Q10H SUNG Rx#:[id number] Sodium Chloride 0.9% 1, 20 000 ml @ 20 mls/hr IV . Q24H SUNG Rx#:[id number] Intake, IV Titration 1046.791 497.752 190.440 Amount Dextrose 5% in Water 1, 600 000 ml @ 75 mls/hr IV . [id number] SUNG with Sodium Bicarb (1 Meq/ml) 150 ml Rx#:[id number] Norepinephrin 16 mg-0.9% 54.891 98.209 26.705 Ns Pmx 16 mg In 250 ml @ Titrate IV .Q0M SUNG Rx#: [id number] Propofol 1,000 mg In 231.9 399.543 163.735 Empty Bag 1 bag @ Titrate IV .Q0M SUNG Rx#: [id number] Sodium Chloride 0.9% 1, 160 000 ml @ 20 mls/hr IV . Q24H SUNG Rx#:[id number] Tube Feeding 212 430 180 Other 90 120 30 Output: Urine 270 305 130 Stool 600 200 Other: Voiding Method Indwelling Catheter Indwelling Catheter Indwelling Catheter ABP, PAP, CO, CI - Last Documented Arterial Blood Pressure 101/43 - Labs CBC & Chem 7: 01/17/18 05:25 01/17/18 05:25 Labs: Abnormal Lab Results - Last 24 Hours (Table) 01/16/18 01/16/18 01/16/18 Range/Units 12:09 13:42 16:05 RBC (3.80-5.40) m/uL Hgb (11.4-16.0) gm/dL MCHC (31.0-37.0) g/dL RDW (11.5-15.5) % Plt Count (150-450) k/uL ABG pH 7.22 L (7.35-7.45) ABG pCO2 51 H (35-45) mmHg ABG pO2 64 L (83-108) mmHg ABG Total CO2 (19-24) mmol/L ABG O2 Saturation 91.4 L (94-97) % Potassium 5.8 H (3.5-5.1) mmol/L BUN (7-17) mg/dL Creatinine (0.52-1.04) mg/dL Glucose (74-99) mg/dL POC Glucose (mg/dL) 171 H (75-99) mg/dL Calcium (8.4-10.2) mg/dL Phosphorus (2.5-4.5) mg/dL Magnesium (1.6-2.3) mg/dL Total Protein (6.3-8.2) g/dL Albumin (3.5-5.0) g/dL 01/16/18 01/16/18 01/17/18 Range/Units 18:00 23:05 00:12 RBC (3.80-5.40) m/uL Hgb (11.4-16.0) gm/dL MCHC (31.0-37.0) g/dL RDW (11.5-15.5) % Plt Count (150-450) k/uL ABG pH (7.35-7.45) ABG pCO2 (35-45) mmHg ABG pO2 (83-108) mmHg ABG Total CO2 (19-24) mmol/L ABG O2 Saturation (94-97) % Potassium 5.5 H (3.5-5.1) mmol/L BUN (7-17) mg/dL Creatinine (0.52-1.04) mg/dL Glucose (74-99) mg/dL POC Glucose (mg/dL) 189 H 170 H (75-99) mg/dL Calcium (8.4-10.2) mg/dL Phosphorus (2.5-4.5) mg/dL Magnesium (1.6-2.3) mg/dL Total Protein (6.3-8.2) g/dL Albumin (3.5-5.0) g/dL 01/17/18 01/17/18 01/17/18 Range/Units 05:25 05:25 06:21 RBC 3.75 L (3.80-5.40) m/uL Hgb 10.3 L (11.4-16.0) gm/dL MCHC 29.7 L (31.0-37.0) g/dL RDW 16.2 H (11.5-15.5) % Plt Count 102 L (150-450) k/uL ABG pH (7.35-7.45) ABG pCO2 (35-45) mmHg ABG pO2 (83-108) mmHg ABG Total CO2 (19-24) mmol/L ABG O2 Saturation (94-97) % Potassium 5.6 H (3.5-5.1) mmol/L BUN 87 H* (7-17) mg/dL Creatinine 1.59 H (0.52-1.04) mg/dL Glucose 192 H (74-99) mg/dL POC Glucose (mg/dL) 179 H (75-99) mg/dL Calcium 7.4 L (8.4-10.2) mg/dL Phosphorus 7.1 H (2.5-4.5) mg/dL Magnesium 2.4 H (1.6-2.3) mg/dL Total Protein 4.4 L (6.3-8.2) g/dL Albumin 2.3 L (3.5-5.0) g/dL 01/17/18 Range/Units 07:56 RBC (3.80-5.40) m/uL Hgb (11.4-16.0) gm/dL MCHC (31.0-37.0) g/dL RDW (11.5-15.5) % Plt Count (150-450) k/uL ABG pH 7.26 L (7.35-7.45) ABG pCO2 54 H (35-45) mmHg ABG pO2 279 H (83-108) mmHg ABG Total CO2 26 H (19-24) mmol/L ABG O2 Saturation 100.0 H (94-97) % Potassium (3.5-5.1) mmol/L BUN (7-17) mg/dL Creatinine (0.52-1.04) mg/dL Glucose (74-99) mg/dL POC Glucose (mg/dL) (75-99) mg/dL Calcium (8.4-10.2) mg/dL Phosphorus (2.5-4.5) mg/dL Magnesium (1.6-2.3) mg/dL Total Protein (6.3-8.2) g/dL Albumin (3.5-5.0) g/dL Assessment and Plan Plan: Assessment: #1. Acute kidney injury secondary to ATN secondary to septic shock, hypotension and hemodynamic instability. Baseline creatinine is 1. It is 1.59 today. Urinalysis is quite benign. #2. Septic shock secondary to influenza A virus and C. diff colitis. Currently on 8 mics of levofed. #3. Hyperkalemia secondary to acute kidney injury and metabolic acidosis. #4. Influenza A infection. #5. C. diff colitis. #6. Metabolic acidosis secondary to acute kidney injury. Improved. #7. Mixed hypoxic and hypercapnic respiratory failure. #8. Lung cancer with metastasis. Also has a lump in her breast. Plan: Maintain isotonic sodium bicarbonate drip to be run at 75 mL an hour. She did receive IV insulin with D50 this morning. Potassium level to be checked this evening. Wean levofed. Avoid nephrotoxic agents and hypotensive episodes. Continue to monitor renal function and urine output closely. No urgent need for renal replacement therapy at this time. Overall prognosis poor. 25 g of albumin today. May repeat Lasix 80 mg IV once if urine output remains below 30 cc an hour for 3 hours.
[2018-01-17] MEDS ORDERED: ALBUMIN HUMAN 5% 250 ML IVPB ONE (10:49)
[2018-01-17] MEDS: methylPREDNISolone SOD SUCCI 40 MG/ML 1 ML VIAL IV SCH ×3 (11:46→23:55)
[2018-01-17] MEDS: BUDESONIDE 0.5 MG/2 ML NEBU INHALATION SCH (11:48)
[2018-01-17] MEDS: FORMOTEROL FUMARATE 20 MCG/2 ML NEBU INHALATION SCH (11:49)
[2018-01-17 11:51] LABS: Glucose,Whole Blood 164 mg/dL (75-99)
[2018-01-17] MEDS ORDERED: FUROSEMIDE 10 MG/ML 10 ML VIAL IV STA (15:21)
[2018-01-17 18:15] LABS: Glucose,Whole Blood 185 mg/dL (75-99)
--- NOTE | 2018-01-17 19:12 | P.PN ---
Subjective Progress Note Date: 01/17/18 Progress note being dictated for Dr. Arellano. Interval history:Patient was admitted secondary to influenza tracheobronchitis and COPD exacerbation patient admits intubated patient has poor residual lung function. Normal uses 2.5 L of onset at home. Patient remains on the ventilator without any improvement in her respiratory status. Patient is still on low dose of norepinephrine. On high-dose of the sedation. 01/12/2018 No overnight events had clinical condition remains the same remains on 1 mcg of levo fed remains on high-dose of propofol 01/13/2018 Patient went into atrial fibrillation was given a dose of Cardizem after which heart rate came down and patient is presently on metoprolol patient is also on norepinephrine at a very low-dose patient is found to have C. diff, levofloxacin will be discontinued patient was started on Rocephin although patient is ALLERGIC to penicillin as she is intubated we'll try Rocephin from tomorrow. Will discuss with pulmonology to see if he followed antibodies can be discontinued except for metronidazole which is being used for C. diff colitis. 01/14/2018 Patient can use to have diarrhea and feet has a fecal management system no significant improvement in respiratory status patient is hyperkalemic and patient is already having diarrhea because of which I'm not giving her Late will repeat potassium. Will discuss with the family later today. Patient is off pressor support at this time. 01/17/18 chest x-ray reporting similar findings , ABGs noted, vent changes made May with PEEP increased up to 10. Staff reports patient did not follow commands during the last sedation holiday. Minimal thick white sputum suctioned from endotracheal tube. Beta moriah held yesterday secondary to hypotension and patient developed atrial fibrillation with RVR during the night. Maintained on sodium bicarb and norepinephrine drips. Renal Function worsening. Unable to obtain review of systems given patient intubated Active Medications Acetaminophen (Tylenol Suppository) 650 mg RECTAL Q4HR PRN PRN Reason: Fever And/ Or Mild Pain Albuterol/Ipratropium (Duoneb 0.5 Mg-3 Mg/3 Ml Soln) 3 ml INHALATION RT-Q4H PRN PRN Reason: Shortness Of Breath Or Wheezing Last Admin: 01/17/18 14:53 Dose: 3 ml Ceftriaxone Sodium (Rocephin) 1,000 mg IVP Q24HR SUNG Last Admin: 01/17/18 08:27 Dose: 1,000 mg Chlorhexidine Gluconate (Peridex) 15 ml MUCOUS MEM BID [facility] Last Admin: 01/17/18 08:28 Dose: 15 ml Famotidine (Pepcid) 20 mg IV DAILY [facility] Last Admin: 01/17/18 08:27 Dose: 20 mg Heparin Sodium (Porcine) (Heparin) 5,000 unit SQ Q12HR [facility] Last Admin: 01/17/18 08:27 Dose: 5,000 unit Hydromorphone HCl (Dilaudid) 4 mg PO Q2H PRN PRN Reason: Moderate to Severe Pain Propofol 1,000 mg/ IV Solution 100 mls @ 0 mls/hr IV .Q0M [facility]; Titrate PRN Reason: Protocol Last Admin: 01/17/18 17:49 Dose: 68.93 mcg/kg/min, 46.2 mls/hr Norepinephrine Bitartrate (Levophed-0.9% Nacl 16 Mg/250ml Pmx) 16 mg in 250 mls @ 0 mls/hr IV .Q0M [facility]; Titrate PRN Reason: Protocol Last Titration: 01/17/18 16:36 Dose: 9 mcg/min, 8.438 mls/hr Diltiazem HCl 125 mg/ Sodium (Chloride) 125 mls @ 10 mls/hr IV .[id number] SUNG; 10 MG/HR PRN Reason: Protocol Last Admin: 01/17/18 15:23 Dose: Not Given Sodium Bicarbonate 150 ml/ (Dextrose/Water) 1,150 mls @ 75 mls/hr IV .[id number] [facility] Last Admin: 01/17/18 15:55 Dose: 75 mls/hr Sodium Chloride (Saline 0.9%) 1,000 mls @ 20 mls/hr IV .Q24H [facility] Last Admin: 01/17/18 09:54 Dose: 20 mls/hr Insulin Aspart (Novolog) 0 unit SQ Q6HR [facility] PRN Reason: Protocol Last Admin: 01/17/18 18:14 Dose: 4 unit Methylprednisolone Sodium Succinate (Solu-Medrol) 40 mg IV Q6H [facility] Last Admin: 01/17/18 18:15 Dose: 40 mg Metoprolol Tartrate (Lopressor) 25 mg PO DAILY [facility] Metronidazole (Flagyl) 500 mg PO TID [facility] Last Admin: 01/17/18 15:23 Dose: 500 mg Multi-Ingred Cream/Lotion/Oil/Oint (Lubrifresh Pm Ointment) 1 applic BOTH EYES Q4HR PRN PRN Reason: Dry Eye(s) Naloxone HCl (Narcan) 0.2 mg IV Q2M PRN PRN Reason: Opioid Reversal Sodium Chloride (Saline Flush) 20 ml IV Q4HR PRN PRN Reason: PICC Line Sodium Chloride (Saline Flush) 10 ml IV WEEKLY SUNG Sodium Chloride (Saline Flush) 10 ml IV Q4HR PRN PRN Reason: PICC Line Objective - Vital Signs Vital signs: Vital Signs Temp 97.6 F 01/17/18 16:00 Pulse 71 01/17/18 18:00 Resp 36 H 01/17/18 18:00 BP 112/53 01/17/18 04:00 Pulse Ox 91 L 01/17/18 18:00 Intake & Output 01/16/18 01/17/18 01/17/18 18:59 06:59 18:59 Intake Total 2936.652 9560.752 2236.226 Output Total 870 505 315 Balance 039.746 1239.752 1921.226 Weight 110.2 kg 111.7 kg Intake: IV 400 1140 1045 Albumin Human 25% 50 ml 100 In Empty Bag 1 bag @ 100 mls/hr IVPB Q1H [facility]G Rx#: [id number] Dextrose 5% in Water 1, 900 825 000 ml @ 75 mls/hr IV . [id number] SUNG with Sodium Bicarb (1 Meq/ml) 150 ml Rx#:[id number] Sodium Chloride 0.9% 1, 300 240 60 000 ml @ 100 mls/hr IV . Q10H SUNG Rx#:[id number] Sodium Chloride 0.9% 1, 160 000 ml @ 20 mls/hr IV . Q24H SUNG Rx#:[id number] Intake, IV Titration 1046.791 497.752 621.226 Amount Dextrose 5% in Water 1, 600 000 ml @ 75 mls/hr IV . [id number] SUNG with Sodium Bicarb (1 Meq/ml) 150 ml Rx#:[id number] Norepinephrin 16 mg-0.9% 54.891 98.209 90.411 Ns Pmx 16 mg In 250 ml @ Titrate IV .Q0M SUNG Rx#: [id number] Propofol 1,000 mg In 231.9 399.543 530.815 Empty Bag 1 bag @ Titrate IV .Q0M [facility] Rx#: [id number] Sodium Chloride 0.9% 1, 160 000 ml @ 20 mls/hr IV . Q24H SUNG Rx#:[id number] Tube Feeding 212 430 480 Other 90 120 90 Output: Urine 270 305 315 Stool 600 200 Other: Voiding Method Indwelling Catheter Indwelling Catheter Indwelling Catheter ABP, PAP, CO, CI - Last Documented Arterial Blood Pressure 113/43 - Exam GENERAL: Patient is intubated sedated, HEENT: Pupils are round and equally reacting to light. EOMI. No scleral icterus. No conjunctival pallor. Normocephalic, atraumatic. No pharyngeal erythema. No thyromegaly. CARDIOVASCULAR: S1 and S2 present. No murmurs, rubs, or gallops. PULMONARY: Diminished with Bilateral rhonchi scattered throughout ABDOMEN: Soft, nontender, nondistended, normoactive bowel sounds. No palpable organomegaly. MUSCULOSKELETAL: No joint swelling or deformity. EXTREMITIES: No cyanosis, clubbing, or pedal edema. NEUROLOGICAL: Unable to assess SKIN: No rashes. Microbiology 01/10/18 20:15 Sputum Gram Stain - Final 01/10/18 20:15 Sputum Sputum Culture - Final Mariah albicans - Labs CBC & Chem 7: 01/17/18 05:25 01/17/18 15:40 Labs: Abnormal Lab Results - Last 24 Hours (Table) 01/16/18 01/17/18 01/17/18 Range/Units 23:05 00:12 05:25 RBC 3.75 L (3.80-5.40) m/uL Hgb 10.3 L (11.4-16.0) gm/dL MCHC 29.7 L (31.0-37.0) g/dL RDW 16.2 H (11.5-15.5) % Plt Count 102 L (150-450) k/uL ABG pH (7.35-7.45) ABG pCO2 (35-45) mmHg ABG pO2 (83-108) mmHg ABG Total CO2 (19-24) mmol/L ABG O2 Saturation (94-97) % Potassium 5.5 H (3.5-5.1) mmol/L BUN (7-17) mg/dL Creatinine (0.52-1.04) mg/dL Glucose (74-99) mg/dL POC Glucose (mg/dL) 170 H (75-99) mg/dL Calcium (8.4-10.2) mg/dL Phosphorus (2.5-4.5) mg/dL Magnesium (1.6-2.3) mg/dL Total Protein (6.3-8.2) g/dL Albumin (3.5-5.0) g/dL 01/17/18 01/17/18 01/17/18 Range/Units 05:25 06:21 07:56 RBC (3.80-5.40) m/uL Hgb (11.4-16.0) gm/dL MCHC (31.0-37.0) g/dL RDW (11.5-15.5) % Plt Count (150-450) k/uL ABG pH 7.26 L (7.35-7.45) ABG pCO2 54 H (35-45) mmHg ABG pO2 279 H (83-108) mmHg ABG Total CO2 26 H (19-24) mmol/L ABG O2 Saturation 100.0 H (94-97) % Potassium 5.6 H (3.5-5.1) mmol/L BUN 87 H* (7-17) mg/dL Creatinine 1.59 H (0.52-1.04) mg/dL Glucose 192 H (74-99) mg/dL POC Glucose (mg/dL) 179 H (75-99) mg/dL Calcium 7.4 L (8.4-10.2) mg/dL Phosphorus 7.1 H (2.5-4.5) mg/dL Magnesium 2.4 H (1.6-2.3) mg/dL Total Protein 4.4 L (6.3-8.2) g/dL Albumin 2.3 L (3.5-5.0) g/dL 01/17/18 01/17/18 01/17/18 Range/Units 11:48 15:40 18:13 RBC (3.80-5.40) m/uL Hgb (11.4-16.0) gm/dL MCHC (31.0-37.0) g/dL RDW (11.5-15.5) % Plt Count (150-450) k/uL ABG pH (7.35-7.45) ABG pCO2 (35-45) mmHg ABG pO2 (83-108) mmHg ABG Total CO2 (19-24) mmol/L ABG O2 Saturation (94-97) % Potassium 5.6 H (3.5-5.1) mmol/L BUN (7-17) mg/dL Creatinine (0.52-1.04) mg/dL Glucose (74-99) mg/dL POC Glucose (mg/dL) 164 H 185 H (75-99) mg/dL Calcium (8.4-10.2) mg/dL Phosphorus (2.5-4.5) mg/dL Magnesium (1.6-2.3) mg/dL Total Protein (6.3-8.2) g/dL Albumin (3.5-5.0) g/dL Assessment and Plan Assessment: -Septic shock: Secondary to influenza A infection, requiring fluids and pressors -Acute hypercapnic respiratory failure: Secondary to COPD exacerbation which is precipitated by influenza, community-acquired right lower lobe pneumonia, atelectasis and a masslike lesion in the right lower lobe-suspicious for malignancy. Acute Clostridium difficile colitis -Elevated d-dimer without any evidence of PE -Acute renal failure secondary to septic shock continue with IV fluids Atrial fibrillation with rapid and regular rate, presently rate controlled Plan: Continue current medication regime ,monitoring and symptomatic treatment. Maintain sodium bicarb and norepinephrine drips. Production Planner Scheduler discussing with family tracheostomy and PEG tube placement versus terminal weaning. Prognosis guarded given multiple complex medical issues. Further recommendations to follow. The impression and plan of care has been dictated as directed. : I performed a history and examination of this patient, discussed the same with the dictator. I agree with the dictator's note ,documented as a scribe. Any additional findings or plans will be noted.
[2018-01-17 23:46] LABS: Glucose,Whole Blood 188 mg/dL (75-99)
[2018-01-18] MEDS: PROPOFOL 1,000 MG in EMPTY BAG 1 BAG IV SCH ×10 (00:54→21:18)
[2018-01-18] MEDS ORDERED: INSULIN REGULAR 100 UNIT/ML VIAL IV ONE ×4 (00:58→17:56)
[2018-01-18] MEDS ORDERED: DEXTROSE 50%-WATER 50 ML SYRINGE IVP STA ×4 (00:59→17:56)
[2018-01-18] MEDS ORDERED: SODIUM CHLORIDE 0.9% 1,000 ML IV ONE (01:29)
[2018-01-18 01:43] LABS: Glucose,Whole Blood 184 mg/dL (75-99)
[2018-01-18] MEDS: DILTIAZEM 125 MG in SODIUM CHLORIDE 0.9% 100 ML IV SCH ×2 (02:40→18:04)
[2018-01-18 04:50] LABS: Calcium 7.6 mg/dL (8.4-10.2); Magnesium 2.5 mg/dL (1.6-2.3); Potassium 5.7 mmol/L (3.5-5.1)
[2018-01-18 04:50] LABS: ABG Base Excess -0.5 mmol/L; ABG HCO3 27 mmol/L (21-25); ABG Oxygen Saturation 89.5 % (94-97); ABG PCO2 65 mmHg (35-45); ABG PH 7.23 (7.35-7.45); ABG PO2 65 mmHg (83-108); ABG TCO2 29 mmol/L (19-24)
[2018-01-18 04:58] LABS: Anisocytosis Slight; Hypochromasia Marked; MCH 27.6 pg (25.0-35.0); MCHC 30.3 g/dL (31.0-37.0); Mean Platelet Volume 9.5; Platelet Count 114 k/uL (150-450); RBC 4.73 m/uL (3.80-5.40); RDW 16.4 % (11.5-15.5)
[2018-01-18 05:20] LABS: Glucose,Whole Blood 158 mg/dL (75-99)
[2018-01-18 05:21] LABS: Band Neutrophils % 22 %; Metamyelocytes % 4 %; Neutrophils % (M) 62 %; Nucleated Red Blood Cells 2 /100 WBC (0-0); Total Cells Counted 200
[2018-01-18 05:22] LABS: Lymphocytes # (M) 0.94 k/uL (1.0-4.8); Metamyelocytes # (M) 0.47 k/uL (0); Monocytes # (M) 0.59 k/uL (0-1.0); WBC 11.7 k/uL (3.8-10.6)
[2018-01-18] MEDS: INSULIN ASPART 100 UNIT/ML 1 ML 10 ML VIAL SQ SCH ×3 (05:27→18:10)
[2018-01-18 05:29] LABS: Phosphorus 8.9 mg/dL (2.5-4.5)
[2018-01-18] MEDS: methylPREDNISolone SOD SUCCI 40 MG/ML 1 ML VIAL IV SCH ×3 (05:29→18:10)
[2018-01-18] MEDS ORDERED: ALBUMIN HUMAN 25% 50 ML in EMPTY BAG 1 BAG IVPB ONE (05:45)
[2018-01-18] MEDS ORDERED: FUROSEMIDE 10 MG/ML 10 ML VIAL IV ONE (06:15)
[2018-01-18] MEDS: IPRATROPIUM-ALBUTEROL 3 ML NEB INHALATION PRN ×3 (07:56→15:03)
[2018-01-18] MEDS: cefTRIAXone IN SWFI 1,000 MG/10 ML SYRINGE IVP SCH (08:31)
[2018-01-18] MEDS: CHLORHEXIDINE GLUCONATE 15 ML CUP MUCOUS MEM SCH ×2 (08:31→20:09)
[2018-01-18] MEDS: HEPARIN SODIUM,PORCINE 5,000 UNIT/ML 1 ML VIAL SQ SCH ×2 (08:32→20:09)
[2018-01-18] MEDS: FAMOTIDINE 20 MG/2 ML VIAL IV SCH (08:32)
--- NOTE | 2018-01-18 08:42 | XR ---
EXAMINATION TYPE: XR chest 1V portable DATE OF EXAM: 01/18/2018 COMPARISON: 01/17/2018 HISTORY: Tube placement TECHNIQUE: Single frontal view of the chest is obtained. FINDINGS: ET and NG tube stable. Central line stable. Large right-sided lung mass stable. Bilateral infiltrate and pleural effusion noted. Interstitial pattern seen. No definite sizable pneumothorax. IMPRESSION: 1. Stable large right pulmonary mass. 2. Bilateral infiltrate and pleural effusion. Underlying venous congestion not excluded.
[2018-01-18] MEDS: metroNIDAZOLE 500 MG TAB PO SCH ×3 (08:45→20:09)
--- NOTE | 2018-01-18 08:47 | P.PN ---
Subjective Progress Note Date: 01/18/18 Principal diagnosis: Respiratory failure influenza A pneumonia COPD Progress note dated 01/17/2018 72-year-old female who apparently was admitted on January 10. She apparently was intubated on that same day. The patient was admitted with a diagnosis of influenza A pneumonia COPD and respiratory failure. The patient's currently on the mechanical ventilator has made no progress. Chest x-ray shows a right lung mass and also by basilar infiltrates or effusions and/or pneumonia. He is currently on the assist control mode rate of 30 tidal volume 500 FiO2 100% PEEP of 8. Arterial blood gases show a PaO2 of 279 a PaCO2 of 54 and a pH of 7.26. The patient apparently is still a full code and has not had any weaning. The patient's on a dextrose IV with 3 ampules of sodium bicarbonate at 75 mL an hour propofol at 65 mics per kilogram per minute and norepinephrine at 6 mics per minute and tube feedings at 30 with a goal of 30. CODE STATUS should be addressed. It was mentioned by my partner yesterday on his rounds. The sputum just shows Mariah. Chest x-ray looks bad. Overall prognosis is poor. Vent changes were made in the assist control mode was increased from 30to 36 the tidal volume was decreased from 500 to 400 and the FiO2 was dropped from 100 to 50%. Labs x-rays a medications are all reviewed. Progress note dated 01/18/2018 72-year-old female admitted on January 10. The patient apparently was admitted and intubated on the same day. Her admission diagnosis was that of influenza A, pneumonia, COPD exacerbation and respiratory failure. The patient is currently on the mechanical ventilator has made no progress. The nurse last night was able to talk to the family and get the CODE STATUS changed to DO NOT RESUSCITATE. Chest x-ray shows a right lung mass as well as bibasilar infiltrates and/or effusions and/or pneumonia. Currently, she is on the assist control mode with a rate of 36 a tidal volume of 400 FiO2 70% and PEEP of 10. Despite that, arterial blood gases show a PaO2 of 65 a PaCO2 of 65 and a pH of 7.22. The patient is receiving propofol at 50 mics per kilogram per minute a D5W IV with 3 A of sodium bicarbonate at 75 mL an hour norepinephrine at 14 mcg/ m saline IV at 20 mL an hour and tube feeds at 30 with a goal of 30 mL an hour. The patient is now a DO NOT RESUSCITATE and has made no progress over the last 24 hours. In fact, you could say that she's actually gotten worse. Family members are apparently driving in today and they may opt to make the patient a comfort measures only. Objective - Vital Signs Vital signs: Vital Signs Temp 98.1 F 01/18/18 08:00 Pulse 79 01/18/18 08:13 Resp 36 H 01/18/18 08:00 BP 132/49 01/18/18 08:00 Pulse Ox 89 L 01/18/18 08:00 Intake & Output 01/17/18 01/18/18 01/18/18 18:59 06:59 18:59 Intake Total 2361.226 2883.700 Output Total 345 238 Balance 2016.226 2645.700 Weight 119.9 kg Intake: IV 1140 2215 Dextrose 5% in Water 1, 900 975 000 ml @ 75 mls/hr IV . [id number] SUNG with Sodium Bicarb (1 Meq/ml) 150 ml Rx#:[id number] Sodium Chloride 0.9% 1, 60 000 ml @ 100 mls/hr IV . Q10H SUNG Rx#:[id number] Sodium Chloride 0.9% 1, 180 1240 000 ml @ 20 mls/hr IV . Q24H SUNG Rx#:[id number] Intake, IV Titration 621.226 518.700 Amount Norepinephrin 16 mg-0.9% 90.411 117.237 Ns Pmx 16 mg In 250 ml @ Titrate IV .Q0M SUNG Rx#: [id number] Propofol 1,000 mg In 530.815 401.463 Empty Bag 1 bag @ Titrate IV .Q0M SUNG Rx#: [id number] Tube Feeding 510 150 Other 90 Output: Urine 345 238 Other: Voiding Method Indwelling Catheter Indwelling Catheter ABP, PAP, CO, CI - Last Documented Arterial Blood Pressure 112/39 - Exam No acute distress, Patient's sedated. Oral endotracheal tube and NG tube noted.. HEENT examination is grossly unremarkable. Mucous membranes are moist. No oral lesions. Neck supple. Full range of motion. No adenopathy thyromegaly or neck vein distention. Cardiovascular examination reveals regular rhythm rate. S1-S2 normal. No S3 or S4. No discernible murmur noted. Lungs reveal diffuse bilateral rhonchi. Breath sounds are diminished. No wheezes. No crackles.. Abdomen soft bowel sounds are heard. No masses or tenderness. Extremities are intact. No cyanosis clubbing. Mild lower extremity edema noted. Skin is without rash or lesion. Neurologic examination cannot be assessed as patient is sedated - Labs CBC & Chem 7: 01/18/18 04:23 01/18/18 04:23 Labs: Abnormal Lab Results - Last 24 Hours (Table) 01/17/18 01/17/18 01/17/18 Range/Units 11:48 15:40 18:13 WBC (3.8-10.6) k/uL MCHC (31.0-37.0) g/dL RDW (11.5-15.5) % Plt Count (150-450) k/uL Neutrophils # (Manual) (1.3-7.7) k/uL Lymphocytes # (Manual) (1.0-4.8) k/uL Metamyelocytes # (Man) (0) k/uL Nucleated RBCs (0-0) /100 WBC ABG pH (7.35-7.45) ABG pCO2 (35-45) mmHg ABG pO2 (83-108) mmHg ABG HCO3 (21-25) mmol/L ABG Total CO2 (19-24) mmol/L ABG O2 Saturation (94-97) % Potassium 5.6 H (3.5-5.1) mmol/L BUN (7-17) mg/dL Creatinine (0.52-1.04) mg/dL Glucose (74-99) mg/dL POC Glucose (mg/dL) 164 H 185 H (75-99) mg/dL Calcium (8.4-10.2) mg/dL Phosphorus (2.5-4.5) mg/dL Magnesium (1.6-2.3) mg/dL 01/17/18 01/18/18 01/18/18 Range/Units 23:44 00:01 01:41 WBC (3.8-10.6) k/uL MCHC (31.0-37.0) g/dL RDW (11.5-15.5) % Plt Count (150-450) k/uL Neutrophils # (Manual) (1.3-7.7) k/uL Lymphocytes # (Manual) (1.0-4.8) k/uL Metamyelocytes # (Man) (0) k/uL Nucleated RBCs (0-0) /100 WBC ABG pH (7.35-7.45) ABG pCO2 (35-45) mmHg ABG pO2 (83-108) mmHg ABG HCO3 (21-25) mmol/L ABG Total CO2 (19-24) mmol/L ABG O2 Saturation (94-97) % Potassium 5.7 H (3.5-5.1) mmol/L BUN (7-17) mg/dL Creatinine (0.52-1.04) mg/dL Glucose (74-99) mg/dL POC Glucose (mg/dL) 188 H 184 H (75-99) mg/dL Calcium (8.4-10.2) mg/dL Phosphorus (2.5-4.5) mg/dL Magnesium (1.6-2.3) mg/dL 01/18/18 01/18/18 01/18/18 Range/Units 04:23 04:23 04:45 WBC 11.7 H (3.8-10.6) k/uL MCHC 30.3 L (31.0-37.0) g/dL RDW 16.4 H (11.5-15.5) % Plt Count 114 L (150-450) k/uL Neutrophils # (Manual) 9.80 H (1.3-7.7) k/uL Lymphocytes # (Manual) 0.94 L (1.0-4.8) k/uL Metamyelocytes # (Man) 0.47 H (0) k/uL Nucleated RBCs 2 H (0-0) /100 WBC ABG pH 7.23 L (7.35-7.45) ABG pCO2 65 H (35-45) mmHg ABG pO2 65 L (83-108) mmHg ABG HCO3 27 H (21-25) mmol/L ABG Total CO2 29 H (19-24) mmol/L ABG O2 Saturation 89.5 L (94-97) % Potassium 5.7 H (3.5-5.1) mmol/L BUN 99 H* (7-17) mg/dL Creatinine 2.10 H (0.52-1.04) mg/dL Glucose 170 H (74-99) mg/dL POC Glucose (mg/dL) (75-99) mg/dL Calcium 7.6 L (8.4-10.2) mg/dL Phosphorus 8.9 H* (2.5-4.5) mg/dL Magnesium 2.5 H (1.6-2.3) mg/dL 01/18/18 Range/Units 05:17 WBC (3.8-10.6) k/uL MCHC (31.0-37.0) g/dL RDW (11.5-15.5) % Plt Count (150-450) k/uL Neutrophils # (Manual) (1.3-7.7) k/uL Lymphocytes # (Manual) (1.0-4.8) k/uL Metamyelocytes # (Man) (0) k/uL Nucleated RBCs (0-0) /100 WBC ABG pH (7.35-7.45) ABG pCO2 (35-45) mmHg ABG pO2 (83-108) mmHg ABG HCO3 (21-25) mmol/L ABG Total CO2 (19-24) mmol/L ABG O2 Saturation (94-97) % Potassium (3.5-5.1) mmol/L BUN (7-17) mg/dL Creatinine (0.52-1.04) mg/dL Glucose (74-99) mg/dL POC Glucose (mg/dL) 158 H (75-99) mg/dL Calcium (8.4-10.2) mg/dL Phosphorus (2.5-4.5) mg/dL Magnesium (1.6-2.3) mg/dL Assessment and Plan Assessment: Assessment Acute hypoxemic and hypercapnic respiratory failure, secondary to COPD exacerbation, influenza A, bilateral lower lobe pneumonia with sepsis. Right lung mass, strongly suspicious for bronchogenic carcinoma with possible metastasis Left breast mass, likely malignant Acute sepsis with septic shock, requiring fluids and pressors. Community-acquired right lower lobe pneumonia COPD exacerbation History of congestive heart failure Acute C. difficile colitis Failure to wean from mechanical ventilation Plan: Plan dated 01/17/2018 The patient's overall prognosis remains very poor. He remains on dextrose IV with sodium bicarbonate, propofol for sedation and norepinephrine. She has also receiving tube feeds. Some ventilator changes were made today. Will need to have a discussion with the family. She's been on the ventilator since the , roughly 7 days. We should move towards tracheostomy and PEG tube placement if the family wants to continue life support. We'll continue to follow closely. No additional recommendations are made. Again prognosis is very poor. Critical care time 36 minutes Plan dated 01/18/2018 The patient's overall prognosis remains very poor. She remains on propofol at 50 mics per kilogram per minute, her dextrose and sodium bicarbonate IV at 75 mL an hour norepinephrine which is increased from 6 to 14 mcg/m and her tube feeds. Arterial blood gases are very poor with a PaO2 of 65 a PaCO2 of 65 and a pH of 7.22. The patient is now a DO NOT RESUSCITATE. Again prognosis is very poor. Family apparently does not want a tracheostomy and PEG tube placement. Critical care time 31 minutes Time with Patient: Greater than 30
[2018-01-18] MEDS ORDERED: METOPROLOL TARTRATE 25 MG TAB PO SCH (09:00)
[2018-01-18] MEDS: NOREPINEPHRIN 16 MG-0.9%NS PMX 16 MG/250 ML ML IV SCH ×2 (09:10→20:10)
[2018-01-18] MEDS: DEXTROSE 5% IN WATER 1,000 ML with SODIUM BICARB (1 MEQ/ML) 150 ML IV SCH (09:11)
[2018-01-18] MEDS: SODIUM CHLORIDE 0.9% 1,000 ML IV SCH ×4 (09:24→18:03)
[2018-01-18 10:06] VITALS: BMI 42.6
--- NOTE | 2018-01-18 10:41 | P.PN ---
Subjective Patient is seen in follow-up for acute kidney injury. Her creatinine is up to 2.1 today. She remains intubated and sedated. Her urine output has been about 10 mL an hour. She has been getting intermittent doses of IV Lasix. She is currently on 16 mics of levofed. Lopressor was held yesterday due to low blood pressures but she went into A. fib with RVR. She did receive Lopressor this morning. She still maintained on isotonic sodium bicarbonate drip running at 75 mL an hour. She is also on tube feeds. Vital signs are stable. General: The patient appeared well nourished and normally developed. HEENT: Head exam is unremarkable. Neck is without jugular venous distension. LUNGS: Lungs are clear to auscultation and percussion. Breath sounds decreased. HEART: Rate and Rhythm are regular. First and second heart sounds normal. No murmurs, rubs or gallops. ABDOMEN: Abdominal exam reveals normal bowel sounds. Non-tender and non- distended. No evidence of peritonitis. EXTREMITITES: 2+ edema. Objective - Vital Signs Vital signs: Vital Signs Temp 98.1 F 01/18/18 08:00 Pulse 77 01/18/18 10:00 Resp 36 H 01/18/18 10:00 BP 120/55 01/18/18 10:00 Pulse Ox 89 L 01/18/18 10:00 Intake & Output 01/17/18 01/18/18 01/18/18 18:59 06:59 18:59 Intake Total 2361.226 2883.700 587.965 Output Total 345 238 32 Balance 2016.226 2645.700 555.965 Weight 119.9 kg 119.9 kg Intake: IV 1140 2215 285 Dextrose 5% in Water 1, 900 975 225 000 ml @ 75 mls/hr IV . [id number] SUNG with Sodium Bicarb (1 Meq/ml) 150 ml Rx#:[id number] Sodium Chloride 0.9% 1, 60 000 ml @ 100 mls/hr IV . Q10H SUNG Rx#:[id number] Sodium Chloride 0.9% 1, 180 1240 60 000 ml @ 20 mls/hr IV . Q24H SUNG Rx#:[id number] Intake, IV Titration 621.226 518.700 122.965 Amount Norepinephrin 16 mg-0.9% 90.411 117.237 35.352 Ns Pmx 16 mg In 250 ml @ Titrate IV .Q0M SUNG Rx#: [id number] Propofol 1,000 mg In 530.815 401.463 87.613 Empty Bag 1 bag @ Titrate IV .Q0M SUNG Rx#: [id number] Tube Feeding 510 150 150 Other 90 30 Output: Urine 345 238 32 Other: Voiding Method Indwelling Catheter Indwelling Catheter Indwelling Catheter ABP, PAP, CO, CI - Last Documented Arterial Blood Pressure 107/45 - Labs CBC & Chem 7: 01/18/18 04:23 01/18/18 04:23 Labs: Abnormal Lab Results - Last 24 Hours (Table) 01/17/18 01/17/18 01/17/18 Range/Units 11:48 15:40 18:13 WBC (3.8-10.6) k/uL MCHC (31.0-37.0) g/dL RDW (11.5-15.5) % Plt Count (150-450) k/uL Neutrophils # (Manual) (1.3-7.7) k/uL Lymphocytes # (Manual) (1.0-4.8) k/uL Metamyelocytes # (Man) (0) k/uL Nucleated RBCs (0-0) /100 WBC ABG pH (7.35-7.45) ABG pCO2 (35-45) mmHg ABG pO2 (83-108) mmHg ABG HCO3 (21-25) mmol/L ABG Total CO2 (19-24) mmol/L ABG O2 Saturation (94-97) % Potassium 5.6 H (3.5-5.1) mmol/L BUN (7-17) mg/dL Creatinine (0.52-1.04) mg/dL Glucose (74-99) mg/dL POC Glucose (mg/dL) 164 H 185 H (75-99) mg/dL Calcium (8.4-10.2) mg/dL Phosphorus (2.5-4.5) mg/dL Magnesium (1.6-2.3) mg/dL 01/17/18 01/18/18 01/18/18 Range/Units 23:44 00:01 01:41 WBC (3.8-10.6) k/uL MCHC (31.0-37.0) g/dL RDW (11.5-15.5) % Plt Count (150-450) k/uL Neutrophils # (Manual) (1.3-7.7) k/uL Lymphocytes # (Manual) (1.0-4.8) k/uL Metamyelocytes # (Man) (0) k/uL Nucleated RBCs (0-0) /100 WBC ABG pH (7.35-7.45) ABG pCO2 (35-45) mmHg ABG pO2 (83-108) mmHg ABG HCO3 (21-25) mmol/L ABG Total CO2 (19-24) mmol/L ABG O2 Saturation (94-97) % Potassium 5.7 H (3.5-5.1) mmol/L BUN (7-17) mg/dL Creatinine (0.52-1.04) mg/dL Glucose (74-99) mg/dL POC Glucose (mg/dL) 188 H 184 H (75-99) mg/dL Calcium (8.4-10.2) mg/dL Phosphorus (2.5-4.5) mg/dL Magnesium (1.6-2.3) mg/dL 01/18/18 01/18/18 01/18/18 Range/Units 04:23 04:23 04:45 WBC 11.7 H (3.8-10.6) k/uL MCHC 30.3 L (31.0-37.0) g/dL RDW 16.4 H (11.5-15.5) % Plt Count 114 L (150-450) k/uL Neutrophils # (Manual) 9.80 H (1.3-7.7) k/uL Lymphocytes # (Manual) 0.94 L (1.0-4.8) k/uL Metamyelocytes # (Man) 0.47 H (0) k/uL Nucleated RBCs 2 H (0-0) /100 WBC ABG pH 7.23 L (7.35-7.45) ABG pCO2 65 H (35-45) mmHg ABG pO2 65 L (83-108) mmHg ABG HCO3 27 H (21-25) mmol/L ABG Total CO2 29 H (19-24) mmol/L ABG O2 Saturation 89.5 L (94-97) % Potassium 5.7 H (3.5-5.1) mmol/L BUN 99 H* (7-17) mg/dL Creatinine 2.10 H (0.52-1.04) mg/dL Glucose 170 H (74-99) mg/dL POC Glucose (mg/dL) (75-99) mg/dL Calcium 7.6 L (8.4-10.2) mg/dL Phosphorus 8.9 H* (2.5-4.5) mg/dL Magnesium 2.5 H (1.6-2.3) mg/dL 01/18/18 Range/Units 05:17 WBC (3.8-10.6) k/uL MCHC (31.0-37.0) g/dL RDW (11.5-15.5) % Plt Count (150-450) k/uL Neutrophils # (Manual) (1.3-7.7) k/uL Lymphocytes # (Manual) (1.0-4.8) k/uL Metamyelocytes # (Man) (0) k/uL Nucleated RBCs (0-0) /100 WBC ABG pH (7.35-7.45) ABG pCO2 (35-45) mmHg ABG pO2 (83-108) mmHg ABG HCO3 (21-25) mmol/L ABG Total CO2 (19-24) mmol/L ABG O2 Saturation (94-97) % Potassium (3.5-5.1) mmol/L BUN (7-17) mg/dL Creatinine (0.52-1.04) mg/dL Glucose (74-99) mg/dL POC Glucose (mg/dL) 158 H (75-99) mg/dL Calcium (8.4-10.2) mg/dL Phosphorus (2.5-4.5) mg/dL Magnesium (1.6-2.3) mg/dL Assessment and Plan Plan: Assessment: #1. Oliguric acute kidney injury secondary to ATN secondary to septic shock, hypotension and hemodynamic instability. Baseline creatinine is 1. It is 2.1 today. Urinalysis is quite benign. #2. Septic shock secondary to influenza A virus and C. diff colitis. Currently on 16 mics of levofed. #3. Hyperkalemia secondary to acute kidney injury and oliguria. #4. Influenza A infection. #5. C. diff colitis. #6. Metabolic acidosis secondary to acute kidney injury. Improved. #7. Mixed hypoxic and hypercapnic respiratory failure. #8. Lung cancer with metastasis. Also has a lump in her breast. #9. Hyperphosphatemia secondary to acute kidney injury. Plan: Discontinue sodium bicarbonate drip. Start normal saline at 75 mL an hour. She did receive IV insulin with D50 this morning. Potassium level to be checked this evening. Wean levofed. Avoid nephrotoxic agents and hypotensive episodes. Continue to monitor renal function and urine output closely. Overall prognosis poor. 25 g of albumin today given as well. May repeat another dose of Lasix Lasix 80 mg IV once if urine output remains below 30 cc an hour for 3 hours. Add Renvela 800 mg 3 times daily with tube feeds. Due to worsening renal function and oliguria, she needs to be started on replacement therapy but her overall condition at this time including her underlying malignancy don't make her a candidate for dialysis in the long run. Awaiting family's decision.
[2018-01-18] MEDS: SEVELAMER 800 MG TAB PO SCH ×2 (11:56→18:04)
[2018-01-18 12:02] LABS: Glucose,Whole Blood 145 mg/dL (75-99)
[2018-01-18 16:02] VITALS: TEMP 97.8
--- NOTE | 2018-01-18 17:04 | P.PN ---
Subjective Progress Note Date: 01/18/18 Progress note being dictated for Dr. Arellano. Interval history:Patient was admitted secondary to influenza tracheobronchitis and COPD exacerbation patient admits intubated patient has poor residual lung function. Normal uses 2.5 L of onset at home. Patient remains on the ventilator without any improvement in her respiratory status. Patient is still on low dose of norepinephrine. On high-dose of the sedation. 01/12/2018 No overnight events had clinical condition remains the same remains on 1 mcg of levo fed remains on high-dose of propofol 01/13/2018 Patient went into atrial fibrillation was given a dose of Cardizem after which heart rate came down and patient is presently on metoprolol patient is also on norepinephrine at a very low-dose patient is found to have C. diff, levofloxacin will be discontinued patient was started on Rocephin although patient is ALLERGIC to penicillin as she is intubated we'll try Rocephin from tomorrow. Will discuss with pulmonology to see if he followed antibodies can be discontinued except for metronidazole which is being used for C. diff colitis. 01/14/2018 Patient can use to have diarrhea and feet has a fecal management system no significant improvement in respiratory status patient is hyperkalemic and patient is already having diarrhea because of which I'm not giving her Late will repeat potassium. Will discuss with the family later today. Patient is off pressor support at this time. 01/17/18 chest x-ray reporting similar findings , ABGs noted, vent changes made May with PEEP increased up to 10. Staff reports patient did not follow commands during the last sedation holiday. Minimal thick white sputum suctioned from endotracheal tube. Beta moriah held yesterday secondary to hypotension and patient developed atrial fibrillation with RVR during the night. Maintained on sodium bicarb and norepinephrine drips. Renal Function worsening. Unable to obtain review of systems given patient intubated Active Medications Acetaminophen (Tylenol Suppository) 650 mg RECTAL Q4HR PRN PRN Reason: Fever And/ Or Mild Pain Albuterol/Ipratropium (Duoneb 0.5 Mg-3 Mg/3 Ml Soln) 3 ml INHALATION RT-Q4H PRN PRN Reason: Shortness Of Breath Or Wheezing Last Admin: 01/17/18 14:53 Dose: 3 ml Ceftriaxone Sodium (Rocephin) 1,000 mg IVP Q24HR [facility]G Last Admin: 01/17/18 08:27 Dose: 1,000 mg Chlorhexidine Gluconate (Peridex) 15 ml MUCOUS MEM BID [facility] Last Admin: 01/17/18 08:28 Dose: 15 ml Famotidine (Pepcid) 20 mg IV DAILY [facility] Last Admin: 01/17/18 08:27 Dose: 20 mg Heparin Sodium (Porcine) (Heparin) 5,000 unit SQ Q12HR [facility] Last Admin: 01/17/18 08:27 Dose: 5,000 unit Hydromorphone HCl (Dilaudid) 4 mg PO Q2H PRN PRN Reason: Moderate to Severe Pain Propofol 1,000 mg/ IV Solution 100 mls @ 0 mls/hr IV .Q0M [facility]; Titrate PRN Reason: Protocol Last Admin: 01/17/18 17:49 Dose: 68.93 mcg/kg/min, 46.2 mls/hr Norepinephrine Bitartrate (Levophed-0.9% Nacl 16 Mg/250ml Pmx) 16 mg in 250 mls @ 0 mls/hr IV .Q0M [facility]; Titrate PRN Reason: Protocol Last Titration: 01/17/18 16:36 Dose: 9 mcg/min, 8.438 mls/hr Diltiazem HCl 125 mg/ Sodium (Chloride) 125 mls @ 10 mls/hr IV .[id number] SUNG; 10 MG/HR PRN Reason: Protocol Last Admin: 01/17/18 15:23 Dose: Not Given Sodium Bicarbonate 150 ml/ (Dextrose/Water) 1,150 mls @ 75 mls/hr IV .[id number] [facility] Last Admin: 01/17/18 15:55 Dose: 75 mls/hr Sodium Chloride (Saline 0.9%) 1,000 mls @ 20 mls/hr IV .Q24H [facility] Last Admin: 01/17/18 09:54 Dose: 20 mls/hr Insulin Aspart (Novolog) 0 unit SQ Q6HR [facility] PRN Reason: Protocol Last Admin: 01/17/18 18:14 Dose: 4 unit Methylprednisolone Sodium Succinate (Solu-Medrol) 40 mg IV Q6H [facility] Last Admin: 01/17/18 18:15 Dose: 40 mg Metoprolol Tartrate (Lopressor) 25 mg PO DAILY [facility] Metronidazole (Flagyl) 500 mg PO TID SUNG Last Admin: 01/17/18 15:23 Dose: 500 mg Multi-Ingred Cream/Lotion/Oil/Oint (Lubrifresh Pm Ointment) 1 applic BOTH EYES Q4HR PRN PRN Reason: Dry Eye(s) Naloxone HCl (Narcan) 0.2 mg IV Q2M PRN PRN Reason: Opioid Reversal Sodium Chloride (Saline Flush) 20 ml IV Q4HR PRN PRN Reason: PICC Line Sodium Chloride (Saline Flush) 10 ml IV WEEKLY SUNG Sodium Chloride (Saline Flush) 10 ml IV Q4HR PRN PRN Reason: PICC Line 01/18/18 . Remains vent dependent FiO2 70% +10 of PEEP, norepinephrine at 20 mcgs., Significant third spacing edema. Receiving 25% albumin. Bicarb drip discontinued. Renal function worsening.potassium remains at 5.7, received both IV regular insulin with dextrose 50%. Minimal urine output of 5-10 MLS per hour post Lasix IV push. Third spacing present in extremities, abdomen. ABGs noted. Per staff family does not want a tracheostomy and PEG tube. Review systems unable to obtain as patient sedated and on mechanical ventilation. Active Medications Generic Name Dose Route Start Last Admin Trade Name Freq PRN Reason Stop Dose Admin Acetaminophen 650 mg 01/10/18 05:31 Tylenol Suppository RECTAL Q4HR PRN Fever And/ Or Mild Pain Albuterol/Ipratropium 3 ml 01/10/18 05:31 01/18/18 15:03 Duoneb 0.5 Mg-3 Mg/3 Ml Soln INHALATION 3 ml RT-Q4H PRN Administration Shortness Of Breath Or Wheezing Ceftriaxone Sodium 1,000 mg 01/14/18 09:00 01/18/18 08:31 Rocephin IVP 1,000 mg Q24HR [facility]G Administration Chlorhexidine Gluconate 15 ml 01/10/18 21:00 01/18/18 08:31 Peridex MUCOUS MEM 15 ml BID [facility] Administration Famotidine 20 mg 01/11/18 09:00 01/18/18 08:32 Pepcid IV 20 mg DAILY [facility] Administration Heparin Sodium (Porcine) 5,000 unit 01/10/18 09:00 01/18/18 08:32 Heparin SQ 5,000 unit Q12HR [facility] Administration Hydromorphone HCl 4 mg 01/16/18 11:19 Dilaudid PO Q2H PRN Moderate to Severe Pain Propofol 1,000 mg/ IV Solution 100 mls @ 0 mls/hr 01/10/18 11:00 01/18/18 16: 30 IV 59.49 mcg/kg/min .Q0M [facility] 42.8 mls/hr Protocol Administration Titrate Norepinephrine Bitartrate 16 mg in 250 mls @ 0 mls/hr 01/11/18 12:30 11:36 Levophed-0.9% Nacl 16 Mg/250ml Pmx IV 20 mcg/min .Q0M [facility] 18.75 mls/hr Protocol Titration Titrate Diltiazem HCl 125 mg/ Sodium 125 mls @ 10 mls/hr 01/12/18 23:30 01/18/18 02: 40 Chloride IV Not Given .[id number] [facility] Protocol 10 MG/HR Sodium Chloride 1,000 mls @ 75 mls/hr 01/16/18 09:15 01/18/18 10:39 Saline 0.9% IV Not Given .[id number] [facility] Insulin Aspart 0 unit 01/10/18 12:00 01/18/18 12:02 Novolog SQ 2 unit Q6HR [facility] Administration Protocol Methylprednisolone Sodium Succinate 40 mg 01/17/18 12:00 01/18/18 11:56 Solu-Medrol IV 40 mg Q6H [facility] Administration Metoprolol Tartrate 25 mg 01/18/18 09:00 01/18/18 08:32 Lopressor PO 25 mg DAILY [facility] Administration Metronidazole 500 mg 01/12/18 10:00 01/18/18 08:45 Flagyl PO 500 mg TID SUNG Administration Multi-Ingred Cream/Lotion/Oil/Oint 1 applic 01/10/18 05:31 Lubrifresh Pm Ointment BOTH EYES Q4HR PRN Dry Eye(s) Naloxone HCl 0.2 mg 01/10/18 05:31 Narcan IV Q2M PRN Opioid Reversal Sevelamer Carbonate 800 mg 01/18/18 12:30 01/18/18 11:56 Renvela PO Not Given TID-W/MEALS [facility] Sodium Chloride 20 ml 01/11/18 13:32 Saline Flush IV Q4HR PRN PICC Line Sodium Chloride 10 ml 01/18/18 09:00 01/18/18 08:45 Saline Flush IV 10 ml WEEKLY [facility] Administration Sodium Chloride 10 ml 01/11/18 13:32 Saline Flush IV Q4HR PRN PICC Line Objective - Vital Signs Vital signs: Vital Signs Temp 97.8 F 01/18/18 16:00 Pulse 76 01/18/18 16:00 Resp 36 H 01/18/18 16:00 BP 106/47 01/18/18 12:00 Pulse Ox 87 L 01/18/18 16:00 Intake & Output 01/17/18 01/18/18 01/18/18 18:59 06:59 18:59 Intake Total 2361.226 2883.700 1619.352 Output Total 345 238 145 Balance 2016.226 2645.700 1474.352 Weight 119.9 kg 119.9 kg Intake: IV 1140 2215 735 Dextrose 5% in Water 1, 900 975 225 000 ml @ 75 mls/hr IV . [id number] [facility] with Sodium Bicarb (1 Meq/ml) 150 ml Rx#:[id number] Sodium Chloride 0.9% 1, 60 000 ml @ 100 mls/hr IV . Q10H [facility] Rx#:[id number] Sodium Chloride 0.9% 1, 180 1240 510 000 ml @ 75 mls/hr IV . [id number] [facility] Rx#:[id number] Intake, IV Titration 621.226 518.700 444.352 Amount Norepinephrin 16 mg-0.9% 90.411 117.237 71.852 Ns Pmx 16 mg In 250 ml @ Titrate IV .Q0M [facility] Rx#: [id number] Propofol 1,000 mg In 530.815 401.463 372.500 Empty Bag 1 bag @ Titrate IV .Q0M [facility] Rx#: [id number] Tube Feeding 510 150 350 Other 90 90 Output: Urine 345 238 145 Other: Voiding Method Indwelling Catheter Indwelling Catheter Indwelling Catheter ABP, PAP, CO, CI - Last Documented Arterial Blood Pressure 129/51 - Exam GENERAL: Patient is intubated sedated, HEENT: Pupils are round and equally reacting to light. EOMI. No scleral icterus. No conjunctival pallor. Normocephalic, atraumatic. No pharyngeal erythema. No thyromegaly. CARDIOVASCULAR: S1 and S2 present. No murmurs, rubs, or gallops. PULMONARY: Diminished with Bilateral rhonchi scattered throughout ABDOMEN: Edematous, nontender, nondistended, normoactive bowel sounds. No palpable organomegaly.FMS present with brown liquidy stool. EXTREMITIES: Third spacing, all extremities, abdomen NEUROLOGICAL: Unable to assess SKIN: No rashes. Microbiology 01/10/18 20:15 Sputum Gram Stain - Final 01/10/18 20:15 Sputum Sputum Culture - Final Mariah albicans - Labs CBC & Chem 7: 01/18/18 04:23 01/18/18 04:23 Labs: Abnormal Lab Results - Last 24 Hours (Table) 01/17/18 01/17/18 01/18/18 Range/Units 18:13 23:44 00:01 WBC (3.8-10.6) k/uL MCHC (31.0-37.0) g/dL RDW (11.5-15.5) % Plt Count (150-450) k/uL Neutrophils # (Manual) (1.3-7.7) k/uL Lymphocytes # (Manual) (1.0-4.8) k/uL Metamyelocytes # (Man) (0) k/uL Nucleated RBCs (0-0) /100 WBC ABG pH (7.35-7.45) ABG pCO2 (35-45) mmHg ABG pO2 (83-108) mmHg ABG HCO3 (21-25) mmol/L ABG Total CO2 (19-24) mmol/L ABG O2 Saturation (94-97) % Potassium 5.7 H (3.5-5.1) mmol/L BUN (7-17) mg/dL Creatinine (0.52-1.04) mg/dL Glucose (74-99) mg/dL POC Glucose (mg/dL) 185 H 188 H (75-99) mg/dL Calcium (8.4-10.2) mg/dL Phosphorus (2.5-4.5) mg/dL Magnesium (1.6-2.3) mg/dL 01/18/18 01/18/18 01/18/18 Range/Units 01:41 04:23 04:23 WBC 11.7 H (3.8-10.6) k/uL MCHC 30.3 L (31.0-37.0) g/dL RDW 16.4 H (11.5-15.5) % Plt Count 114 L (150-450) k/uL Neutrophils # (Manual) 9.80 H (1.3-7.7) k/uL Lymphocytes # (Manual) 0.94 L (1.0-4.8) k/uL Metamyelocytes # (Man) 0.47 H (0) k/uL Nucleated RBCs 2 H (0-0) /100 WBC ABG pH (7.35-7.45) ABG pCO2 (35-45) mmHg ABG pO2 (83-108) mmHg ABG HCO3 (21-25) mmol/L ABG Total CO2 (19-24) mmol/L ABG O2 Saturation (94-97) % Potassium 5.7 H (3.5-5.1) mmol/L BUN 99 H* (7-17) mg/dL Creatinine 2.10 H (0.52-1.04) mg/dL Glucose 170 H (74-99) mg/dL POC Glucose (mg/dL) 184 H (75-99) mg/dL Calcium 7.6 L (8.4-10.2) mg/dL Phosphorus 8.9 H* (2.5-4.5) mg/dL Magnesium 2.5 H (1.6-2.3) mg/dL 01/18/18 01/18/18 01/18/18 Range/Units 04:45 05:17 12:00 WBC (3.8-10.6) k/uL MCHC (31.0-37.0) g/dL RDW (11.5-15.5) % Plt Count (150-450) k/uL Neutrophils # (Manual) (1.3-7.7) k/uL Lymphocytes # (Manual) (1.0-4.8) k/uL Metamyelocytes # (Man) (0) k/uL Nucleated RBCs (0-0) /100 WBC ABG pH 7.23 L (7.35-7.45) ABG pCO2 65 H (35-45) mmHg ABG pO2 65 L (83-108) mmHg ABG HCO3 27 H (21-25) mmol/L ABG Total CO2 29 H (19-24) mmol/L ABG O2 Saturation 89.5 L (94-97) % Potassium (3.5-5.1) mmol/L BUN (7-17) mg/dL Creatinine (0.52-1.04) mg/dL Glucose (74-99) mg/dL POC Glucose (mg/dL) 158 H 145 H (75-99) mg/dL Calcium (8.4-10.2) mg/dL Phosphorus (2.5-4.5) mg/dL Magnesium (1.6-2.3) mg/dL Assessment and Plan Assessment: -Septic shock: Secondary to influenza A infection, requiring fluids and pressors -Acute hypercapnic respiratory failure: Secondary to COPD exacerbation which is precipitated by influenza, community-acquired right lower lobe pneumonia, atelectasis and a masslike lesion in the right lower lobe-suspicious for malignancy. Acute Clostridium difficile colitis -Elevated d-dimer without any evidence of PE -Acute renal failure secondary to septic shock continue with IV fluids Atrial fibrillation with rapid and regular rate, presently rate controlled -No code, no CPR, no intubation. Plan: Continue current medication regime ,monitoring and symptomatic treatment. No family at bedside. Apparently midnight shift was able to reach family by phone. Family changed patient's CODE STATUS to DO NOT RESUSCITATE .Family states they are in Route to the hospital and will make further decisions upon arrival.Condition continues to decline, prognosis poor. Per nephrology patient needs replacement therapy but at this time not a candidate for dialysis. Trach and PEG also declined per family. Further recommendations to follow. The impression and plan of care has been dictated as directed. : I performed a history and examination of this patient, discussed the same with the dictator. I agree with the dictator's note ,documented as a scribe. Any additional findings or plans will be noted.
[2018-01-18] MEDS ORDERED: FUROSEMIDE 10 MG/ML 10 ML VIAL IV STA (17:56)
[2018-01-18 18:11] LABS: Glucose,Whole Blood 180 mg/dL (75-99)
[2018-01-18] MEDS ORDERED: SCOPOLAMINE 1.5MG/72HR PATCH TRANSDERM PRN (23:08)
[2018-01-18] MEDS ORDERED: ARTIFICIAL TEARS-HYPROMELLOSE DROPS 15 ML BTL BOTH EYES PRN (23:08)
[2018-01-18] MEDS ORDERED: ONDANSETRON 4 MG/2 ML VIAL IVP PRN (23:08)
[2018-01-18] MEDS ORDERED: LORazepam 2 MG/ML INJ IV PRN (23:08)
[2018-01-18] MEDS ORDERED: MORPHINE SULFATE 4 MG/ML SYRINGE IV PRN ×2 (23:08)
[2018-01-18] MEDS ORDERED: MORPHINE SULFATE (100 MG/2 ML) 100 MG in SODIUM CHLORIDE 0.9% 100 ML IV SCH ×2 (23:15→23:30)
[2018-01-19 01:08] VITALS: BP 97/40; PULSE 83; RESP 8
--- NOTE | 2018-01-19 12:54 | DS ---
DISCHARGE SUMMARY The preliminary cause of Influenza A with septic shock. Other diagnoses are: 1. Acute hypoxic hypercapnic respiratory failure secondary to chronic obstructive pulmonary disease acute exacerbation with right lower lobe pneumonia. 2. Masslike lesion in the right lower lobe area possibly suspicion of malignancy. 3. Acute Clostridium difficile colitis. 4. Elevated D-dimer. 5. Acute on chronic renal failure. 6. Atrial fibrillation with rapid ventricular rate. HISTORY OF PRESENT ILLNESS: This is a 72-year-old woman with a past medical history of multiple medical problems, admitted with features of influenza A pneumonia and as well as multiple other medical problems. The patient was monitored in ICU. She involved multiple consultants including Pulmonary and care was coordinated and the patient did not respond to the treatment well and case discussed with family and the family decided to go with comfort measures. The patient subsequently. Once again, the prognosis remains guarded and patient had multiple complex medical issues throughout the hospitalization. Please refer to the previous history and physical and progress notes and consultation for further details. MMODL / IJN: [id number] /
== END 2018-01-19 04:14 | disposition expired | DRG 870 ==
LOC: EC 01:57 → 6ICU 05:35
PROVIDERS: ADMIT Hospitalist; ATTEND Hospitalist
PROC: 5A1955Z Respiratory Ventilation, Greater than 96 Consecutive Hours (ICD-10-PCS; principal; 2018-01-10)
PROC: 02HV33Z Insertion of Infusion Device into Superior Vena Cava, Percutaneous Approach (ICD-10-PCS; 2018-01-11)
PROC: 03HY32Z Insertion of Monitoring Device into Upper Artery, Percutaneous Approach (ICD-10-PCS; 2018-01-16)
PROC: 4A133B1 Monitoring of Arterial Pressure, Peripheral, Percutaneous Approach (ICD-10-PCS; 2018-01-16)
PROC: 4A133J1 Monitoring of Arterial Pulse, Peripheral, Percutaneous Approach (ICD-10-PCS; 2018-01-16)
DX: A41.9 Sepsis, unspecified organism (principal); J11.00 Influenza due to unidentified influenza virus with unspecified type of pneumonia; N17.0 Acute kidney failure with tubular necrosis; J96.02 Acute respiratory failure with hypercapnia; J96.01 Acute respiratory failure with hypoxia; R65.21 Severe sepsis with septic shock; I11.0 Hypertensive heart disease with heart failure; J18.9 Pneumonia, unspecified organism; E87.4 Mixed disorder of acid-base balance; A04.72 Enterocolitis due to Clostridium difficile, not specified as recurrent; I50.32 Chronic diastolic (congestive) heart failure; C34.90 Malignant neoplasm of unspecified part of unspecified bronchus or lung; J44.0 Chronic obstructive pulmonary disease with (acute) lower respiratory infection; J44.1 Chronic obstructive pulmonary disease with (acute) exacerbation; Z68.41 Body mass index [BMI] 40.0-44.9, adult; L03.116 Cellulitis of left lower limb; E66.9 Obesity, unspecified; I48.0 Paroxysmal atrial fibrillation; R79.1 Abnormal coagulation profile; Z66 Do not resuscitate; R59.0 Localized enlarged lymph nodes; N63.20 Unspecified lump in the left breast, unspecified quadrant; E87.5 Hyperkalemia; E83.39 Other disorders of phosphorus metabolism; I25.10 Atherosclerotic heart disease of native coronary artery without angina pectoris; L30.9 Dermatitis, unspecified; R25.1 Tremor, unspecified; R45.1 Restlessness and agitation; Z51.5 Encounter for palliative care; Z99.81 Dependence on supplemental oxygen; Z87.891 Personal history of nicotine dependence; Z82.49 Family history of ischemic heart disease and other diseases of the circulatory system; Z80.9 Family history of malignant neoplasm, unspecified; Z79.899 Other long term (current) drug therapy; Z79.4 Long term (current) use of insulin; Z79.51 Long term (current) use of inhaled steroids; Z79.52 Long term (current) use of systemic steroids; Z88.0 Allergy status to penicillin; Z91.018 Allergy to other foods
CPT/HCPCS: 36415; 36569; 36600; 71045; 71275; 76937; 80048; 80053; 81003; 82330; 82550; 82553; 82805; 83735; 83880; 84100; 84132; 84484; 85025; 85027; 85379; 85610; 85730; 87070; 87205; 87324; 87502; 93005; 94002; 94003; 94640; 96365; 96366; 96374; 99285